=== PATIENT | female | born 1980 | race Caucasian/White ===

== ENCOUNTER 2018-04-29 18:14 | Emergency (ER) | payer SELFPAY ==
[~2018-04-29] VITALS: Ht 170.2 cm; Wt 59.0 kg
[~2018-04-29 18:14] MED LIST: ACHD5005 PO; CALC-140 PO; CYCL10TA9 PO; DICY20TA10 PO; FERR-65 PO; FRS325T PO; GBPN100C PO; HYDR-2890 PO; IBP800T PO; LAMO25TA PO; METO10TA3 PO; METR500T PO; NF-ESOM40C PO; PANT20TA PO; PREN1TAB14 PO; ZLP10T PO
--- OUTSIDE RECORDS SUMMARY | 2018-04-29 18:19 | XMS REPORT ---
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 879315833 Problem Other and unspecified bipolar disorders 296.89 Active 01430726 Problem Encounter for insertion of intrauterine contraceptive device V25.11 Active 92169568 Problem Posttraumatic stress disorder 309.81 Active 26500587 Problem Unspecified antepartum hemorrhage, unspecified as to episode of care 641.90 Active 57390021 Problem Other symptoms referable to back 724.8 Active 591176886 Problem Acute upper respiratory infections of unspecified site 465.9 Active 47133600 Problem Unspecified vaginitis and vulvovaginitis 616.10 Active 982309200 Problem Routine follow-up V24.2 Active 467876452 Problem Unspecified high-risk V23.9 Active 60569943 Problem Encounter for long-term (current) use of other medications V58.69 Active 984486221 Problem Other general counseling and advice for contraceptive management V25.09 Active 163967443 Problem Dysuria 788.1 Active 77119606 Problem Diarrhea 787.91 Active 44497633 Problem DTAP TEST V06.1 Active Problem Heartburn 787.1 Active 98297383 Problem Need for prophylactic vaccination and inoculation against rubella alone V04.3 Active 873279302 Problem Nausea alone 787.02 Active 895373745 ALLERGIES Substance Reaction Event Type Date Status Percocet lethargy Drug Allergy Oct, Active ENCOUNTERS Encounter Location Date Diagnosis [facility] [address] [facility] [id number] [address] Oct, Laceration of floor of mouth, initial encounter S01.512A [facility] [address] [id number] Oct, Laceration of floor of mouth, initial encounter S01.512A [facility] [address] [id number] [place] [address] 14 Dec, 2014 [facility] [address] [id number] [place] [address] Dec, [facility] [address] [id number] [place] [address] May, [facility] [address] [facility] [id number] [place] [address] May, [facility] [address] [facility] [id number] [place] [address] Mar, [facility] [address] [facility] [id number] [place] [address] January, [facility] [address] [facility] [id number] [place] [address] January, [facility] [address] [facility] [id number] [place] [address] January, [facility] [address] [facility] [id number] [place] [address] January, [facility] [address] [facility] [id number] [place] [address] Dec, [facility] [address] [facility] [id number] [place] [address] Nov, [facility] [address] [facility] [id number] [place] [address] Nov, [facility] [address] [facility] [id number] [place] [address] Nov, [facility] [address] [facility] [id number] [place] [address] Nov, [facility] [address] [id number] [place] [address] Oct, [facility] [place] [facility] [address] [id number] [place] [address] Oct, [facility] [address] [facility] [id number] [place] [address] Oct, [facility] [place] [facility] [address] [id number] [place] [address] 16 Oct, 2012 [facility] [address] [id number] [place] [address] 15 Oct, 2012 [facility] [address] [id number] [place] [address] 14 Oct, 2012 [facility] [address] [id number] [place] [address] Oct, [facility] [place] [facility] [address] [id number] [place] [address] 19 Sep, 2012 [facility] [address] [id number] [place] [address] 18 Sep, 2012 [facility] [place] [facility] [address] [id number] [place] [address] 17 Sep, 2012 [facility] [place] [facility] [address] [id number] [place] [address] 17 Sep, 2012 [facility] [place] [facility] [address] [id number] [place] [address] 16 Sep, 2012 [facility] [place] [facility] [address] [id number] [place] [address] 15 Sep, 2012 [facility] [place] [facility] [address] [id number] [place] [address] 14 Sep, 2012 [facility] [place] [facility] [address] [id number] [place] [address] 14 Sep, 2012 [facility] [place] [facility] [address] [id number] [place] [address] 13 Sep, 2012 [facility] [address] [id number] [place] [address] 13 Sep, 2012 [facility] [address] [id number] [place] [address] Aug, [facility] [address] [id number] [place] [address] Aug, [facility] [address] [id number] [place] [address] Aug, [facility] [address] [id number] [place] [address] Aug, [facility] [address] [id number] [place] [address] Aug, [facility] [address] [id number] [place] [address] Aug, [facility] [address] [id number] [place] [address] 15 Aug, 2012 [facility] [address] [id number] [place] [address] Nov, [facility] [address] [id number] [place] [address] Oct, [facility] [address] [id number] [place] [address] Oct, [facility] [address] [id number] [place] [address] Sep, [facility] [place] [facility] [address] [id number] [place] [address] Sep, [facility] [place] [facility] [address] [id number] [place] [address] Sep, [facility] [address] [id number] [place] [address] Sep, [facility] [address] [facility] [id number] [place] [address] Sep, [facility] [address] [facility] [id number] [place] [address] Sep, [facility] [address] [facility] [id number] [place] [address] Sep, IMMUNIZATIONS No Known Immunizations SOCIAL HISTORY Never Assessed REASON FOR VISIT USP PLAN OF CARE VITAL SIGNS Height 67 in 2017-10-10 Weight 132 lbs 2017-10-10 Heart Rate 76 bpm 2017-10-10 Respiratory Rate 16 2017-10-10 BMI 20.67 kg/m2 2017-10-10 Blood pressure systolic 108 mmHg 2017-10-10 Blood pressure diastolic 78 mmHg 2017-10-10 MEDICATIONS Medication Instructions Dosage Frequency Start Date End Date Duration Status Depakote 500 mg Orally 2 times a day 1 tablet 12h Oct, Active Bactrim DS 800-160 MG Orally Twice a day 1 tablet 12h Oct,Oct 10 day(s) Active RESULTS No Results PROCEDURES No Known procedures INSTRUCTIONS MEDICATIONS ADMINISTERED No Known Medications
--- OUTSIDE RECORDS SUMMARY | 2018-04-29 18:19 | XMS REPORT ---
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 895130571 Problem Other and unspecified bipolar disorders 296.89 Active 65285059 Problem Encounter for insertion of intrauterine contraceptive device V25.11 Active 05865490 Problem Posttraumatic stress disorder 309.81 Active 18148458 Problem Unspecified antepartum hemorrhage, unspecified as to episode of care 641.90 Active 38644042 Problem Other symptoms referable to back 724.8 Active 852930863 Problem Acute upper respiratory infections of unspecified site 465.9 Active 86969486 Problem Unspecified vaginitis and vulvovaginitis 616.10 Active 250100214 Problem Routine follow-up V24.2 Active 096944817 Problem Unspecified high-risk V23.9 Active 67894981 Problem Encounter for long-term (current) use of other medications V58.69 Active 760979392 Problem Other general counseling and advice for contraceptive management V25.09 Active 752524701 Problem Dysuria 788.1 Active 05643464 Problem Diarrhea 787.91 Active 98342633 Problem DTAP TEST V06.1 Active Problem Heartburn 787.1 Active 25258889 Problem Need for prophylactic vaccination and inoculation against rubella alone V04.3 Active 468722165 Problem Nausea alone 787.02 Active 340643692 ALLERGIES No Information ENCOUNTERS Encounter Location Date Diagnosis [facility] [address] [facility] [id number] [address] Oct, Laceration of floor of mouth, initial encounter S01.512A [facility] [address] [place] [id number] Oct, Laceration of floor of mouth, initial encounter S01.512A [facility] [address] [id number] [place] [address] 14 Dec, 2014 [facility] [address] [id number] [place] [address] Dec, [facility] [address] [id number] [place] [address] May, [facility] [address] [id number] [place] [address] May, [facility] [address] [facility] [id number] [place] [address] Mar, [facility] [address] [id number] [place] [address] January, [facility] [address] [id number] [place] [address]- 1408 January, [facility] [address] [id number] [place] [address]- 95[address] January, [facility] [address] [place] [id number] [place] [address] January, [facility] [address] [id number] [place] [address]- 12[address] Dec, [facility] [address] [id number] [place] [address]- 83[address] Nov, [facility] [address] [id number] [place] [address]- [address] Nov, [facility] [address] [facility] [id number] [place] [address] Nov, [facility] [address] [facility] [id number] [place] [address]- [address]676 Nov, [facility] [address] [id number] [place] [address]- 69[address] 23 Oct, 2012 [facility] [address] [id number] [place] [address]- [address] Oct, [facility] [address] [id number] [place] [address]- [address] 21 Oct, 2012 [facility] [address] [id number] [place] [address]- 3983 16 Oct, 2012 [facility] [address] [id number] [place] [address]- 77[address] 15 Oct, 2012 [facility] [address] [id number] [place] [address]- 3360 14 Oct, 2012 [facility] [address] [id number] [place] [address]- [address] 08 Oct, 2012 [facility] [address] [id number] [place] [address]- 7469 19 Sep, 2012 [facility] [address] [id number] [place] [address]- 59[address] 18 Sep, 2012 [facility] [address] [id number] [place] [address]- 8598 17 Sep, 2012 [facility] [address] [id number] [place] [address]- 8761 17 Sep, 2012 [facility] [address] [id number] [place] [address]- [address]388 16 Sep, 2012 [facility] [address] [id number] [place] [address]- 6[address] 15 Sep, 2012 [facility] [address] [id number] [place] [address]- 9659 14 Sep, 2012 [facility] [address] [id number] [place] [address]- [address] 14 Sep, 2012 [facility] [address] [id number] [place] [address]- 54[address] 13 Sep, 2012 [facility] [place] [facility] [address] [id number] [place] [address]- 23[address] 13 Sep, 2012 [facility] [place] [facility] [address] [id number] [place] [address]- 3665 Aug, [facility] [place] [facility] [address] [id number] [place] [address]- 3287 Aug, [facility] [place] [facility] [address] [id number] [place] [address]- 0957 Aug, [facility] [place] [facility] [address] [id number] [place] [address]- 2583 Aug, [facility] [place] [facility] [address] [id number] [place] [address]- 5198 Aug, [facility] [place] [facility] [address] [id number] [place] [address]- [address] 15 Aug, 2012 [facility] [place] [facility] [address] [id number] [place] [address]- 68[address] 15 Aug, 2012 [facility] [place] [facility] [address] [id number] [place] [address]- 6[address] Nov, [facility] [place] [facility] [address] [id number] [place] [address]- 5[address] Oct, [facility] [place] [facility] [address] [id number] [place] [address]- 1197 Oct, [facility] [place] [facility] [address] [id number] [place] [address]- 6357 Sep, [facility] [place] [facility] [address] [id number] [place] [address]- 3507 Sep, [facility] [place] [facility] [address] [id number] [place] [address]- 8904 Sep, [facility] [place] [facility] [address] [id number] [place] [address]- 5693 Sep, [facility] [place] [facility] [address] [facility] [id number] [place] [address]- [address] Sep, [facility] [address] [facility] [id number] [place] [address]- [address] Sep, [facility] [address] [facility] [id number], [place] [address] Sep, IMMUNIZATIONS No Known Immunizations SOCIAL HISTORY Never Assessed REASON FOR VISIT Refill PLAN OF CARE VITAL SIGNS MEDICATIONS Medication Instructions Dosage Frequency Start Date End Date Duration Status Bactrim DS 800-160 MG Orally Twice a day 1 tablet 12h Oct,Oct 10 day(s) Active Depakote 500 MG Orally 2 times a day 1 tablet 12h Oct, 30 days Active RESULTS No Results PROCEDURES No Known procedures INSTRUCTIONS MEDICATIONS ADMINISTERED No Known Medications
--- OUTSIDE RECORDS SUMMARY | 2018-04-29 18:20 | XMS REPORT | Continuity of Care Document ---
Author Author [facility] Organization [facility] Address Unknown Phone Unavailable Support Name Relationship Address Phone HOWIE QUESADA Next Of Kin [address] [place] [address] Insurance Providers Payer Name Policy Number Subscriber Name Relationship [facility] [id number] Lucy Resendez 01 Self / Same As Patient Advance Directives Directive Response Recorded Date Advance Directives N 03/05/13 5:51pm Health Care Power of Dial Marker N 02/22/13 1:40pm Organ Donor Y 03/05/13 5:51pm Problems No Known Problems or Medical conditions. Allergies, Adverse Reactions, Alerts Allergen Type Severity Reaction Last Updated Oxycodone Allergy Unknown 07/06/07 Acetaminophen Allergy Unknown 07/06/07 Ciprofloxacin Allergy Unknown 12/15/06 Medications Medication Dose Units Route Sig Qty Days Cyclobenzaprine HCl (Cyclobenzaprine Hcl) 1 Each PO Q8HR PRN Vits W-Ca,Fe,Fa(<1MG) ( Vitamins) 1 Each PO DAILY Esomeprazole Magnesium (Nexium) 1 Cap PO DAILY PRN 30 Zolpidem Tartrate (Ambien 10 Mg) 10 Mg PO HS Dicyclomine Hcl 20 Mg PO PRN Lamotrigine 50 Mg PO DAILY Gabapentin (Neurontin) 100 Mg PO TID Immunizations Name Given Type Date of Influenza Vaccine 08/02/12 H Response Recorded Date/Time Status not known Unknown Results No Known Relevant Diagnostic Tests, Laboratory Data and/or Discharge Summary. Procedures Procedure Code Date LAPAROSCOPY SALPINGOSTOMY 47912 05/18/06 TREAT ECTOPIC 89121 05/18/06 DILATION AND CURETTAGE 46290 05/18/06 TREAT ECTOPIC 32168 06/16/06 RPR VENTRAL MARIVEL INIT BLOCK 41865 LOW CERVICAL 74.1 09/20/07 INSTRUMENT DELIVERY NOS 72.9 09/20/07 LAP INC HERNIA REPAIR RECUR 09194 Encounters Encounter Location Date/Time Pre-admitted Inpatient [facility] 2:30pm Departed Emergency Room [facility] 29/09 3:19pm Discharged Inpatient [facility] 6:07am
--- OUTSIDE RECORDS SUMMARY | 2018-04-29 18:20 | XMS REPORT | Continuity of Care Document ---
Author Author [facility] Organization [facility] Address Unknown Phone Unavailable Support Name Relationship Address Phone HOWIE QUESADA Next Of Kin [address] [place] [address] Insurance Providers Payer Name Policy Number Subscriber Name Relationship [facility] [id number] Angelica Resendez 01 Self / Same As Patient Advance Directives Directive Response Recorded Date Advance Directives N 03/05/13 5:51pm Health Care Power of Coil Tier N 02/22/13 1:40pm Organ Donor Y 03/05/13 [...] Recorded Date/Time Status not known Unknown Results Test Date Result Interp. Ref. Range Alanine Aminotransferase (ALT/SGPT) December 23, 2008 5:35am 24 U/L L 30-65 Albumin December 23, 2008 5:35am 3.6 G/DL N 3.4-5.0 Alkaline Phosphatase December 23, 2008 5:35am 94 U/L N 50-136 Amphetamines Screen May 18, 2006 7:50pm Negative - Amylase Level April 06, 2008 7:45pm 28 U/ L N 25-115 Anisocytosis May 19, 2006 6:13am Slight - Aspartate Amino Transf (AST/SGOT) December 23, 2008 5:35am 12 U/L L 15-37 BUN/Creatinine Ratio October 30, 2011 3:53pm 14 - Band Neutrophils May 19, 2006 6:13am 2 - Basophils # (Auto) October 30, 2011 3:53pm 0.0 10^3/uL N 0.0-0.1 Basophils (%) (Auto) October 30, 2011 3:53pm 1 % N 0-10 Blood Urea Nitrogen October 30, 2011 3:53pm 11 MG/DL N 7-18 Calcium Level October 30, 2011 3:53pm 8.6 MG/DL N 8.5-10.1 Carbon Dioxide Level October 30, 2011 3:53pm 28 MMOL/L N 21-32 Chlamydia DNA Probe June 16, 2006 4:15am Neg - Chlamydia/GC DNA Probe Source June 16, 2006 4:15am Cervix - Chloride Level October 30, 2011 3:53pm 98 MMOL/L L 101-110 Cocaine Screen May 18, 2006 7:50pm Negative - Creatinine October 30, 2011 3:53pm 0.8 MG/DL N 0.6-1.3 Eosinophils # (Auto) October 30, 2011 3:53pm 0.1 10^3/uL N 0.0-0.3 Eosinophils % (Manual) May 19, 2006 6:13am 6 - Eosinophils (%) (Auto) October 30, 2011 3:53pm 2 % N 0-10 Glucose Level October 30, 2011 3:53pm 89 MG/DL N 74-106 Group A Streptococcus Screen December 23, 2008 5:56am NEGATIVE - HIV (1&2) Antibody May 18, 2006 7:00pm See report - HIV (1&2) Antibody Interpretation May 18, 2006 7:00pm See report - Hematocrit October 30, 2011 3:53pm 39 % N 35-52 Hemoglobin February 22, 2013 3:20pm 9.9 G/DL L 11.5-16.0 Hepatitis B Surface Antigen May 18, 2006 7:00pm See report - Human Chorionic Gonadotropin, Quant June 16, 2006 4: 00am 283 MIU/ML H 0-6 Lipase April 06, 2008 7:45pm 165 U/L N 114-286 Lymphocytes # (Auto) October 30, 2011 3:53pm 1.5 X 10^3 N 1.0-4.0 Lymphocytes % (Manual) May 19, 2006 6:13am 53 - Lymphocytes (%) (Auto) October 30, 2011 3:53pm 17 % N 12-44 Marijuana (THC) Screen May 18, 2006 7:50pm Positive - Mean Corpuscular Hemoglobin October 30, 2011 3:53pm 33 PG N 25-34 Mean Corpuscular Hemoglobin Concent October 30, 2011 3:53pm 34 G/DL N 32-36 Mean Corpuscular Volume October 30, 2011 3:53pm 95 FL N 80-99 Mean Platelet Volume October 30, 2011 3:53pm 10.1 FL N 7.4-10.4 Microcytosis May 19, 2006 6:13am Slight - Monocytes # (Auto) October 30, 2011 3:53pm 0.6 X 10^3 N 0.0-1.0 Monocytes % (Manual) May 19, 2006 6:13am 4 - Monocytes (%) (Auto) October 30, 2011 3:53pm 7 % N 0-12 Neisseria gonorrhoeae DNA Probe June 16, 2006 4:15am Neg - Neutrophils # (Auto) October 30, 2011 3:53pm 6.4 X 10^3 N 1.8-7.8 Neutrophils % (Manual) May 19, 2006 6:13am 35 - Neutrophils (%) (Auto) October 30, 2011 3:53pm 73 % N 42-75 Opiates Screen May 18, 2006 7:50pm Positive - Platelet Count October 30, 2011 3:53pm 264 10^3/uL N 130-400 Potassium Level October 30, 2011 3:53pm 3.8 MMOL/L N 3.6-5.0 Rapid Plasma Reagin May 18, 2006 7:00pm Non-reactive - Red Blood Count October 30, 2011 3:53pm 4.12 10^6/uL L 4.35-5.85 Red Cell Distribution Width October 30, 2011 3:53pm 12.3 % N 10.0-14.5 Serum Test, Qualitative October 30, 2011 3:53pm NEGATIVE - Sodium Level October 30, 2011 3:53pm 136 MMOL/L N 135-145 Thyroid Stimulating Hormone (TSH) December 13, 2006 12:55pm 1.23 UIU/ML N 0.34-5.60 Total Bilirubin December 23, 2008 5:35am 0.3 MG/DL N 0.0-1.0 Total Protein December 23, 2008 5:35am 7.7 G/DL N 6.4-8.2 Tricyclic Antidepressants Screen May 18, 2006 7:50pm Negative - Ur Tricyclic Antidepressants Screen December 15, 2006 12:00pm Positive - Urine Amorphous Sediment October 30, 2011 4:30pm RARE ECTOR URATES H - Urine Amphetamines Screen December 15, 2006 12:00pm Negative - Urine Bacteria October 30, 2011 4:30pm TRACE - Urine Barbiturates Screen December 15, 2006 12:00pm Negative - Urine Benzodiazepines Screen December 15, 2006 12:00pm Negative - Urine Bilirubin October 30, 2011 4:30pm NEGATIVE - Urine Casts October 30, 2011 4:30pm NONE - Urine Clarity October 30, 2011 4:30pm CLEAR - Urine Cocaine Screen December 15, 2006 12:00pm Negative - Urine Color October 30, 2011 4:30pm YELLOW - Urine Crystals October 30, 2011 4:30pm PRESENT H - Urine Culture Indicated October 30, 2011 4:30pm NO - Urine Glucose (UA) October 30, 2011 4:30pm NEGATIVE - Urine Ketones October 30, 2011 4:30pm NEGATIVE - Urine Leukocyte Esterase October 30, 2011 4:30pm 1+ H - Urine Methamphetamines Screen December 15, 2006 12:00pm Negative - Urine Mucus October 30, 2011 4:30pm TRACE - Urine Nitrate September 20, 2007 6:10am Negative - Urine Nitrite October 30, 2011 4:30pm NEGATIVE - Urine Opiates Screen December 15, 2006 12:00pm Negative - Urine Phencyclidine Screen December 15, 2006 12:00pm Negative - Urine Test September 12, 2011 2:01pm NEGATIVE - Urine Propoxyphene Screen December 15, 2006 12:00pm Negative - Urine Protein October 30, 2011 4:30pm NEGATIVE - Urine RBC October 30, 2011 4:30pm 0-2 / HPF - Urine Specific [place] October 30, 2011 4:30pm 1.015 L - Urine Squamous Epithelial Cells October 30, 2011 4:30pm 5-10 - Urine Urobilinogen October 30, 2011 4:30pm NORMAL MG/DL - Urine WBC October 30, 2011 4:30pm NONE / HPF - Urine pH October 30, 2011 4:30pm 6.0 - White Blood Count October 30, 2011 3:53pm 8.8 10^3/uL N 4.3-11.0 Barbiturate Screen May 18, 2006 7:50pm Negative - Serum Alcohol May 19, 2006 6:13am < 5 MG/DL L 5-300 Lab Scanned Report July 04, 2011 12:50pm LAB Reports [id number] - Estimat Glomerular Filtration Rate October 30, 2011 3:53pm > 60 - Urine Oxycodone Screen December 15, 2006 12:00pm Negative - Urine Methadone Screen December 15, 2006 12:00pm Negative - Urine Cannabinoids Screen December 15, 2006 12:00pm Positive - Urine RBC (Auto) October 30, 2011 4:30pm 1+ H - Procedures Procedure Code Date LAPAROSCOPY SALPINGOSTOMY 24760 05/18/06 TREAT ECTOPIC 75967 05/18/06 DILATION AND CURETTAGE 95548 05/18/06 TREAT ECTOPIC 78900 06/16/06 RPR VENTRAL MARIVEL INIT BLOCK 09454 LOW CERVICAL 74.1 09/20/07 INSTRUMENT DELIVERY NOS 72.9 09/20/07 LAP INC HERNIA REPAIR RECUR 06202 Wet Prep 06/16/06 MRSA Screen 04/30/09 Urine Culture 04/06/08 Gram Stain 12/01/07 Encounters Encounter Location Date/Time Discharged Inpatient [facility] 5:45pm Pre-admitted Inpatient [facility] 2:30pm Departed Emergency Room [facility] 29/09 3:19pm
--- OUTSIDE RECORDS SUMMARY | 2018-04-29 18:20 | XMS REPORT | Continuity of Care Document ---
Author Author [facility] Organization [facility] Address Unknown Phone Unavailable Support Name Relationship Address Phone HOWIE QUESADA Next Of Kin [address] [place] [address] Insurance Providers Payer Name Policy Number Subscriber Name Relationship [facility] [id number] Angelica Resendez 01 Self / Same As Patient Advance Directives Directive Response Recorded Date Advance Directives N 02/22/13 1:40pm Health Care Power of Editor City N 02/22/13 1:40pm Organ Donor Y 02/22/13 1:40pm Problems No Known Problems or Medical conditions. Allergies, Adverse Reactions, Alerts Allergen Type Severity Reaction Last Updated Oxycodone Allergy Unknown 07/06/07 Acetaminophen Allergy Unknown 07/06/07 Ciprofloxacin Allergy Unknown 12/15/06 Medications Medication Dose Units Route Sig Qty Days Vits W-Ca,Fe,Fa(<1MG) ( Vitamins) 1 Each PO DAILY Zolpidem Tartrate (Ambien 10 Mg) 10 Mg PO HS Esomeprazole Magnesium (Nexium) 1 Cap PO DAILY 30 Dicyclomine Hcl 20 Mg PO PRN Lamotrigine [...] 2011 3:53pm 39 % N 35-52 Hemoglobin October 30, 2011 3:53pm 13.4 G/DL N 11.5-16.0 Hepatitis B Surface Antigen May 18, [...] 4:30pm 0-2 / HPF - Urine Specific [place] October 30, 2011 4:30pm 1.015 L - [...] Report July 04, 2011 12:50pm LAB Reports [id number] - Estimat Glomerular Filtration Rate October 30, 2011 3:53pm > 60 - Urine Oxycodone Screen December 15, 2006 12:00pm Negative - Urine Methadone Screen December 15, 2006 12:00pm Negative - Urine Cannabinoids Screen December 15, 2006 12:00pm Positive - Urine RBC (Auto) October 30, 2011 4:30pm 1+ H - Procedures Procedure Code Date LAPAROSCOPY SALPINGOSTOMY 34117 05/18/06 TREAT ECTOPIC 77583 05/18/06 DILATION AND CURETTAGE 55838 05/18/06 TREAT ECTOPIC 40874 06/16/06 RPR VENTRAL AMRIVEL INIT BLOCK 72093 LOW CERVICAL 74.1 09/20/07 INSTRUMENT DELIVERY NOS 72.9 09/20/07 LAP INC HERNIA REPAIR RECUR 46318 Wet Prep 06/16/06 MRSA Screen 04/30/09 Urine Culture 04/06/08 Gram Stain 12/01/07 Encounters Encounter Location Date/Time Departed Emergency Room [facility] 29/09 3:19pm Discharged Inpatient [facility] 6:07am
--- OUTSIDE RECORDS SUMMARY | 2018-04-29 18:20 | XMS REPORT | Continuity of Care Document ---
Author Author [facility] Organization [facility] Address Unknown Phone Unavailable Support Name Relationship Address Phone HOWIE QUESADA Next Of Kin [address] [place] [address] Insurance Providers Payer Name Policy Number Subscriber Name Relationship [facility] [id number] Angelica Resendez 01 Self / Same As Patient Advance Directives Directive Response Recorded Date Advance Directives N 03/09/13 11:25pm Health Care Power of Linen Manager N 02/22/13 1:40pm Organ Donor Y 03/09/13 11:25pm Problems No Known Problems or Medical conditions. Allergies, Adverse Reactions, Alerts Allergen Type Severity Reaction Last Updated Oxycodone Allergy Unknown 07/06/07 acetaminophen Allergy Unknown 07/06/07 ciprofloxacin Allergy Unknown 12/15/06 Medications Medication Dose Units Route Sig Qty Days Hydrocodone Bit/Acetaminophen (Hydrocodon-Acetaminophn 10-325) 1 Each PO PRN Cyclobenzaprine HCl (Cyclobenzaprine Hcl) 1 Each PO [...] 4:30pm 0-2 / HPF - Urine Specific [place] October 30, 2011 4:30pm 1.015 L - [...] Report July 04, 2011 12:50pm LAB Reports [id number] - Estimat Glomerular Filtration Rate October 30, 2011 3:53pm > 60 - Urine Oxycodone Screen December 15, 2006 12:00pm Negative - Urine Methadone Screen December 15, 2006 12:00pm Negative - Urine Cannabinoids Screen December 15, 2006 12:00pm Positive - Urine RBC (Auto) October 30, 2011 4:30pm 1+ H - Procedures Procedure Code Date LAPAROSCOPY SALPINGOSTOMY 05711 05/18/06 TREAT ECTOPIC 37564 05/18/06 DILATION AND CURETTAGE 93991 05/18/06 TREAT ECTOPIC 07213 06/16/06 RPR VENTRAL MARIVEL INIT BLOCK 79080 LOW CERVICAL 74.1 09/20/07 INSTRUMENT DELIVERY NOS 72.9 09/20/07 LAP INC HERNIA REPAIR RECUR 30978 Wet Prep 06/16/06 MRSA Screen 04/30/09 Urine Culture 04/06/08 Gram Stain 12/01/07 Encounters Encounter Location Date/Time Pre-admitted Inpatient [facility] 2:30pm Departed Emergency Room [facility] 29/09 3:19pm Discharged Inpatient [facility] 6:07am
--- OUTSIDE RECORDS SUMMARY | 2018-04-29 18:21 | XMS REPORT | Continuity of Care Document ---
Author Author [facility] Organization [facility] Address Unknown Phone Unavailable Support Name Relationship Address Phone HOWIE QUESADA Next Of Kin [address] [place] [address] Insurance Providers Payer Name Policy Number Subscriber Name Relationship [facility] [id number] Angelica Resendez 01 Self / Same As Patient Advance Directives Directive Response Recorded Date Advance Directives N 03/19/13 9:22am Health Care Power of Archery Equipment Hay Sorter N 03/19/13 9:22am Organ Donor Y 03/19/13 9:22am Problems No Known Problems or Medical conditions. Family History History Response Recorded Date/Time Hx Family Cancer Y GRANDPARENTS 03/19/13 9:30am Hx Family Lung Cancer Y 03/19/13 9:30am Hx Family Cardiac Disorders Y 03/19/13 9: 30am Hx Family Hypertension N 03/19/13 9:30am Social History History Response Recorded Date/Time Alcohol Use Denies Use 03/19/13 9:23am Recreational Drug Use N ALCOHOL, 9:23am Recent Foreign Travel N 03/19/13 9:23am Recent Infectious Disease Exposure N 9:23am Hospitalization with Isolation Denies 1:48pm Sexually Transmitted Disease N 03/19/13 9 :23am HIV/AIDS N 03/19/13 9:23am Allergies, Adverse Reactions, Alerts Allergen Type Severity Reaction Last Updated Oxycodone Allergy Unknown 07/06/07 acetaminophen Allergy Unknown 07/06/07 Medications Medication Dose Units Route Sig Qty Days Ferrous Sulfate (Iron) 1 Tab PO DAILY 90 Ibuprofen (Motrin) 600 Mg PO Q6HR 40 Acetaminophen/Hydrocodone Bitart (Lorcet 5/325 Mg) 1 - 2 Tab PO q 4-6 hrs prn PRN 45 Metoclopramide HCl (Metoclopramide Hcl) 10 Mg PO QID Pantoprazole Sodium 20 Mg PO DAILY Hydrocodone Bit/Acetaminophen (Hydrocodon-Acetaminophn 10-325) 10 - 325 Mg PO EVERY 4-6 HOURS PRN Vits W-Ca,Fe,Fa(<1MG) ( Vitamins) 1 Tab PO DAILY Metronidazole 500 Mg PO BID FOR 7 DAYS Cyclobenzaprine HCl (Cyclobenzaprine Hcl) 1 Each PO Q8HR PRN Esomeprazole Magnesium (Nexium) 1 Cap PO DAILY PRN 30 Zolpidem Tartrate (Ambien 10 Mg) 10 Mg PO HS Dicyclomine Hcl 20 Mg PO PRN Lamotrigine 50 Mg PO DAILY Gabapentin (Neurontin) 100 Mg PO TID Immunizations Name Given Type Date of Influenza Vaccine 08/02/12 H MMR 03/21/13 A DTaP 03/19/13 A Response Recorded Date/Time Status not known Unknown [...] 2006 6:13am 2 - Basophils # (Auto) March 13, 2013 3:00pm 0.0 10^3/uL N 0.0-0.1 Basophils (%) (Auto) March 13, 2013 3:00pm 0 % N 0-10 Blood Urea Nitrogen October 30, 2011 3:53pm 11 MG/DL N 7-18 Calcium Level October 30, 2011 3:53pm 8.6 MG/DL N 8.5-10.1 Carbon Dioxide Level October 30, 2011 3:53pm 28 MMOL/L N 21-32 Chlamydia DNA Probe March 10, 2013 10:35am NEG - Chlamydia/GC DNA Probe Source March 10, 2013 10:35am UNKNOWN - Chloride Level October 30, 2011 3:53pm 98 MMOL/L L 101-110 Cocaine Screen May 18, 2006 7:50pm Negative - Creatinine October 30, 2011 3:53pm 0.8 MG/DL N 0.6-1.3 Eosinophils # (Auto) March 13, 2013 3:00pm 0.1 10^3/uL N 0.0-0.3 Eosinophils % (Manual) May 19, 2006 6:13am 6 - Eosinophils (%) (Auto) March 13, 2013 3:00pm 1 % N 0-10 Glucose Level October 30, 2011 3:53pm 89 MG/DL N 74-106 Group A Streptococcus Screen December 23, 2008 5:56am NEGATIVE - HIV (1&2) Antibody May 18, 2006 7:00pm See report - HIV (1&2) Antibody Interpretation May 18, 2006 7:00pm See report - Hematocrit March 13, 2013 3:00pm 31 % L 35-52 Hemoglobin March 13, 2013 3:00pm 10.4 G/ DL L 11.5-16.0 Hepatitis B Surface Antigen May 18, 2006 7:00pm See report - Human Chorionic Gonadotropin, Quant June 16, 2006 4: 00am 283 MIU/ML H 0-6 Lipase April 06, 2008 7:45pm 165 U/L N 114-286 Lymphocytes # (Auto) March 13, 2013 3:00pm 1.8 X 10^3 N 1.0-4.0 Lymphocytes % (Manual) May 19, 2006 6:13am 53 - Lymphocytes (%) (Auto) March 13, 2013 3:00pm 14 % N 12-44 Marijuana (THC) Screen May 18, 2006 7:50pm Positive - Mean Corpuscular Hemoglobin March 13, 2013 3:00pm 33 PG N 25-34 Mean Corpuscular Hemoglobin Concent March 13, 2013 3:00pm 34 G/DL N 32-36 Mean Corpuscular Volume March 13, 2013 3:00pm 96 FL N 80-99 Mean Platelet Volume March 13, 2013 3:00pm 12.0 FL H 7.4-10.4 Microcytosis May 19, 2006 6:13am Slight - Monocytes # (Auto) March 13, 2013 3:00pm 1.0 X 10^3 N 0.0-1.0 Monocytes % (Manual) May 19, 2006 6:13am 4 - Monocytes (%) (Auto) March 13, 2013 3:00pm 7 % N 0-12 Neisseria gonorrhoeae DNA Probe March 10, 2013 10:35am NEG - Neutrophils # (Auto) March 13, 2013 3:00pm 10.5 X 10^3 H 1.8-7.8 Neutrophils % (Manual) May 19, 2006 6:13am 35 - Neutrophils (%) (Auto) March 13, 2013 3:00pm 78 % H 42-75 Opiates Screen May 18, 2006 7:50pm Positive - Platelet Count March 13, 2013 3:00pm 146 10^3/uL N 130-400 Potassium Level October 30, 2011 3:53pm 3.8 MMOL/L N 3.6-5.0 Rapid Plasma Reagin May 18, 2006 7:00pm Non-reactive - Red Blood Count March 13, 2013 3:00pm 3.18 10^6/uL L 4.35-5.85 Red Cell Distribution Width March 13, 2013 3:00pm 12.3 % N 10.0-14.5 Serum Test, Qualitative [...] 4:30pm 0-2 / HPF - Urine Specific [place] October 30, 2011 4:30pm 1.015 L - Urine Squamous Epithelial Cells October 30, 2011 4:30pm 5-10 - Urine Urobilinogen October 30, 2011 4:30pm NORMAL MG/DL - Urine WBC October 30, 2011 4:30pm NONE / HPF - Urine pH October 30, 2011 4:30pm 6.0 - White Blood Count March 13, 2013 3:00pm 13.4 10^3/uL H 4.3-11.0 Barbiturate Screen May 18, 2006 7:50pm Negative - Serum Alcohol May 19, 2006 6:13am < 5 MG/DL L 5-300 Lab Scanned Report July 04, 2011 12:50pm LAB Reports [id number] - Estimat Glomerular Filtration Rate October 30, 2011 3:53pm > 60 - Urine Oxycodone Screen December 15, 2006 12:00pm Negative - Urine Methadone Screen December 15, 2006 12:00pm Negative - Urine Cannabinoids Screen December 15, 2006 12:00pm Positive - Urine RBC (Auto) October 30, 2011 4:30pm 1+ H - Procedures Procedure Code Date LAPAROSCOPY SALPINGOSTOMY 19024 05/18/06 TREAT ECTOPIC 86987 05/18/06 DILATION AND CURETTAGE 31298 05/18/06 TREAT ECTOPIC 34797 06/16/06 RPR VENTRAL MARIVEL INIT BLOCK 00620 LOW CERVICAL 74.1 09/20/07 INSTRUMENT DELIVERY NOS 72.9 12/20/07 LAP INC HERNIA REPAIR RECUR 84562 Genital Culture 03/10/13 MRSA Screen 04/30/09 Urine Culture 04/06/08 Gram Stain 12/01/07 Encounters Encounter Location Date/Time Discharged Inpatient [facility] 8:13am Departed Emergency Room [facility] 29/09 3:19pm
--- NOTE | 2018-04-29 18:38 | ED General ---
General Stated Complaint: FATIGUE,WEAK,PASSED OUT YESTERDAY Source of Information: Patient, Spouse Exam Limitations: No Limitations History of Present Illness Date Seen by Provider: Apr 29, 2018 Time Seen by Provider: 18:21 Initial Comments Patient presents to the ER by private conveyance with her spouse and a chief complaint the past for 5 days she's been having some fatigue and myalgias weakness and yesterday at [employer] she was going to get something to eat she passed out and then pulled herself up into a chair while ordering. Vega marchst and she ate those because she felt like her blood sugar was low. She does not have a history of diabetes but she does have a history of gestational diabetes 2 years ago. She has her tubes tied now. She did not check her blood sugar. She has a history of bipolar disorder but does not take any medicines for it. She does take iron for chronic anemia and follows at [facility]. She smokes pack and half per day and drinks about once every 3 months and denies any recent history of drug use but back in her college days she says she used marijuana. No sick contacts around her and there's been no travel outside the [facility] drinking or eating from unsafe food or water sources, camping or austere living. The patient states many years ago she had problems with urinary tract infections but she's no longer experiencing those and she says she knows it does feel like an she's not having any symptoms of frequency, burning, discharge, dysuria. She's also noticed about a month or 2 ago she had a pea sized area of thinning hair on the left top of her head that has slowly gained in size but she's not had it checked out. Allergies and Home Medications Allergies Coded Allergies: acetaminophen (Verified Allergy, Unknown, 07/06/07) oxycodone (Verified Allergy, Unknown, 07/06/07) Home Medications Calcium Carbonate/Vitamin D3 1 Each Tablet, 1 EACH PO DAILY, (Reported) Ferrous Sulfate 325 Mg Tablet, 65 MG PO BID, (Reported) Vits W-Ca,Fe,Fa(<1MG) 1 Each Tablet, 1 TAB PO DAILY, (Reported) Patient Home Medication List Home Medication List Reviewed: Yes Review of Systems Constitutional: No chills, No diaphoresis, No fever; malaise, weakness EENTM: other (sore throat); No ear discharge, No hearing loss, No ear pain Respiratory: No cough, No short of breath, No stridor, No wheezing Cardiovascular: No chest pain, No edema Gastrointestinal: No abdominal pain, No constipation Genitourinary: No discharge, No dysuria Musculoskeletal: back pain; No joint pain; muscle pain Past Dxiotnh-Ieuxuv-Dqyogg Hx Patient Social History Alcohol Use: Rarely Uses Alcohol Beverage of Choice: Beer Recreational Drug Use: Yes Drug of Choice: HX: MJ Smoking Status: Current Everyday Smoker Type Used: Cigarettes (1.5 ppd) Recent Foreign Travel: No Contact w/Someone Who Travel: No Immunizations Up To Date Tetanus Booster (TDap): Less than 5yrs Date of Influenza Vaccine: Aug 02, 2012 Past Medical History Abdominal, Section, Ear Surgery, Oophorectomy Reproductive Disorders: Yes (ECTOPIC X2) Female Reproductive Disorders: Denies Sexually Transmitted Disease: No HIV/AIDS: No Gastroesophageal Reflux Bipolar Psoriasis Physical Exam Vital Signs Vital Signs - First Documented 04/29/18 18:19 Temp 97.9 Pulse 92 Resp 20 B/P (MAP) 124/76 (92) Pulse Ox 99 O2 Delivery Room Air Capillary Refill : Height, Weight, BMI Height: 5'7.00" Weight: 153lbs. 0.0oz. 69.096240az; 24.0 BMI Method:Stated General Appearance: No Apparent Distress, WD/WN Eyes: Bilateral Eye Normal Inspection, Bilateral Eye PERRL, Bilateral Eye EOMI HEENT: PERRL/EOMI, TMs Normal, Moist Mucous Membranes, Pharyngeal Erythema, Tonsillar Enlargement Neck: Full Range of Motion, Normal Inspection, Non Tender, Supple Respiratory: Chest Non Tender, Lungs Clear, Normal Breath Sounds, No Accessory Muscle Use, No Respiratory Distress Cardiovascular: Regular Rate, Rhythm, No Edema, Normal Peripheral Pulses Gastrointestinal: Normal Bowel Sounds, Non Tender, Soft Extremity: Normal Capillary Refill, Normal Inspection Neurologic/Psychiatric: Alert, Oriented x3, No Motor/Sensory Deficits, Normal Mood/Affect, note teller II-XII Norm as Tested Skin: Normal Color, Warm/Dry, Other (recent metered diameter area of alopecia with some fine scaling on the left parietal scalp) Progress/Results/Core Measures Suspected Sepsis SIRS Temperature: Pulse: Respiratory Rate: Laboratory Tests 04/29/18 18:31: White Blood Count 5.6 Blood Pressure / Mean: Laboratory Tests 04/29/18 18:31: Platelet Count 209 04/29/18 18:54: Creatinine 0.77, Total Bilirubin 0.3 Results/Orders Lab Results Laboratory Tests Test 04/29/18 18:31 04/29/18 18:33 04/29/18 18:41 04/29/18 18:53 Range/Units White Blood Count 5.6 4.3-11.0 10^3/uL Red Blood Count 3.60 L 4.35-5.85 10^6/uL Hemoglobin 11.8 11.5-16.0 G/DL Hematocrit 34 L 35-52 % Mean Corpuscular Volume 94 80-99 FL Mean Corpuscular Hemoglobin 33 25-34 PG Mean Corpuscular Hemoglobin Concent 35 32-36 G/DL Red Cell Distribution Width 12.8 10.0-14.5 % Platelet Count 209 130-400 10^3/uL Mean Platelet Volume 10.3 7.4-10.4 FL Neutrophils (%) (Auto) 77 H 42-75 % Lymphocytes (%) (Auto) 15 12-44 % Monocytes (%) (Auto) 7 0-12 % Eosinophils (%) (Auto) 1 0-10 % Basophils (%) (Auto) 0 0-10 % Neutrophils # (Auto) 4.3 1.8-7.8 X 10^3 Lymphocytes # (Auto) 0.9 L 1.0-4.0 X 10^3 Monocytes # (Auto) 0.4 0.0-1.0 X 10^3 Eosinophils # (Auto) 0.0 0.0-0.3 10^3/uL Basophils # (Auto) 0.0 0.0-0.1 10^3/uL Group A Streptococcus Screen NEGATIVE NEGATIVE Monoscreen NEGATIVE NEGATIVE Glucometer 86 70-110 MG/DL Test 04/29/18 18:54 Range/Units Sodium Level 139 135-145 MMOL/L Potassium Level 4.1 3.6-5.0 MMOL/L Chloride Level 105 98-107 MMOL/L Carbon Dioxide Level 27 21-32 MMOL/L Anion Gap 7 5-14 MMOL/L Blood Urea Nitrogen 8 7-18 MG/DL Creatinine 0.77 0.60-1.30 MG/DL Estimat Glomerular Filtration Rate > 60 BUN/Creatinine Ratio 10 Glucose Level 91 70-105 MG/DL Calcium Level 8.9 8.5-10.1 MG/DL Magnesium Level 1.9 1.8-2.4 MG/DL Total Bilirubin 0.3 0.1-1.0 MG/DL Aspartate Amino Transf (AST/SGOT) 19 5-34 U/L Alanine Aminotransferase (ALT/SGPT) 13 0-55 U/L Alkaline Phosphatase 78 40-136 U/L Total Creatine Kinase 57 29-168 U/L C-Reactive Protein High Sensitivity 0.12 0.00-0.50 MG/DL Total Protein 6.9 6.4-8.2 GM/DL Albumin 4.2 3.2-4.5 GM/DL Thyroid Stimulating Hormone (TSH) 0.32 L 0.35-4.94 UIU/ML My Orders Orders - SHERLEY PATRICK Cbc With Automated Diff (04/29/18 18:29) Comprehensive Metabolic Panel (04/29/18 18:29) Creatine Kinase (04/29/18 18:29) Hs C Reactive Protein (04/29/18 18:29) Magnesium (04/29/18 18:29) Monotest (04/29/18 18:29) Rapid Strep A Screen (04/29/18 18:29) Thyroid Stimulating Hormone (04/29/18 18:29) Accucheck Stat ONCE (04/29/18 18:29) Dora Prep (04/29/18 18:29) Ondansetron Oral Dissolve Tab (Zofran (04/29/18 19:00) Anti Nuclear Antibody Screen (04/29/18 20:15) Erythrocyte Sedimentation Rate (04/29/18 20:15) Medications Given in ED Current Medications Medications Dose Ordered Sig/Marlen Route Start Time Stop Time Status Last Admin Dose Admin Ondansetron HCl 4 mg ONCE ONCE PO 04/29/18 19:00 04/29/18 19:02 DC 04/29/18 19:00 4 MG Vital Signs/I&O 04/29/18 18:19 Temp 97.9 Pulse 92 Resp 20 B/P (MAP) 124/76 (92) Pulse Ox 99 O2 Delivery Room Air Capillary Refill : Progress Note #1: Time: 18:39 Progress Note Vague nonspecific, nonfocal signs that may be consistent with a viral illness or streptococcal pharyngitis. We'll check CBC she has a history of anemia as well as TSH, CPK, CRP. She is declining urinalysis at this time. We'll also do a DORA prep of the alopecia patch looking for fungal elements on her scalp. Accu check x1 Progress Note #2: Time: 19:19 Progress Note Skin scraping DORA prep does not show any fungal elements periods possible she could have discoid lupus with alopecia as well as this could explain some of her symptoms of malaise and fatigue. She does not have a history of SLE and row and SSA antibodies are all send out tests. We'll discuss whether she wants us to order these and have her follow-up with her primary care doctor outpatient. Currently she does not seem to be having any acute source for her myalgias, fatigue or alopecia. Progress Note #3: Time: : Progress Note We discussed with the patient the possibility of hyperthyroidism or subclinical hyperthyroidism and that more blood testing would be needed to differentiate. He also discussed the possibility of lupus. She has family history of lupus and the discoid alopecia could be a presentation. We discussed further lab testing and she agrees to do this but she will follow-up with the results at her clinic appointment on the with her primary care provider. We will also give her some ondansetron for outpatient. We have encouraged her to use anti- inflammatory medicine such as NSAIDs. We will check a anti-neutrophil antibody, ESR in addition to the CRP and a free T4, T3 total and allow the patient to discharge home. Departure Impression Primary Impression: Alopecia Additional Impression: Hyperthyroidism Disposition: 01 HOME, SELF-CARE Condition: Stable Departure-Patient Inst. Decision time for Depature: 20:22 Referrals: [facility] (PCP) Primary Care Physician TOAM HARLEY (Family) Primary Care Physician Patient Instructions: Hyperthyroidism (Overactive Thyroid) (DC) Add. Discharge Instructions: Some other laboratory tests have been sent out and will be available by the time he follow up with your primary care doctor on May. If you have nausea you can take one tablet of the Zofran by mouth every 6 hours as needed. If you're having body aches, headache etc. he should start with an NSAID such as Naprosyn, naproxen, ibuprofen, Motrin, or Aleve followed by 1000 mg Tylenol every 8 hours if this is not working for your body aches. Scripts Ondansetron (Ondansetron Odt) 4 Mg Tab.rapdis 4 MG PO Q6H PRN for NAUSEA/VOMITING, #8 TAB 0 Refills Prov: SHERLEY PATRICK 04/29/18 Work/School Note: Work Release Form Date Seen in the Emergency Department: Apr 29, 2018 Return to Work: May 01, 2018 Restrictions: No Restrictions Copy Copies To 1: ALEXIS MILNER TITUS J Apr 29, 2018 18:38
[2018-04-29 18:49] LABS: BASOPHILS % (AUTO) 0 % (0-10); EOSINOPHILS % (AUTO) 1 % (0-10); HEMATOCRIT 34 % (35-52); HEMOGLOBIN 11.8 G/DL (11.5-16.0); LYMPHOCYTES # (AUTO) 0.9 X 10^3 (1.0-4.0); LYMPHOCYTES % (AUTO) 15 % (12-44); MEAN CORPUSCULAR HEMOGLOBIN 33 PG (25-34); MEAN CORPUSCULAR HGB CONC 35 G/DL (32-36); MEAN CORPUSCULAR VOLUME 94 FL (80-99); MEAN PLATELET VOLUME 10.3 FL (7.4-10.4); MONOCYTES # (AUTO) 0.4 X 10^3 (0.0-1.0); MONOCYTES % (AUTO) 7 % (0-12); NEUTROPHILS # (AUTO) 4.3 X 10^3 (1.8-7.8); NEUTROPHILS % (AUTO) 77 % (42-75); PLATELET COUNT 209 10^3/uL (130-400); RED CELL DISTRIBUTION WIDTH 12.8 % (10.0-14.5); WHITE BLOOD COUNT 5.6 10^3/uL (4.3-11.0)
[2018-04-29] MEDS ORDERED: ONDANSETRON 4 MG (ZOFRAN) ORAL DISSOLVE TAB PO ONE (19:00)
[2018-04-29 19:23] LABS: ALANINE AMINOTRANSFERASE 13 U/L (0-55); ALBUMIN 4.2 GM/DL (3.2-4.5); ALKALINE PHOSPHATASE 78 U/L (40-136); BILIRUBIN,TOTAL 0.3 MG/DL (0.1-1.0); BUN/CREATININE RATIO 10; CALCIUM 8.9 MG/DL (8.5-10.1); CARBON DIOXIDE 27 MMOL/L (21-32); CHLORIDE 105 MMOL/L (98-107); CREATINE KINASE 57 U/L (29-168); CREATININE SERUM 0.77 MG/DL (0.60-1.30); GFR ESTIMATED > 60; GLUCOSE 91 MG/DL (70-105); MAGNESIUM 1.9 MG/DL (1.8-2.4); POTASSIUM 4.1 MMOL/L (3.6-5.0); SODIUM 139 MMOL/L (135-145); TOTAL PROTEIN 6.9 GM/DL (6.4-8.2)
[2018-04-29] MEDS ORDERED: ONDA4TAB11 PO (20:24)
[2018-04-29] MEDS ORDERED: RX-ONDANSETRON 4 MG ODT (ZOFRAN) PPK #4 PO STA (20:25)
[2018-04-29 20:37] VITALS: BP 124/76
== END 2018-04-29 20:37 | disposition home or self-care (01) ==
LOC: EDUNIT# 18:14 → ER 18:16
DX: L65.9 Nonscarring hair loss, unspecified (principal); E05.90 Thyrotoxicosis, unspecified without thyrotoxic crisis or storm; K21.9 Gastro-esophageal reflux disease without esophagitis; F31.9 Bipolar disorder, unspecified; F17.210 Nicotine dependence, cigarettes, uncomplicated; Z87.59 Personal history of other complications of pregnancy, childbirth and the puerperium; Z88.8 Allergy status to other drugs, medicaments and biological substances; Z88.5 Allergy status to narcotic agent; Z79.02 Long term (current) use of antithrombotics/antiplatelets
CPT/HCPCS: 36415; 80053; 82550; 82962; 83735; 84439; 84443; 84480; 85025; 85652; 86038; 86141; 86308; 87220; 87430; 99283

== ENCOUNTER 2018-05-01 15:00 | Emergency (ER) | payer SELFPAY ==
[~2018-05-01] VITALS: Ht 170.2 cm; Wt 59.0 kg
[~2018-05-01 15:00] MED LIST changes: +ONDA4TAB11 PO
[2018-05-01] MEDS ORDERED: zofran (15:17)
[2018-05-01] MEDS ORDERED: ACETAMINOPHEN 500 MG TAB (TYLENOL) PO ONE (15:45)
[2018-05-01] MEDS ORDERED: NS IV 1000 ML 1,000 ML IV SCH (15:45)
[2018-05-01] MEDS ORDERED: ONDANSETRON 4 MG/2 ML (SDV) Z0FRAN IVP ONE (15:45)
[2018-05-01 16:05] LABS: BASOPHILS % (AUTO) 0 % (0-10); EOSINOPHILS % (AUTO) 0 % (0-10); HEMATOCRIT 36 % (35-52); HEMOGLOBIN 12.1 G/DL (11.5-16.0); LYMPHOCYTES % (AUTO) 20 % (12-44); MEAN CORPUSCULAR HEMOGLOBIN 31 PG (25-34); MEAN CORPUSCULAR HGB CONC 34 G/DL (32-36); MEAN CORPUSCULAR VOLUME 91 FL (80-99); MEAN PLATELET VOLUME 10.4 FL (7.4-10.4); MONOCYTES # (AUTO) 0.3 X 10^3 (0.0-1.0); MONOCYTES % (AUTO) 6 % (0-12); NEUTROPHILS # (AUTO) 3.9 X 10^3 (1.8-7.8); NEUTROPHILS % (AUTO) 74 % (42-75); PLATELET COUNT 192 10^3/uL (130-400); RED BLOOD COUNT 3.93 10^6/uL (4.35-5.85); RED CELL DISTRIBUTION WIDTH 12.8 % (10.0-14.5); WHITE BLOOD COUNT 5.2 10^3/uL (4.3-11.0)
[2018-05-01 16:24] LABS: ALANINE AMINOTRANSFERASE 17 U/L (0-55); ALBUMIN 3.9 GM/DL (3.2-4.5); ALKALINE PHOSPHATASE 76 U/L (40-136); AMYLASE 21 U/L (25-125); BILIRUBIN,TOTAL 0.2 MG/DL (0.1-1.0); BUN/CREATININE RATIO 10; CALCIUM 8.9 MG/DL (8.5-10.1); CARBON DIOXIDE 24 MMOL/L (21-32); CHLORIDE 102 MMOL/L (98-107); CREATININE SERUM 0.67 MG/DL (0.60-1.30); GFR ESTIMATED > 60; GLUCOSE 99 MG/DL (70-105); LIPASE 6 U/L (8-78); POTASSIUM 3.2 MMOL/L (3.6-5.0); SODIUM 135 MMOL/L (135-145); TOTAL PROTEIN 6.5 GM/DL (6.4-8.2)
[2018-05-01 17:11] LABS: BILIRUBIN,URINE NEGATIVE (NEGATIVE); CLARITY,URINE CLEAR; COLOR,URINE YELLOW; GLUCOSE, URINE (UA) NEGATIVE (NEGATIVE); KETONES,URINE NEGATIVE (NEGATIVE); LEUKOCYTE ESTERASE ,URINE NEGATIVE (NEGATIVE); NITRITE,URINE NEGATIVE (NEGATIVE); PH,URINE 6.5 (5-9); PROTEIN,URINE NEGATIVE (NEGATIVE); UROBILINOGEN,URINE NORMAL (NORMAL)
[2018-05-01 17:29] LABS: BACTERIA,URINE NEGATIVE /HPF; SQUAMOUS EPITHELIAL CELL,UR 0-2 /HPF; WBC,URINE RARE /HPF
[2018-05-01] MEDS ORDERED: KCL 20 MEQ TAB (K-DUR) PO ONE (17:30)
--- NOTE | 2018-05-01 17:48 | ED General ---
General Chief Complaint: General Problems/Pain Stated Complaint: HAIR LOSS;VOMITING;CHILLS Nursing Triage Note: TO ROOM REPORTS WAS SEEN IN ED ON MONDAY FOR BALD SPOT ON HEAD WITH BUMP. AND GENERAL PAIN. UNABLE TO TAKE ZOFRAN GIVEN FOR N/V. C/O TODAY VOMITING WITH GENERAL BODY ACHES. Nursing Sepsis Screen: Possible Sepsis Risk Source of Information: Patient, Family Exam Limitations: No Limitations History of Present Illness Date Seen by Provider: May 01, 2018 Time Seen by Provider: 15:28 Initial Comments Patient is a 37-year-old female who presents to the emergency room with generalized body aches, fever, nausea and vomiting. She reports that she was seen for similar complaints in the emergency room on 80 and given Zofran ODT for nausea and vomiting that has been unable to take those. She reports that she is also not taking anything for her fever. Timing/Duration: 2-3 Days Associated Systoms: Fever/Chills, Malaise, Nausea/Vomiting, Weakness Allergies and Home Medications Allergies Coded Allergies: acetaminophen (Verified Allergy, Unknown, 07/06/07) oxycodone (Verified Allergy, Unknown, 07/06/07) Home Medications Calcium Carbonate/Vitamin D3 1 Each Tablet, 1 EACH PO DAILY, (Reported) Ferrous Sulfate 325 Mg Tablet, 65 MG PO BID, (Reported) Ondansetron 4 Mg Tab.rapdis, 4 MG PO Q6H PRN for NAUSEA/VOMITING Prescribed by: SHERLEY PATRICK on 04/29/182023 Ondansetron 4 Mg Tab.rapdis, 4 MG SL Q4H PRN for NAUSEA/VOMITING-1ST LINE Prescribed by: KATERINA RAMON on 05/01/181813 Vits W-Ca,Fe,Fa(<1MG) 1 Each Tablet, 1 TAB PO DAILY, (Reported) Patient Home Medication List Home Medication List Reviewed: Yes Review of Systems Constitutional: see HPI, chills, fever, weakness Gastrointestinal: nausea, vomiting All Other Systems Reviewed Negative Unless Noted: Yes Past Vmwqjet-Yyqued-Yyoibw Hx Patient Social History Alcohol Use: Past History Number of Drinks Today: AA Alcohol Beverage of Choice: Beer Recreational Drug Use: No (CLEAN FOR 7 MOS) Drug of Choice: HX: MJ Smoking Status: Current Everyday Smoker Type Used: Cigarettes Recent Foreign Travel: No Contact w/Someone Who Travel: No Recent Infectious Disease Expo: No Immunizations Up To Date Tetanus Booster (TDap): Less than 5yrs Date of Influenza Vaccine: Aug 02, 2012 Past Medical History Surgeries: Yes (C/S X3, INCISIONAL HERNIA REPAIR X4, DXLS, TUBES IN EARS, RSO) Abdominal, Section, Ear Surgery, Oophorectomy, Tubal Ligation Respiratory: No Cardiac: No Neurological: No Reproductive Disorders: Yes (ECTOPIC X2) Female Reproductive Disorders: Denies 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 0.0oz. 58.865617cn; 24.0 BMI Method:Stated General Appearance: No Apparent Distress, WD/WN, Other (she reports generalized body aches.) Respiratory: Chest Non Tender, Lungs Clear, Normal Breath Sounds, No Accessory Muscle Use, No Respiratory Distress Cardiovascular: Regular Rate, Rhythm, No Edema, No Gallop, No JVD, No Murmur, Normal Peripheral Pulses Neurologic/Psychiatric: Alert, Oriented x3, Normal Mood/Affect Skin: Normal Color, Warm/Dry Lymphatic: No Adenopathy Progress/Results/Core Measures Suspected Sepsis Recent Fever Within 48 Hours: No Infection Criteria Present: Documented Infection New/Unexplained Altered Menta: No Sepsis Screen: Possible Sepsis Risk SIRS Temperature:101.0 Pulse: 97 Respiratory Rate: 18 Blood Pressure 113 /81 Mean: 92 Results/Orders Lab Results My Orders Medications Given in ED Vital Signs/I&O Capillary Refill : Less Than 3 Seconds Blood Pressure Mean: 92 Progress Note : Time: 17:31 Progress Note Patient's temperature is 98.8 at this time. She reports that her aches and pains are gone. She was able to keep down the medication. The patient potassium was low, she will be given 40 mg by mouth prior to discharge. She agrees with plan for discharge and close follow-up to her primary care physician return precautions were given. Departure Impression Primary Impression: Nausea & vomiting Additional Impressions: Fever Viral illness Disposition: 01 HOME, SELF-CARE Condition: Stable/Unchanged Departure-Patient Inst. Decision time for Depature: 18:11 Referrals: [facility] (PCP) Primary Care Physician TOMA HARLEY (Family) Primary Care Physician Patient Instructions: Fever, Adult (DC), Nausea and Vomiting, Adult (DC), VIRAL SYNDROME Add. Discharge Instructions: Take medications as previously prescribed. Be sure you fill your prescription for the Zofran. Drink plenty of fluids like water. You may use ibuprofen and Tylenol as directed by the bottle for pain and fever. Follow up with your doctor within 1 week for recheck, call tomorrow morning for an appointment time. Return back to the emergency room for any worsening symptoms or any other concerns as needed. All discharge instructions reviewed with patient and/or family. Voiced understanding. Scripts Ondansetron (Zofran Odt) 4 Mg Tab.rapdis 4 MG SL Q4H PRN for NAUSEA/VOMITING-1ST LINE, #14 TAB Prov: KATERINA RAMON 05/01/18 KATERINA RAMON May 01, 2018 17:48
[2018-05-01] MEDS ORDERED: ONDA4TAB8 SL (18:14)
[2018-05-01 18:31] VITALS: BP 114/73
== END 2018-05-01 18:31 | disposition home or self-care (01) ==
LOC: EDUNIT# 15:00 → ER 15:02
DX: B34.9 Viral infection, unspecified (principal); R11.2 Nausea with vomiting, unspecified; K21.9 Gastro-esophageal reflux disease without esophagitis; F31.9 Bipolar disorder, unspecified; F17.210 Nicotine dependence, cigarettes, uncomplicated; Z88.6 Allergy status to analgesic agent; Z98.51 Tubal ligation status; Z87.59 Personal history of other complications of pregnancy, childbirth and the puerperium
CPT/HCPCS: 36415; 80053; 81000; 82150; 83690; 84443; 85025; 96361; 96374

== ENCOUNTER 2020-03-06 04:04 | Emergency (ER) | payer SELFPAY ==
[~2020-03-06] VITALS: Ht 170 cm; Wt 67.0 kg
[~2020-03-06 04:04] MED LIST changes: +ONDA4TAB8 SL; +zofran
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
--- OUTSIDE RECORDS SUMMARY | 2020-03-06 04:15 | XMS REPORT ---
Author Author Angelica Medina Doctor Organization [facility] Address Unknown Phone Unavailable Care Team Providers Care Retail Buyer Name Role Phone Migration, Doctor Unavailable Unavailable PROBLEMS Type Condition ICD9-CM Code DAS49-CS Code Onset Dates Condition S tatus SNOMED Code Problem Other chronic pain G89.29 Active 8 7775648 Problem Bipolar disorder, curr episode mixed, severe, w/ o psychotic features F31.63 Active 37373409 Problem Posttraumatic stress disorder 309.81 Active 01300808 Problem Urge incontinence N39.41 Active 87 773652 ALLERGIES No Information ENCOUNTERS Encounter Location Date Diagnosis [place] [address] [address] Nov, High risk medications (not a nticoagulants) long-term use Z79.899 and Bipolar disorder, curr episode mixed, severe, w/o psychotic features F31.63 [place] [address] [address] [place] [id number] [place] [address] Nov, Bipolar disorder, curr episo de mixed, severe, w/o psychotic features F31.63 ; High risk medications (not anticoagulants) long-term use Z79.899 and Screening for diabetes mellitus Z13.1 [place] [address] [place] [id number] [address] [place] [address] Nov, Low back pain M54.5 [place] [address] [address] [place] [id number] [address] [place] [address] Nov, Screening for diabetes melli tus Z13.1 ; Low back pain M54.5 ; Other chronic pain G89.29 ; Screening for lipid disorders Z13.220 ; Thinning hair L65.9 ; Urge incontinence N39.41 ; Fatigue, unspecified type R53.83 ; High risk medications (not anticoagulants) long-term use Z79.899 and Bipolar disorder, curr episode mixed, severe, w/o psychotic features F31.63 [facility] [address] [facility] [id number] [address] [place] [address] Oct, Screening for diabetes melli tus Z13.1 ; Low back pain M54.5 ; Other chronic pain G89.29 ; Screening for lipid disorders Z13.220 ; Thinning hair L65.9 ; Urge incontinence N39.41 ; Fatigue, unspecified type R53.83 ; Bipolar disorder, curr episode mixed, severe, w/o psychotic features F31.63 and High risk medications (not anticoagulants) long-term use Z79.899 [facility] [address] [facility] [id number] [address] [place] [address] Oct, [place] [address] [address] [place] [id number] [address] [place] [address] Oct, Bipolar disorder, curr episo de mixed, severe, w/o psychotic features F31.63 and High risk medications (not anticoagulants) long-term use Z79.899 [facility] [address] [place] [id number] [address] [place] [address] Oct, Laceration of floor of mouth , initial encounter S01.512A [facility] [address], [place] [id number] 57 Oct, Laceration of floor of mouth, initial encounter S01.512A [facility] [address] [place] [id number] [address] [place] [address] Dec, [facility] [address] [facility] [id number] [address] [place] [address] Dec, [place] [address] [address] [place] [id number] [address] [place] [address] May, [facility] [address] [place] [id number] [address] [place] [address] May, [facility] [address] [place] [id number] [address] [place] [address] Mar, [facility] [address] [place] [id number] [address] [place] [address] January, [facility] [address] [id number] [address] [place] [address], [place] [address] January, [facility] [address] [id number] [address] [place] [address], [place] [address] January, [facility] [address] [id number] [address] [place] [address], [place] [address] January, [facility] [address] [id number] [address] [place] [address], [place] [address] Dec, [facility] [address] [id number] [address] [place] [address], [place] [address] Nov, [facility] [address] [id number] [address] [place] [address], [place] [address] Nov, [facility] [address] [id number] [address] [place] [address], [place] [address] Nov, [facility] [address] [id number] [address] [place] [address], [place] [address] Nov, [facility] [address] [id number] [address] [place] [address], [place] [address] Oct, [facility] [address] [id number] [address] [place] [address], [place] [address] Oct, [facility] [address] [id number] [address] [place] [address], [place] [address] Oct, [facility] [address] [id number] [address] [place] [address], [place] [address] Oct, [facility] [address] [id number] [address] [place] [address], [place] [address] 15 Oct, 2012 [facility] [address] [id number] [address] [place] [address], [place] [address] 14 Oct, 2012 [facility] [address] [id number] [address] [place] [address], [place] [address] Oct, [facility] [address] [id number] [address] [place] [address], [place] [address] 19 Sep, 2012 [facility] [address] [id number] [address] [place] [address], [place] [address] 18 Sep, 2012 [facility] [address] [id number] [address] [place] [address], [place] [address] 17 Sep, 2012 [facility] [address] [id number] [address] [place] [address], [place] [address] 17 Sep, 2012 [facility] [address] [id number] [address] [place] [address], [place] [address] 16 Sep, 2012 [facility] [address] [id number] [address] [place] [address], [place] [address] 15 Sep, 2012 [facility] [address] [id number] [address] [place] [address], [place] [address] 14 Sep, 2012 [facility] [address] [id number] [address] [place] [address], [place] [address] 14 Sep, 2012 [facility] [address] [id number] [address] [place] [address], [place] [address] 13 Sep, 2012 [facility] [address] [id number] [address] [place] [address], [place] [address] 13 Sep, 2012 [facility] [address] [id number] [address] [place] [address], [place] [address] 28 Aug, 2012 [facility] [address] [id number] [address] [place] [address], [place] [address] 28 Aug, 2012 [facility] [address] [id number] [address] [place] [address], [place] [address] 20 Aug, 2012 [facility] [address] [id number] [address] [place] [address], [place] [address] 20 Aug, 2012 [facility] [address] [id number] [address] [place] [address], [place] [address] 19 Aug, 2012 [facility] [address] [id number] [address] [place] [address], [place] [address] Aug, [facility] [address] [id number] [address] [place] [address] Aug, [facility] [address] [id number] [address] [place] [address] Nov, [facility] [address] [id number] [address] [place] [address] Oct, [facility] [address] [id number] [address] [place] [address] Oct, [facility] [address] [id number] [address] [place] [address] Sep, [facility] [address] [id number] [address] [place] [address] Sep, [facility] [address] [id number] [address] [place] [address] Sep, [facility] [address] [id number] [address] [place] [address] Sep, [facility] [address] [id number] [address] [place] [address] Sep, [facility] [address] [id number] [address] [place] [address] Sep, [facility] [address] [id number] [address] [place] [address] Sep, IMMUNIZATIONS No Known Immunizations SOCIAL HISTORY Never Assessed REASON FOR VISIT [facility] [place]AN OF CARE VITAL SIGNS MEDICATIONS Unknown Medications RESULTS No Results PROCEDURES No Known procedures INSTRUCTIONS MEDICATIONS ADMINISTERED No Known Medications MEDICAL (GENERAL) HISTORY Type Description Date Medical History bipolar Medical History no hx of seizures Surgical History c-sections Hospitalization History x 6 Hospitalization History inpatient psychiatric age 19 dx bipo lar
--- OUTSIDE RECORDS SUMMARY | 2020-03-06 04:15 | XMS REPORT | Continuity of Care Document ---
Author Author Angelica CANO Organization [facility] Address Unknown Phone Unavailable Care Team Providers Care Manager Commercial Real Estate Name Role Phone [facility] Unavailable Unavailable Problems No Data Provided for This Section Medications No Data Provided for This Section Allergies, Adverse Reactions, Alerts No Known Medication Allergies Immunizations No Data Provided for This Section Results No Data Provided for This Section Vital Signs No Data Provided for This Section Encounters No Data Provided for This Section Procedures No Data Provided for This Section Social History Combined list of available smoking, tobacco, and other social history on record at Department of Defense and/or Veterans Affairs facilities. The included entrie s comply with the patient's data sharing authorizations. Social History Type Response Date Comment Source This section is an empty social history section. DoD Assessment and Plan No Data Provided for This Section Plan of Care No Data Provided for This Section Family History No Data Provided for This Section Advance Directives No Data Provided for This Section Functional Status No Data Provided for This Section
--- OUTSIDE RECORDS SUMMARY | 2020-03-06 04:15 | XMS REPORT ---
Author Author Angelica Medina Doctor Organization [facility] Address Unknown Phone Unavailable Care Team Providers Care Veneer Glue Jointer Feedback Name Role Phone Migration, Doctor Unavailable Unavailable PROBLEMS Type Condition ICD9-CM Code EBN01-KA Code Onset Dates Condition S tatus SNOMED Code Problem Other chronic pain G89.29 Active 8 0995168 Problem Bipolar disorder, curr episode mixed, severe, w/ o psychotic features F31.63 Active 42906804 Problem Posttraumatic stress disorder 309.81 Active 69195493 Problem Urge incontinence N39.41 Active 87 595109 ALLERGIES No Information ENCOUNTERS Encounter Location Date Diagnosis [place] [address] [address] [place] [id number] [place] [address] Nov, High risk medications (not a nticoagulants) long-term use Z79.899 and Bipolar disorder, curr episode mixed, severe, w/o psychotic features F31.63 [place] [address] [address] [place] [id number] [place] [address] Nov, Bipolar disorder, curr episo de mixed, severe, w/o psychotic features F31.63 ; High risk medications (not anticoagulants) long-term use Z79.899 and Screening for diabetes mellitus Z13.1 [place] [address] [address] [place] [id number] [place] [address] Nov, Low back pain M54.5 [place] [address] [address] [place] [id number] [place] [address] Nov, Screening for diabetes melli tus Z13.1 ; Low back pain M54.5 ; Other chronic pain G89.29 ; Screening for lipid disorders Z13.220 ; Thinning hair L65.9 ; Urge incontinence N39.41 ; Fatigue, unspecified type R53.83 ; High risk medications (not anticoagulants) long-term use Z79.899 and Bipolar disorder, curr episode mixed, severe, w/o psychotic features F31.63 [facility] [address] [facility] [id number] [address] [place] [address] Oct, Screening for diabetes melli tus Z13.1 ; Low back pain M54.5 ; Other chronic pain G89.29 ; Screening for lipid disorders Z13.220 ; Thinning hair L65.9 ; Urge incontinence N39.41 ; Fatigue, unspecified type R53.83 ; Bipolar disorder, curr episode mixed, severe, w/o psychotic features F31.63 and High risk medications (not anticoagulants) long-term use Z79.899 [facility] [address] [facility] [id number] [address] [place] [address] Oct, [place] [id number] [place] [id number] [address] [place] [address] Oct, Bipolar disorder, curr episo de mixed, severe, w/o psychotic features F31.63 and High risk medications (not anticoagulants) long-term use Z79.899 [facility] [address] [facility] [id number] [address] [place] [address] Oct, Laceration of floor of mouth , initial encounter S01.512A [facility] [address] [place], [place] [id number] 57 Oct, Laceration of floor of mouth, initial encounter S01.512A [facility] [address] [facility] [id number] [address] [place] [address] Dec, [facility] [address] [facility] [id number] [address] [place] [address] Dec, [facility] [address] [facility] [id number] [address] [place] [address] May, [facility] [address] [facility] [id number] [address] [place] [address] May, [facility] [address] [facility] [id number] [address] [place] [address] Mar, [facility] [address] [facility] [id number] [address] [place] [address] January, [facility] [address] [id number] [address] [place] [address], [place] [address] January, [facility] [address] [id number] [address] [place] [address], [place] [address] January, [facility] [address] [id number] [address] [place] [address], [place] [address] January, [facility] [address] [id number] [address] [place] [address], [place] [address] Dec, [facility] [address] [id number] [address] [place] [address], [place] [address] Nov, [facility] [address] [id number] [address] [place] [address], [place] [address] Nov, [facility] [address] [id number] [address] [place] [address], [place] [address] Nov, [facility] [address] [id number] [address] [place] [address], [place] [address] Nov, [facility] [address] [id number] [address] [place] [address], [place] [address] Oct, [facility] [address] [id number] [address] [place] [address], [place] [address] Oct, [facility] [address] [id number] [address] [place] [address], [place] [address] Oct, [facility] [address] [id number] [address] [place] [address], [place] [address] Oct, [facility] [address] [id number] [address] [place] [address], [place] [address] Oct, [facility] [address] [id number] [address] [place] [address], [place] [address] 14 Oct, 2012 [facility] [address] [id number] [address] [place] [address], [place] [address] Oct, [facility] [address] [id number] [address] [place] [address], [place] [address] 19 Sep, 2012 [facility] [address] [id number] [address] [place] [address], [place] [address] 18 Sep, 2012 [facility] [address] [id number] [address] [place] [address], [place] [address] 17 Sep, 2012 [facility] [address] [id number] [address] [place] [address], [place] [address] 17 Sep, 2012 [facility] [address] [id number] [address] [place] [address], [place] [address] 16 Sep, 2012 [facility] [address] [id number] [address] [place] [address], [place] [address] 15 Sep, 2012 [facility] [address] [id number] [address] [place] [address], [place] [address] 14 Sep, 2012 [facility] [address] [id number] [address] [place] [address], [place] [address] 14 Sep, 2012 [facility] [address] [id number] [address] [place] [address], [place] [address] 13 Sep, 2012 [facility] [address] [id number] [address] [place] [address], [place] [address] 13 Sep, 2012 [facility] [address] [id number] [address] [place] [address], [place] [address] 28 Aug, 2012 [facility] [address] [id number] [address] [place] [address], [place] [address] 28 Aug, 2012 [facility] [address] [id number] [address] [place] [address], [place] [address] 20 Aug, 2012 [facility] [address] [id number] [address] [place] [address], [place] [address] 20 Aug, 2012 [facility] [address] [id number] [address] [place] [address], [place] [address] 19 Aug, 2012 [facility] [address] [id number] [address] [place] [address], [place] [address] Aug, [facility] [address] [id number] [address] [place] [address] Aug, [facility] [address] [id number] [address] [place] [address] Nov, [facility] [address] [id number] [address] [place] [address] Oct, [facility] [address] [id number] [address] [place] [address] Oct, [facility] [address] [id number] [address] [place] [address] Sep, [facility] [address] [id number] [address] [place] [address] Sep, [facility] [address] [id number] [address] [place] [address] Sep, [facility] [address] [id number] [address] [place] [address] Sep, [facility] [address] [id number] [address] [place] [address] Sep, [facility] [address] [id number] [address] [place] [address] Sep, [facility] [address] [id number] [address] [place] [address] Sep, IMMUNIZATIONS No Known Immunizations SOCIAL HISTORY Never Assessed REASON FOR VISIT [facility] [place] PLAN OF CARE VITAL SIGNS MEDICATIONS Unknown Medications RESULTS No Results PROCEDURES No Known procedures INSTRUCTIONS MEDICATIONS ADMINISTERED No Known Medications MEDICAL (GENERAL) HISTORY Type Description Date Medical History bipolar Medical History no hx of seizures Surgical History c-sections Hospitalization History x 6 Hospitalization History inpatient psychiatric age 19 dx bipo lar
--- OUTSIDE RECORDS SUMMARY | 2020-03-06 04:15 | XMS REPORT ---
Author Author Angelica Medina Doctor Organization [facility] Address Unknown Phone Unavailable Care Team Providers Care Netsuite Developer Name Role Phone Migration, Doctor Unavailable Unavailable PROBLEMS Type Condition ICD9-CM Code [id number] Code Onset Dates Condition S tatus SNOMED Code Problem Other chronic pain G89.29 Active 8 2912662 Problem Bipolar disorder, curr episode mixed, severe, w/ o psychotic features F31.63 Active 93164529 Problem Posttraumatic stress disorder 309.81 Active 84396009 Problem Urge incontinence N39.41 Active 87 043494 ALLERGIES No Information ENCOUNTERS Encounter Location Date Diagnosis [place] [address] [place] [id number] [place] [phone] Mar, [place] [address] [place] [id number] [place] [phone] January, [place] [address] [place] [id number] [place] [address] January, [place] [address] [place] [id number] [place] [address] January, Bipolar disorder, curr episo de mixed, severe, w/o psychotic features F31.63 [place] [address] [place] [id number] [address] [place] [phone] Nov, Bipolar disorder, curr episo de mixed, severe, w/o psychotic features F31.63 [place] [address] [place] [id number] [address] [place] [address] Nov, High risk medications (not a nticoagulants) long-term use Z79.899 and Bipolar disorder, curr episode mixed, severe, w/o psychotic features F31.63 [place] [address] [place] [id number] [address] [place] [phone] Nov, Bipolar disorder, curr episo de mixed, severe, w/o psychotic features F31.63 ; High risk medications (not anticoagulants) long-term use Z79.899 and Screening for diabetes mellitus Z13.1 [place] [id number] [place] [address] Nov, Low back pain M54.5 [place] [address] [place] [id number] [address] [place] [address] Nov, Screening for diabetes melli tus Z13.1 ; Low back pain M54.5 ; Other chronic pain G89.29 ; Screening for lipid disorders Z13.220 ; Thinning hair L65.9 ; Urge incontinence N39.41 ; Fatigue, unspecified type R53.83 ; High risk medications (not anticoagulants) long-term use Z79.899 and Bipolar disorder, curr episode mixed, severe, w/o psychotic features F31.63 [place] [address] [place] [address] Oct, Screening for diabetes melli tus Z13.1 ; Low back pain M54.5 ; Other chronic pain G89.29 ; Screening for lipid disorders Z13.220 ; Thinning hair L65.9 ; Urge incontinence N39.41 ; Fatigue, unspecified type R53.83 ; Bipolar disorder, curr episode mixed, severe, w/o psychotic features F31.63 and High risk medications (not anticoagulants) long-term use Z79.899 [place] [address] [place] [id number] [address] [place] [address] Oct, [place] [address] [place] [id number] [address] [place] [address] Oct, Bipolar disorder, curr episo de mixed, severe, w/o psychotic features F31.63 and High risk medications (not anticoagulants) long-term use Z79.899 [place] [address] [place] [id number] [address] [place] [address] Oct, Laceration of floor of mouth , initial encounter S01.512A [facility] [address] [place], [place] [id number] 57 Oct, Laceration of floor of mouth, initial encounter S01.512A [facility] [address] [id number] [address] [place] [address], [place] [address] Dec, [facility] [address] [id number] [address] [place] [address], [place] [address] Dec, [facility] [address] [id number] [address] [place] [address], [place] [address] May, [facility] [address] [id number] [address] [place] [address], [place] [address] May, [facility] [address] [id number] [address] [place] [address], [place] [address] Mar, [facility] [address] [id number] [address] [place] [address], [place] [address] January, [facility] [address] [id number] [address] [place] [address], [place] [address] January, [facility] [address] [id number] [address] [place] [address], [place] [address] January, [facility] [address] [id number] [address] [place] [address], [place] [address] January, [facility] [address] [id number] [address] [place] [address], [place] [address] Dec, [facility] [address] [id number] [address] [place] [address], [place] [address] Nov, [facility] [address] [id number] [address] [place] [phone] Nov, [facility] [address] [id number] [address] [place] [address] Nov, [facility] [address] [id number] [address] [place] [phone] Nov, [facility] [address] [id number] [address] [place] [phone] Oct, [facility] [address] [id number] [address] [place] [address], [place] [address] Oct, [facility] [address] [id number] [address] [place] [address], [place] [address] Oct, [facility] [address] [id number] [address] [place] [address], [place] [address] 16 Oct, 2012 [facility] [address] [id number] [address] [place] [address], [place] [address] 15 Oct, 2012 [facility] [address] [id number] [address] [place] [address], [place] [address] 14 Oct, 2012 [facility] [address] [id number] [address] [place] [address], [place] [address] 08 Oct, 2012 [facility] [address] [id number] [address] [place] [address], [place] [address] 19 Sep, 2012 [facility] [address] [id number] [address] [place] [address], [place] [address] 18 Sep, 2012 [facility] [address] [id number] [address] [place] [address], [place] [address] 17 Sep, 2012 [facility] [address] [id number] [address] [place] [address], [place] [address] 17 Sep, 2012 [facility] [address] [id number] [address] [place] [address], [place] [address] 16 Sep, 2012 [facility] [address] [id number] [address] [place] [address], [place] [address] 15 Sep, 2012 [facility] [address] [id number] [address] [place] [address], [place] [address] 14 Sep, 2012 [facility] [address] [id number] [address] [place] [address], [place] [address] 14 Sep, 2012 [facility] [address] [id number] [address] [place] [address], [place] [address] 13 Sep, 2012 [facility] [address] [id number] [address] [place] [address], [place] [address] Sep, [facility] [address] [id number] [address] [place] [address], [place] [address] Aug, [facility] [address] [id number] [address] [place] [address], [place] [address] Aug, [facility] [address] [id number] [address] [place] [address], [place] [address] Aug, [facility] [address] [id number] [address] [place] [address], [place] [address] Aug, [facility] [address] [id number] [address] [place] [address], [place] [address] Aug, [facility] [address] [id number] [address] [place] [address], [place] [address] Aug, [facility] [address] [id number] [address] [place] [address], [place] [address] Aug, [facility] [address] [id number] [address] [place] [address], [place] [address] Nov, [facility] [address] [id number] [address] [place] [address], [place] [address] Oct, [facility] [address] [id number] [address] [place] [address], [place] [address] Oct, [facility] [address] [id number] [address] [place] [address], [place] [address] Sep, [facility] [address] [id number] [address] [place] [address], [place] [address] Sep, [facility] [address] [id number] [address] [place] [address], [place] [address] Sep, [facility] [address] [id number] [address] [place] [address], [place] [address] Sep, [facility] [address] [id number] [address] [place] [address], [place] [address] Sep, [facility] [address] [id number] [address] [address] Sep, [facility] [address] [facility] [id number] [address] [address] Sep, IMMUNIZATIONS No Known Immunizations SOCIAL HISTORY Never Assessed REASON FOR VISIT PLAN OF CARE VITAL SIGNS MEDICATIONS Unknown Medications RESULTS No Results PROCEDURES Procedure Date Ordered Result Body Site OB US, LIMITED, FETUS(S) March 11, 2013 INSTRUCTIONS MEDICATIONS ADMINISTERED No Known Medications MEDICAL (GENERAL) HISTORY Type Description Date Medical History bipolar Medical History no hx of seizures Surgical History c-sections Hospitalization History x 6 Hospitalization History inpatient psychiatric age 19 dx bipo lar
--- OUTSIDE RECORDS SUMMARY | 2020-03-06 04:15 | XMS REPORT ---
Author Author Angelica Medina Doctor Organization [facility] Address Unknown Phone Unavailable Care Team Providers Care Crossing Flagman Name Role Phone Migration, Doctor Unavailable Unavailable PROBLEMS Type Condition ICD9-CM Code [id number] Code Onset Dates Condition S tatus SNOMED Code Problem Other chronic pain G89.29 Active 8 8361018 Problem Bipolar disorder, curr episode mixed, severe, w/ o psychotic features F31.63 Active 80813039 Problem Posttraumatic stress disorder 309.81 Active 03825735 Problem Urge incontinence N39.41 Active 87 014666 ALLERGIES No Information ENCOUNTERS Encounter Location Date Diagnosis [place] [address] [place] [id number] [address] [place] [address] Nov, High risk medications (not a nticoagulants) long-term use Z79.899 and Bipolar disorder, curr episode mixed, severe, w/o psychotic features F31.63 [place] [address] [place] [id number] [place] [address] Nov, Bipolar disorder, curr episo de mixed, severe, w/o psychotic features F31.63 ; High risk medications (not anticoagulants) long-term use Z79.899 and Screening for diabetes mellitus Z13.1 [place] [address] [place] [id number] [place] [address] Nov, Low back pain M54.5 [place] [address] [place] [id number] [place] [address] Nov, Screening for diabetes melli tus Z13.1 ; Low back pain M54.5 ; Other chronic pain G89.29 ; Screening for lipid disorders Z13.220 ; Thinning hair L65.9 ; Urge incontinence N39.41 ; Fatigue, unspecified type R53.83 ; High risk medications (not anticoagulants) long-term use Z79.899 and Bipolar disorder, curr episode mixed, severe, w/o psychotic features F31.63 [facility] [address] [facility] [id number] [address] [place] [address] Oct, Screening for diabetes melli tus Z13.1 ; Low back pain M54.5 ; Other chronic pain G89.29 ; Screening for lipid disorders Z13.220 ; Thinning hair L65.9 ; Urge incontinence N39.41 ; Fatigue, unspecified type R53.83 ; Bipolar disorder, curr episode mixed, severe, w/o psychotic features F31.63 and High risk medications (not anticoagulants) long-term use Z79.899 [facility] [address] [facility] [id number] [address] [place] [address] Oct, [place] [address] [place] [id number] [address] [place] [address] Oct, Bipolar disorder, curr episo de mixed, severe, w/o psychotic features F31.63 and High risk medications (not anticoagulants) long-term use Z79.899 [facility] [address] [facility] [id number] [address] [place] [address] Oct, Laceration of floor of mouth , initial encounter S01.512A [facility] [address] [place], [place] [id number] 57 Oct, Laceration of floor of mouth, initial encounter S01.512A [facility] [address] [facility] [id number] [address] [place] [address] Dec, [facility] [address] [facility] [id number] [address] [place] [address] Dec, [facility] [address] [facility] [id number] [address] [place] [address] May, [facility] [address] [facility] [id number] [address] [place] [address] May, [facility] [address] [facility] [id number] [address] [place] [address] Mar, [facility] [address] [facility] [id number] [address] [place] [address] January, [facility] [address] [id number] [address] [place] [address], [place] [address] January, [facility] [address] [id number] [address] [place] [address], [place] [address] January, [facility] [address] [id number] [address] [place] [address], [place] [address] January, [facility] [address] [id number] [address] [place] [address], [place] [address] Dec, [facility] [address] [id number] [address] [place] [address], [place] [address] Nov, [facility] [address] [id number] [address] [place] [address], [place] [address] Nov, [facility] [address] [id number] [address] [place] [address], [place] [address] Nov, [facility] [address] [id number] [address] [place] [address], [place] [address] Nov, [facility] [address] [id number] [address] [place] [address], [place] [address] Oct, [facility] [address] [id number] [address] [place] [address], [place] [address] Oct, [facility] [address] [id number] [address] [place] [address], [place] [address] Oct, [facility] [address] [id number] [address] [place] [address], [place] [address] Oct, [facility] [address] [id number] [address] [place] [address], [place] [address] Oct, [facility] [address] [id number] [address] [place] [address], [place] [address] 14 Oct, 2012 [facility] [address] [id number] [address] [place] [address], [place] [address] Oct, [facility] [address] [id number] [address] [place] [address], [place] [address] 19 Sep, 2012 [facility] [address] [id number] [address] [place] [address], [place] [address] 18 Sep, 2012 [facility] [address] [id number] [address] [place] [address], [place] [address] 17 Sep, 2012 [facility] [address] [id number] [address] [place] [address], [place] [address] 17 Sep, 2012 [facility] [address] [id number] [address] [place] [address], [place] [address] 16 Sep, 2012 [facility] [address] [id number] [address] [place] [address], [place] [address] 15 Sep, 2012 [facility] [address] [id number] [address] [place] [address], [place] [address] 14 Sep, 2012 [facility] [address] [id number] [address] [place] [address], [place] [address] 14 Sep, 2012 [facility] [address] [id number] [address] [place] [address], [place] [address] 13 Sep, 2012 [facility] [address] [id number] [address] [place] [address], [place] [address] 13 Sep, 2012 [facility] [address] [id number] [address] [place] [address], [place] [address] 28 Aug, 2012 [facility] [address] [id number] [address] [place] [address], [place] [address] 28 Aug, 2012 [facility] [address] [id number] [address] [place] [address], [place] [address] 20 Aug, 2012 [facility] [address] [id number] [address] [place] [address], [place] [address] 20 Aug, 2012 [facility] [address] [id number] [address] [place] [address], [place] [address] 19 Aug, 2012 [facility] [address] [id number] [address] [place] [address], [place] [address] Aug, [facility] [address] [id number] [address] [place] [address] Aug, [facility] [address] [id number] [address] [place] [address] Nov, [facility] [address] [id number] [address] [place] [address] Oct, [facility] [address] [id number] [address] [place] [address] Oct, [facility] [address] [id number] [address] [place] [address] Sep, [facility] [address] [id number] [address] [place] [address] Sep, [facility] [address] [id number] [address] [place] [address] Sep, [facility] [address] [id number] [address] [place] [address] Sep, [facility] [address] [id number] [address] [place] [address] Sep, [facility] [address] [id number] [address] [place] [address] Sep, [facility] [address] [id number] [address] [place] [address] Sep, IMMUNIZATIONS No Known Immunizations SOCIAL HISTORY Never Assessed REASON FOR VISIT [facility] PLAN OF CARE VITAL SIGNS MEDICATIONS Unknown Medications RESULTS No Results PROCEDURES No Known procedures INSTRUCTIONS MEDICATIONS ADMINISTERED No Known Medications MEDICAL (GENERAL) HISTORY Type Description Date Medical History bipolar Medical History no hx of seizures Surgical History c-sections Hospitalization History x 6 Hospitalization History inpatient psychiatric age 19 dx bipo lar
--- OUTSIDE RECORDS SUMMARY | 2020-03-06 04:15 | XMS REPORT ---
Author Author Angelica Medina Doctor Organization [facility] Address Unknown Phone Unavailable Care Team Providers Care Social Worker Aide Name Role Phone Migration, Doctor Unavailable Unavailable PROBLEMS Type Condition ICD9-CM Code [id number] Code Onset Dates Condition S tatus SNOMED Code Problem Other chronic pain G89.29 Active 8 9000624 Problem Bipolar disorder, curr episode mixed, severe, w/ o psychotic features F31.63 Active 28388746 Problem Posttraumatic stress disorder 309.81 Active 23117269 Problem Urge incontinence N39.41 Active 87 251161 ALLERGIES No Information ENCOUNTERS Encounter Location Date Diagnosis [place] [address] [address] Nov, High risk medications (not a nticoagulants) long-term use Z79.899 and Bipolar disorder, curr episode mixed, severe, w/o psychotic features F31.63 [place] [address] [place] [id number] [address] [place] [address] Nov, Bipolar disorder, curr episo de mixed, severe, w/o psychotic features F31.63 ; High risk medications (not anticoagulants) long-term use Z79.899 and Screening for diabetes mellitus Z13.1 [place] [address] [address] [place] [id number] [address] [place] [address] Nov, Low back pain M54.5 [place] [address] [address] [place] [id number] [address] [place] [address] Nov, Screening for diabetes melli tus Z13.1 ; Low back pain M54.5 ; Other chronic pain G89.29 ; Screening for lipid disorders Z13.220 ; Thinning hair L65.9 ; Urge incontinence N39.41 ; Fatigue, unspecified type R53.83 ; High risk medications (not anticoagulants) long-term use Z79.899 and Bipolar disorder, curr episode mixed, severe, w/o psychotic features F31.63 [facility] [address] [facility] [id number] [address] [place] [address] Oct, Screening for diabetes melli tus Z13.1 ; Low back pain M54.5 ; Other chronic pain G89.29 ; Screening for lipid disorders Z13.220 ; Thinning hair L65.9 ; Urge incontinence N39.41 ; Fatigue, unspecified type R53.83 ; Bipolar disorder, curr episode mixed, severe, w/o psychotic features F31.63 and High risk medications (not anticoagulants) long-term use Z79.899 [facility] [address] [facility] [id number] [address] [place] [address] Oct, [place] [address] [address] [place] [id number] [address] [place] [address] Oct, Bipolar disorder, curr episo de mixed, severe, w/o psychotic features F31.63 and High risk medications (not anticoagulants) long-term use Z79.899 [facility] [address] [place] [id number] [address] [place] [address] Oct, Laceration of floor of mouth , initial encounter S01.512A [facility] [address] [place], [place] [id number] Oct, Laceration of floor of mouth, initial encounter S01.512A [facility] [address] [place] [id number] [address] [place] [address] Dec, [facility] [address] [facility] [id number] [address] [place] [address] Dec, [place] [address] [address] [place] [id number] [address] [place] [address] May, [facility] [address] [place] [id number] [address] [place] [address] May, [facility] [address] [place] [id number] [address] [place] [address] Mar, [facility] [address] [place] [id number] [address] [place] [address] January, [facility] [address] [id number] [address] [place] [address], [place] [address] January, [facility] [address] [id number] [address] [place] [address], [place] [address] January, [facility] [address] [id number] [address] [place] [address], [place] [address] January, [facility] [address] [id number] [address] [place] [address], [place] [address] Dec, [facility] [address] [id number] [address] [place] [address], [place] [address] Nov, [facility] [address] [id number] [address] [place] [address], [place] [address] Nov, [facility] [address] [id number] [address] [place] [address], [place] [address] Nov, [facility] [address] [id number] [address] [place] [address], [place] [address] Nov, [facility] [address] [id number] [address] [place] [address], [place] [address] Oct, [facility] [address] [id number] [address] [place] [address], [place] [address] Oct, [facility] [address] [id number] [address] [place] [address], [place] [address] Oct, [facility] [address] [id number] [address] [place] [address], [place] [address] Oct, [facility] [address] [id number] [address] [place] [address], [place] [address] 15 Oct, 2012 [facility] [address] [id number] [address] [place] [address], [place] [address] 14 Oct, 2012 [facility] [address] [id number] [address] [place] [address], [place] [address] Oct, [facility] [address] [id number] [address] [place] [address], [place] [address] 19 Sep, 2012 [facility] [address] [id number] [address] [place] [address], [place] [address] 18 Sep, 2012 [facility] [address] [id number] [address] [place] [address], [place] [address] 17 Sep, 2012 [facility] [address] [id number] [address] [place] [address], [place] [address] 17 Sep, 2012 [facility] [address] [id number] [address] [place] [address], [place] [address] 16 Sep, 2012 [facility] [address] [id number] [address] [place] [address], [place] [address] 15 Sep, 2012 [facility] [address] [id number] [address] [place] [address], [place] [address] 14 Sep, 2012 [facility] [address] [id number] [address] [place] [address], [place] [address] 14 Sep, 2012 [facility] [address] [id number] [address] [place] [address], [place] [address] 13 Sep, 2012 [facility] [address] [id number] [address] [place] [address], [place] [address] 13 Sep, 2012 [facility] [address] [id number] [address] [place] [address], [place] [address] 28 Aug, 2012 [facility] [address] [id number] [address] [place] [address], [place] [address] 28 Aug, 2012 [facility] [address] [id number] [address] [place] [address], [place] [address] 20 Aug, 2012 [facility] [address] [id number] [address] [place] [address], [place] [address] 20 Aug, 2012 [facility] [address] [id number] [address] [place] [address], [place] [address] 19 Aug, 2012 [facility] [address] [id number] [address] [place] [address], [place] [address] Aug, [facility] [address] [id number] [address] [place] [address] Aug, [facility] [address] [id number] [address] [place] [address] Nov, [facility] [address] [id number] [address] [place] [address] Oct, [facility] [address] [id number] [address] [place] [address] Oct, [facility] [address] [id number] [address] [place] [address] Sep, [facility] [address] [id number] [address] [place] [address] Sep, [facility] [address] [id number] [address] [place] [address] Sep, [facility] [address] [id number] [address] [place] [address] Sep, [facility] [address] [id number] [address] [place] [address] Sep, [facility] [address] [id number] [address] [place] [address] Sep, [facility] [address] [id number] [address] [place] [address] Sep, IMMUNIZATIONS No Known Immunizations SOCIAL HISTORY Never Assessed REASON FOR VISIT [facility] PLAN OF CARE VITAL SIGNS MEDICATIONS Unknown Medications RESULTS No Results PROCEDURES No Known procedures INSTRUCTIONS MEDICATIONS ADMINISTERED No Known Medications MEDICAL (GENERAL) HISTORY Type Description Date Medical History bipolar Medical History no hx of seizures Surgical History c-sections Hospitalization History x 6 Hospitalization History inpatient psychiatric age 19 dx bipo lar
--- OUTSIDE RECORDS SUMMARY | 2020-03-06 04:15 | XMS REPORT ---
Author Author Angelica Medina Doctor Organization [facility] Address Unknown Phone Unavailable Care Team Providers Care Manager Technical Name Role Phone Migration, Doctor Unavailable Unavailable PROBLEMS Type Condition ICD9-CM Code XQT27-QO Code Onset Dates Condition S tatus SNOMED Code Problem Other chronic pain G89.29 Active 8 4783555 Problem Bipolar disorder, curr episode mixed, severe, w/ o psychotic features F31.63 Active 36378811 Problem Posttraumatic stress disorder 309.81 Active 05990375 Problem Urge incontinence N39.41 Active 87 634098 ALLERGIES No Information ENCOUNTERS Encounter Location Date Diagnosis [place] [address] [place] [id number] [address] [place] [address] Nov, High risk medications (not a nticoagulants) long-term use Z79.899 and Bipolar disorder, curr episode mixed, severe, w/o psychotic features F31.63 [place] [address] [address] [place] [id number] [address] [place] [address] Nov, Bipolar disorder, curr episo de mixed, severe, w/o psychotic features F31.63 ; High risk medications (not anticoagulants) long-term use Z79.899 and Screening for diabetes mellitus Z13.1 [place] [address] [place] [id number] [address] [place] [address] Nov, Low back pain M54.5 [place] [address] [address] [place] [id number] [address] [place] [address] Nov, Screening for diabetes melli tus Z13.1 ; Low back pain M54.5 ; Other chronic pain G89.29 ; Screening for lipid disorders Z13.220 ; Thinning hair L65.9 ; Urge incontinence N39.41 ; Fatigue, unspecified type R53.83 ; High risk medications (not anticoagulants) long-term use Z79.899 and Bipolar disorder, curr episode mixed, severe, w/o psychotic features F31.63 [facility] [address] [facility] [id number] [address] [place] [address] Oct, Screening for diabetes melli tus Z13.1 ; Low back pain M54.5 ; Other chronic pain G89.29 ; Screening for lipid disorders Z13.220 ; Thinning hair L65.9 ; Urge incontinence N39.41 ; Fatigue, unspecified type R53.83 ; Bipolar disorder, curr episode mixed, severe, w/o psychotic features F31.63 and High risk medications (not anticoagulants) long-term use Z79.899 [facility] [address] [facility] [id number] [address] [place] [address] Oct, [place] [place] [id number] [address] [place] [address] Oct, Bipolar disorder, curr episo de mixed, severe, w/o psychotic features F31.63 and High risk medications (not anticoagulants) long-term use Z79.899 [facility] [address] [facility] [id number] [address] [place] [address] Oct, Laceration of floor of mouth , initial encounter S01.512A [facility] [address] [place], [place] [id number] Oct, Laceration of floor of mouth, initial encounter S01.512A [facility] [address] [facility] [id number] [address] [place] [address] Dec, [facility] [address] [facility] [id number] [address] [place] [address] Dec, [facility] [address] [facility] [id number] [address] [place] [address] May, [facility] [address] [facility] [id number] [address] [place] [address] May, [facility] [address] [facility] [id number] [address] [place] [address] Mar, [facility] [address] [facility] [id number] [address] [place] [address] January, [facility] [address] [id number] [address] [place] [address], [place] [address] January, [facility] [address] [id number] [address] [place] [address], [place] [address] January, [facility] [address] [id number] [address] [place] [address], [place] [address] January, [facility] [address] [id number] [address] [place] [address], [place] [address] Dec, [facility] [address] [id number] [address] [place] [address], [place] [address] Nov, [facility] [address] [id number] [address] [place] [address], [place] [address] Nov, [facility] [address] [id number] [address] [place] [address], [place] [address] Nov, [facility] [address] [id number] [address] [place] [address], [place] [address] Nov, [facility] [address] [id number] [address] [place] [address], [place] [address] Oct, [facility] [address] [id number] [address] [place] [address], [place] [address] Oct, [facility] [address] [id number] [address] [place] [address], [place] [address] Oct, [facility] [address] [id number] [address] [place] [address], [place] [address] Oct, [facility] [address] [id number] [address] [place] [address], [place] [address] Oct, [facility] [address] [id number] [address] [place] [address], [place] [address] 14 Oct, 2012 [facility] [address] [id number] [address] [place] [address], [place] [address] Oct, [facility] [address] [id number] [address] [place] [address], [place] [address] 19 Sep, 2012 [facility] [address] [id number] [address] [place] [address], [place] [address] 18 Sep, 2012 [facility] [address] [id number] [address] [place] [address], [place] [address] 17 Sep, 2012 [facility] [address] [id number] [address] [place] [address], [place] [address] 17 Sep, 2012 [facility] [address] [id number] [address] [place] [address], [place] [address] 16 Sep, 2012 [facility] [address] [id number] [address] [place] [address], [place] [address] 15 Sep, 2012 [facility] [address] [id number] [address] [place] [address], [place] [address] 14 Sep, 2012 [facility] [address] [id number] [address] [place] [address], [place] [address] 14 Sep, 2012 [facility] [address] [id number] [address] [place] [address], [place] [address] 13 Sep, 2012 [facility] [address] [id number] [address] [place] [address], [place] [address] 13 Sep, 2012 [facility] [address] [id number] [address] [place] [address], [place] [address] 28 Aug, 2012 [facility] [address] [id number] [address] [place] [address], [place] [address] 28 Aug, 2012 [facility] [address] [id number] [address] [place] [address], [place] [address] 20 Aug, 2012 [facility] [address] [id number] [address] [place] [address], [place] [address] 20 Aug, 2012 [facility] [address] [id number] [address] [place] [address], [place] [address] 19 Aug, 2012 [facility] [address] [id number] [address] [place] [address], [place] [address] Aug, [facility] [address] [id number] [address] [place] [address] Aug, [facility] [address] [id number] [address] [place] [address] Nov, [facility] [address] [id number] [address] [place] [address] Oct, [facility] [address] [id number] [address] [place] [address] Oct, [facility] [address] [id number] [address] [place] [address] Sep, [facility] [address] [id number] [address] [place] [address] Sep, [facility] [address] [id number] [address] [place] [address] Sep, [facility] [address] [id number] [address] [place] [address] Sep, [facility] [address] [id number] [address] [place] [address] Sep, [facility] [address] [id number] [address] [place] [address] Sep, [facility] [address] [id number] [address] [place] [address] Sep, IMMUNIZATIONS No Known Immunizations SOCIAL HISTORY Never Assessed REASON FOR VISIT [facility] [place]AN OF CARE VITAL SIGNS MEDICATIONS Unknown Medications RESULTS No Results PROCEDURES No Known procedures INSTRUCTIONS MEDICATIONS ADMINISTERED No Known Medications MEDICAL (GENERAL) HISTORY Type Description Date Medical History bipolar Medical History no hx of seizures Surgical History c-sections Hospitalization History x 6 Hospitalization History inpatient psychiatric age 19 dx bipo lar
--- OUTSIDE RECORDS SUMMARY | 2020-03-06 04:15 | XMS REPORT ---
Author Author Angelica LOVING Organization [facility] Address [address] [place] [address] Care Team Providers Care Adjuster And Inspector Name Role Phone YAHIR LOVING Unavailable PROBLEMS Type Condition ICD9-CM Code [id number] Code Onset Dates Condition S tatus SNOMED Code Problem Other chronic pain G89.29 Active 8 8922428 Problem Bipolar disorder, curr episode mixed, severe, w/ o psychotic features F31.63 Active 21624958 Problem Posttraumatic stress disorder 309.81 Active 21734861 Problem Urge incontinence N39.41 Active 87 924016 ALLERGIES Substance Reaction Event Type Date Status Percocet lethargy Drug Allergy Oct, Active ENCOUNTERS Encounter Location Date Diagnosis [address] [address] Nov, High risk medications (not anticoagulant s) long-term use Z79.899 and Bipolar disorder, curr episode mixed, severe, w/o psychotic features F31.[address] [address] Nov, Bipolar disorder, curr episode mixed, se karina, w/o psychotic features F31.63 ; High risk medications (not anticoagulants) long-term use Z79.899 and Screening for diabetes mellitus Z13.1 [place] [address] [address] Nov, Low back pain M54.[address] [address] Nov, Screening for diabetes mellitus Z13.1 ; Low back pain M54.5 ; Other chronic pain G89.29 ; Screening for lipid disorders Z13.220 ; Thinning hair L65.9 ; Urge incontinence N39.41 ; Fatigue, unspecified type R53.83 ; High risk medications (not anticoagulants) long-term use Z79.899 and Bipolar disorder, curr episode mixed, severe, w/o psychotic features F31.63 [facility] [address] [address] Oct, Screening for diabetes mellitus Z13.1 ; Low back pain M54.5 ; Other chronic pain G89.29 ; Screening for lipid disorders Z13.220 ; Thinning hair L65.9 ; Urge incontinence N39.41 ; Fatigue, unspecified type R53.83 ; Bipolar disorder, curr episode mixed, severe, w/o psychotic features F31.63 and High risk medications (not anticoagulants) long-term use Z79.899 [place] [address] [address] Oct, [place] [address] [address] Oct, Bipolar disorder, curr episode mixed, se karina, w/o psychotic features F31.63 and High risk medications (not anticoagulants) long-term use Z79.899 [place] [address] [address] Oct, Laceration of floor of mouth, initial en counter S01.512A [facility] [address] [place], [place] [id number] Oct, Laceration of floor of mouth, initial encounter S01.512A [place] [address] [address] Dec, [place] [address] [address] Dec, [place] [address] [address] May, [place] [address] [address] May, [place] [address] [address] Mar, [place] [address] [address] January, [facility] [address] [facility] [address] [id number] [facility] [place] [address] January, [facility] [address] [id number] [place] [address] January, [facility] [address] [id number] [place] [address] January, [facility] [address] [id number] [place] [address] Dec, [facility] [address] [id number] [place] [address] Nov, [facility] [address] [id number] [place] [address] Nov, [facility] [address] [id number] [place] [address] Nov, [facility] [address] [id number] [place] [address] Nov, [facility] [address] [id number] [place] [address] Oct, [facility] [address] [id number] [place] [address] Oct, [facility] [address] [id number] [place] [address] Oct, [facility] [address] [id number] [place] [address] Oct, [facility] [address] [id number] [place] [address] 15 Oct, 2012 [facility] [address] [id number] [place] [address] 14 Oct, 2012 [facility] [address] [id number] [place] [address] Oct, [facility] [address] [id number] [place] [address] Sep, [facility] [address] [id number] [place] [address] 18 Sep, 2012 [facility] [address] [id number] [place] [address] 17 Sep, 2012 [facility] [address] [id number] [place] [address] 17 Sep, 2012 [facility] [address] [id number] [place] [address] 16 Sep, 2012 [facility] [address] [id number] [place] [address] 15 Sep, 2012 [facility] [address] [id number] [place] [address] 14 Sep, 2012 [facility] [address] [id number] [place] [address] 14 Sep, 2012 [facility] [address] [id number] [place] [address] 13 Sep, 2012 [facility] [address] [id number] [place] [address] 13 Sep, 2012 [facility] [address] [id number] [place] [address] 28 Aug, 2012 [facility] [address] [id number] [place] [address] 28 Aug, 2012 [facility] [address] [id number] [place] [address] 20 Aug, 2012 [facility] [address] [id number] [place] [address] 20 Aug, 2012 [facility] [address] [id number] [place] [address] 19 Aug, 2012 [facility] [address] [id number] [place] [address] 15 Aug, 2012 [facility] [address] [id number] [place] [address] 15 Aug, 2012 [facility] [address] [id number] [place] [address] Nov, [facility] [address] [id number] [place] [address] Oct, [facility] [address] [place] [id number] [place] [address] Oct, [facility] [address] [place] [id number] [place] [address] Sep, [facility] [address] [address] Sep, [facility] [address] [address] Sep, [facility] [address] [address] Sep, [facility] [address] [place] [id number] [place] [address] Sep, [facility] [address] [address] Sep, [facility] [address] [place] [id number] [place] [address] Sep, IMMUNIZATIONS No Known Immunizations SOCIAL HISTORY Never Assessed REASON FOR VISIT Establish Care/ she states her proviser told her is needing her depakote leve ls -- fortunato tai, patient would like to be check her thyroid levels , having p ayad on low back noticed a bump x the last 6 months PLAN OF CARE Activity Details Follow Up 6 Weeks f/u new med and revi ew labs Reason: VITAL SIGNS Height 67 in 2018-11-01 Weight 148.0 lbs 2018-11-01 Temperature 98.0 degrees Fahrenheit 2018-11-01 BMI 23.18 kg/m2 2018-11-01 Blood pressure systolic 118 mmHg 2018-11-01 Blood pressure diastolic 70 mmHg 2018-11-01 MEDICATIONS Medication Instructions Dosage Frequency Start Date End Date Duration S tatus Multivitamin Women - as directed Active Depakote ER 500 MG Orally at night 2 tablets Oct, 30 days Active Potassimin 75 MG Orally Once a day every other day 1 tablet 30 day(s) Active Cyclobenzaprine HCl 10 mg Orally Once daily at bedtime 1 tablet as needed Oct, 30 days Active HydrOXYzine HCl 25 MG Orally bid as needed 0.5-2 tabs Oct, 30 days Active Iron (Ferrous Sulfate) 142 (45 Fe) MG Orally Once a day 1 tablet 24h 30 day(s) Not-Taking RESULTS No Results PROCEDURES No Known procedures INSTRUCTIONS MEDICATIONS ADMINISTERED No Known Medications MEDICAL (GENERAL) HISTORY Type Description Date Medical History bipolar Medical History no hx of seizures Surgical History c-sections Hospitalization History x 6 Hospitalization History inpatient psychiatric age 19 dx bipo lar
--- OUTSIDE RECORDS SUMMARY | 2020-03-06 04:15 | XMS REPORT ---
Author Author Angelica Medina Doctor Organization [facility] Address Unknown Phone Unavailable Care Team Providers Care Inserter Name Role Phone Migration, Doctor Unavailable Unavailable PROBLEMS Type Condition ICD9-CM Code [id number] Code Onset Dates Condition S tatus SNOMED Code Problem Other chronic pain G89.29 Active 8 5850381 Problem Bipolar disorder, curr episode mixed, severe, w/ o psychotic features F31.63 Active 25871986 Problem Posttraumatic stress disorder 309.81 Active 43982857 Problem Urge incontinence N39.41 Active 87 241646 ALLERGIES No Information ENCOUNTERS Encounter Location Date Diagnosis [place] [address] [address] Nov, High risk medications (not a nticoagulants) long-term use Z79.899 and Bipolar disorder, curr episode mixed, severe, w/o psychotic features F31.63 [place] [address] [place] [id number] [place] [address] Nov, Bipolar disorder, curr episo de mixed, severe, w/o psychotic features F31.63 ; High risk medications (not anticoagulants) long-term use Z79.899 and Screening for diabetes mellitus Z13.1 [place] [address] [place] [id number] [place] [address] Nov, Low back pain M54.5 [place] [address] [place] [id number] [place] [address] Nov, Screening for diabetes melli tus Z13.1 ; Low back pain M54.5 ; Other chronic pain G89.29 ; Screening for lipid disorders Z13.220 ; Thinning hair L65.9 ; Urge incontinence N39.41 ; Fatigue, unspecified type R53.83 ; High risk medications (not anticoagulants) long-term use Z79.899 and Bipolar disorder, curr episode mixed, severe, w/o psychotic features F31.63 [facility] [address] [facility] [id number] [address] [place] [address] Oct, Screening for diabetes melli tus Z13.1 ; Low back pain M54.5 ; Other chronic pain G89.29 ; Screening for lipid disorders Z13.220 ; Thinning hair L65.9 ; Urge incontinence N39.41 ; Fatigue, unspecified type R53.83 ; Bipolar disorder, curr episode mixed, severe, w/o psychotic features F31.63 and High risk medications (not anticoagulants) long-term use Z79.899 [facility] [address] [facility] [id number] [address] [place] [address] Oct, [place] [address] [place] [id number] [address] [place] [address] Oct, Bipolar disorder, curr episo de mixed, severe, w/o psychotic features F31.63 and High risk medications (not anticoagulants) long-term use Z79.899 [facility] [address] [place] [id number] [address] [place] [address] Oct, Laceration of floor of mouth , initial encounter S01.512A [facility] [address], [place] [id number] Oct, Laceration of floor of mouth, initial encounter S01.512A [facility] [address] [place] [id number] [address] [place] [address] Dec, [facility] [address] [facility] [id number] [address] [place] [address] Dec, [place] [address] [place] [id number] [address] [place] [address] May, [facility] [address] [place] [id number] [address] [place] [address] May, [facility] [address] [place] [id number] [address] [place] [address] Mar, [facility] [address] [place] [id number] [address] [place] [address] January, [facility] [address] [id number] [address] [place] [address], [place] [address] January, [facility] [address] [id number] [address] [place] [address], [place] [address] January, [facility] [address] [id number] [address] [place] [address], [place] [address] January, [facility] [address] [id number] [address] [place] [address], [place] [address] Dec, [facility] [address] [id number] [address] [place] [address], [place] [address] Nov, [facility] [address] [id number] [address] [place] [address], [place] [address] Nov, [facility] [address] [id number] [address] [place] [address], [place] [address] Nov, [facility] [address] [id number] [address] [place] [address], [place] [address] Nov, [facility] [address] [id number] [address] [place] [address], [place] [address] Oct, [facility] [address] [id number] [address] [place] [address], [place] [address] Oct, [facility] [address] [id number] [address] [place] [address], [place] [address] Oct, [facility] [address] [id number] [address] [place] [address], [place] [address] Oct, [facility] [address] [id number] [address] [place] [address], [place] [address] 15 Oct, 2012 [facility] [address] [id number] [address] [place] [address], [place] [address] 14 Oct, 2012 [facility] [address] [id number] [address] [place] [address], [place] [address] Oct, [facility] [address] [id number] [address] [place] [address], [place] [address] 19 Sep, 2012 [facility] [address] [id number] [address] [place] [address], [place] [address] 18 Sep, 2012 [facility] [address] [id number] [address] [place] [address], [place] [address] 17 Sep, 2012 [facility] [address] [id number] [address] [place] [address], [place] [address] 17 Sep, 2012 [facility] [address] [id number] [address] [place] [address], [place] [address] 16 Sep, 2012 [facility] [address] [id number] [address] [place] [address], [place] [address] 15 Sep, 2012 [facility] [address] [id number] [address] [place] [address], [place] [address] 14 Sep, 2012 [facility] [address] [id number] [address] [place] [address], [place] [address] 14 Sep, 2012 [facility] [address] [id number] [address] [place] [address], [place] [address] 13 Sep, 2012 [facility] [address] [id number] [address] [place] [address], [place] [address] 13 Sep, 2012 [facility] [address] [id number] [address] [place] [address], [place] [address] 28 Aug, 2012 [facility] [address] [id number] [address] [place] [address], [place] [address] 28 Aug, 2012 [facility] [address] [id number] [address] [place] [address], [place] [address] 20 Aug, 2012 [facility] [address] [id number] [address] [place] [address], [place] [address] 20 Aug, 2012 [facility] [address] [id number] [address] [place] [address], [place] [address] 19 Aug, 2012 [facility] [address] [id number] [address] [place] [address], [place] [address] Aug, [facility] [address] [id number] [address] [place] [address] Aug, [facility] [address] [id number] [address] [place] [address] Nov, [facility] [address] [id number] [address] [place] [address] Oct, [facility] [address] [id number] [address] [place] [address] Oct, [facility] [address] [id number] [address] [place] [address] Sep, [facility] [address] [id number] [address] [place] [address] Sep, [facility] [address] [id number] [address] [place] [address] Sep, [facility] [address] [id number] [address] [place] [address] Sep, [facility] [address] [id number] [address] [place] [address] Sep, [facility] [address] [id number] [address] [place] [address] Sep, [facility] [address] [id number] [address] [place] [address] Sep, IMMUNIZATIONS No Known Immunizations SOCIAL HISTORY Never Assessed REASON FOR VISIT [facility] PLAN OF CARE VITAL SIGNS MEDICATIONS Unknown Medications RESULTS No Results PROCEDURES No Known procedures INSTRUCTIONS MEDICATIONS ADMINISTERED No Known Medications MEDICAL (GENERAL) HISTORY Type Description Date Medical History bipolar Medical History no hx of seizures Surgical History c-sections Hospitalization History x 6 Hospitalization History inpatient psychiatric age 19 dx bipo lar
--- OUTSIDE RECORDS SUMMARY | 2020-03-06 04:15 | XMS REPORT ---
Author Author Angelica Medina Doctor Organization [facility] Address Unknown Phone Unavailable Care Team Providers Care Heavy Machinery Assembler Name Role Phone Migration, Doctor Unavailable Unavailable PROBLEMS Type Condition ICD9-CM Code [id number] Code Onset Dates Condition S tatus SNOMED Code Problem Other chronic pain G89.29 Active 8 7422936 Problem Bipolar disorder, curr episode mixed, severe, w/ o psychotic features F31.63 Active 80366376 Problem Posttraumatic stress disorder 309.81 Active 22486930 Problem Urge incontinence N39.41 Active 87 406894 ALLERGIES No Information ENCOUNTERS Encounter Location Date Diagnosis [place] [address] [phone] Nov, High risk medications (not a nticoagulants) long-term use Z79.899 and Bipolar disorder, curr episode mixed, severe, w/o psychotic features F31.63 [place] [address] [address] [place] [id number] [address] [place] [phone] Nov, Bipolar disorder, curr episo de mixed, severe, w/o psychotic features F31.63 ; High risk medications (not anticoagulants) long-term use Z79.899 and Screening for diabetes mellitus Z13.1 [place] [address] [address] [place] [id number] [address] [place] [phone] Nov, Low back pain M54.5 [place] [address] [address] [place] [id number] [address] [place] [phone] Nov, Screening for diabetes melli tus Z13.1 ; Low back pain M54.5 ; Other chronic pain G89.29 ; Screening for lipid disorders Z13.220 ; Thinning hair L65.9 ; Urge incontinence N39.41 ; Fatigue, unspecified type R53.83 ; High risk medications (not anticoagulants) long-term use Z79.899 and Bipolar disorder, curr episode mixed, severe, w/o psychotic features F31.63 [facility] [address] [facility] [id number] [address] [place] [phone] Oct, Screening for diabetes melli tus Z13.1 ; Low back pain M54.5 ; Other chronic pain G89.29 ; Screening for lipid disorders Z13.220 ; Thinning hair L65.9 ; Urge incontinence N39.41 ; Fatigue, unspecified type R53.83 ; Bipolar disorder, curr episode mixed, severe, w/o psychotic features F31.63 and High risk medications (not anticoagulants) long-term use Z79.899 [facility] [address] [facility] [id number] [address] [place] [phone] Oct, [place] [address] [address] [place] [id number] [address] [place] [phone] Oct, Bipolar disorder, curr episo de mixed, severe, w/o psychotic features F31.63 and High risk medications (not anticoagulants) long-term use Z79.899 [facility] [address] [place] [id number] [address] [place] [phone] Oct, Laceration of floor of mouth , initial encounter S01.512A [facility] [address] [place], [place] [id number] 57 Oct, Laceration of floor of mouth, initial encounter S01.512A [facility] [address] [place] [id number] [address] [place] [phone] Dec, [facility] [address] [facility] [id number] [address] [place] [phone] Dec, [place] [address] [address] [place] [id number] [address] [place] [phone] May, [facility] [address] [place] [id number] [address] [place] [phone] May, [facility] [address] [place] [id number] [address] [place] [address] Mar, [facility] [address] [place] [id number] [address] [place] [phone] January, [facility] [address] [id number] [address] [place] [address], [place] [address] January, [facility] [address] [id number] [address] [place] [address], [place] [address] January, [facility] [address] [id number] [address] [place] [address], [place] [address] January, [facility] [address] [id number] [address] [place] [address], [place] [address] Dec, [facility] [address] [id number] [address] [place] [address], [place] [address] Nov, [facility] [address] [id number] [address] [place] [address], [place] [address] Nov, [facility] [address] [id number] [address] [place] [address], [place] [address] Nov, [facility] [address] [id number] [address] [place] [address], [place] [address] Nov, [facility] [address] [id number] [address] [place] [address], [place] [address] Oct, [facility] [address] [id number] [address] [place] [address], [place] [address] Oct, [facility] [address] [id number] [address] [place] [address], [place] [address] Oct, [facility] [address] [id number] [address] [place] [address], [place] [address] Oct, [facility] [address] [id number] [address] [place] [address], [place] [address] 15 Oct, 2012 [facility] [address] [id number] [address] [place] [address], [place] [address] 14 Oct, 2012 [facility] [address] [id number] [address] [place] [address], [place] [address] Oct, [facility] [address] [id number] [address] [place] [address], [place] [address] 19 Sep, 2012 [facility] [address] [id number] [address] [place] [address], [place] [address] 18 Sep, 2012 [facility] [address] [id number] [address] [place] [address], [place] [address] 17 Sep, 2012 [facility] [address] [id number] [address] [place] [address], [place] [address] 17 Sep, 2012 [facility] [address] [id number] [address] [place] [address], [place] [address] 16 Sep, 2012 [facility] [address] [id number] [address] [place] [address], [place] [address] 15 Sep, 2012 [facility] [address] [id number] [address] [place] [address], [place] [address] 14 Sep, 2012 [facility] [address] [id number] [address] [place] [address], [place] [address] 14 Sep, 2012 [facility] [address] [id number] [address] [place] [address], [place] [address] 13 Sep, 2012 [facility] [address] [id number] [address] [place] [address], [place] [address] 13 Sep, 2012 [facility] [address] [id number] [address] [place] [address], [place] [address] 28 Aug, 2012 [facility] [address] [id number] [address] [place] [address], [place] [address] 28 Aug, 2012 [facility] [address] [id number] [address] [place] [address], [place] [address] 20 Aug, 2012 [facility] [address] [id number] [address] [place] [address], [place] [address] 20 Aug, 2012 [facility] [address] [id number] [address] [place] [address], [place] [address] 19 Aug, 2012 [facility] [address] [id number] [address] [place] [address], [place] [address] Aug, [facility] [address] [id number] [address] [place] [phone] Aug, [facility] [address] [id number] [address] [place] [phone] Nov, [facility] [address] [id number] [address] [place] [phone] Oct, [facility] [address] [id number] [address] [place] [phone] Oct, [facility] [address] [id number] [address] [place] [phone] Sep, [facility] [address] [id number] [address] [place] [phone] Sep, [facility] [address] [id number] [address] [place] [phone] Sep, [facility] [address] [id number] [address] [place] [phone] Sep, [facility] [address] [id number] [address] [place] [phone] Sep, [facility] [address] [id number] [address] [place] [phone] Sep, [facility] [address] [id number] [address] [place] [phone] Sep, IMMUNIZATIONS No Known Immunizations SOCIAL HISTORY Never Assessed REASON FOR VISIT [facility] PLAN OF CARE VITAL SIGNS MEDICATIONS Medication Instructions Dosage Frequency Start Date End Date Duration S tatus Flagyl 500 mg 1 tablet by Oral route 2 times per day f or 7 days Sep, Active Lamictal 25 mg 1 tablet by Oral rou te 1 time per day for 15 day(s)Then take 2 orally for 15 days Oct, Active Nitrofurantoin Macrocrystal 100 mg 1 cap lance by Oral route 2 times per day for 7 day(s) January, Active RESULTS No Results PROCEDURES No Known procedures INSTRUCTIONS MEDICATIONS ADMINISTERED No Known Medications MEDICAL (GENERAL) HISTORY Type Description Date Medical History bipolar Medical History no hx of seizures Surgical History c-sections Hospitalization History x 6 Hospitalization History inpatient psychiatric age 19 dx bipo lar
--- OUTSIDE RECORDS SUMMARY | 2020-03-06 04:15 | XMS REPORT ---
Author Author Angelica Medina Doctor Organization [facility] Address Unknown Phone Unavailable Care Team Providers Care Administration Dean Name Role Phone Migration, Doctor Unavailable Unavailable PROBLEMS Type Condition ICD9-CM Code YTO39-AL Code Onset Dates Condition S tatus SNOMED Code Problem Other chronic pain G89.29 Active 8 8106657 Problem Bipolar disorder, curr episode mixed, severe, w/ o psychotic features F31.63 Active 27646138 Problem Posttraumatic stress disorder 309.81 Active 27793386 Problem Urge incontinence N39.41 Active 87 520289 ALLERGIES No Information ENCOUNTERS Encounter Location Date Diagnosis [place] [address] [address] Nov, High risk medications (not a nticoagulants) long-term use Z79.899 and Bipolar disorder, curr episode mixed, severe, w/o psychotic features F31.63 [place] [address] [place] [id number] [address] [place] [address] Nov, Bipolar disorder, curr episo de mixed, severe, w/o psychotic features F31.63 ; High risk medications (not anticoagulants) long-term use Z79.899 and Screening for diabetes mellitus Z13.1 [place] [address] [place] [id number] [address] [place] [phone] Nov, Low back pain M54.5 [place] [address] [place] [id number] [address] [place] [address] Nov, Screening for diabetes melli tus Z13.1 ; Low back pain M54.5 ; Other chronic pain G89.29 ; Screening for lipid disorders Z13.220 ; Thinning hair L65.9 ; Urge incontinence N39.41 ; Fatigue, unspecified type R53.83 ; High risk medications (not anticoagulants) long-term use Z79.899 and Bipolar disorder, curr episode mixed, severe, w/o psychotic features F31.63 [facility] [address] [facility] [id number] [address] [place] [phone] Oct, Screening for diabetes melli tus Z13.1 ; Low back pain M54.5 ; Other chronic pain G89.29 ; Screening for lipid disorders Z13.220 ; Thinning hair L65.9 ; Urge incontinence N39.41 ; Fatigue, unspecified type R53.83 ; Bipolar disorder, curr episode mixed, severe, w/o psychotic features F31.63 and High risk medications (not anticoagulants) long-term use Z79.899 [facility] [address] [facility] [id number] [address] [place] [phone] Oct, [place] [address] [address] [place] [id number] [address] [place] [phone] Oct, Bipolar disorder, curr episo de mixed, severe, w/o psychotic features F31.63 and High risk medications (not anticoagulants) long-term use Z79.899 [facility] [address] [place] [id number] [address] [place] [phone] Oct, Laceration of floor of mouth , initial encounter S01.512A [facility] [address] [place], [place] [id number] Oct, Laceration of floor of mouth, initial encounter S01.512A [facility] [address] [place] [id number] [address] [place] [phone] Dec, [facility] [address] [facility] [id number] [address] [place] [phone] Dec, [place] [address] [address] [place] [id number] [address] [place] [phone] May, [facility] [address] [place] [id number] [address] [place] [phone] May, [facility] [address] [place] [id number] [address] [place] [phone] Mar, [facility] [address] [place] [id number] [address] [place] [phone] January, [facility] [address] [id number] [address] [place] [address], [place] [id number] January, [facility] [address] [id number] [address] [place] [address], [place] [id number] January, [facility] [address] [id number] [address] [place] [address], [place] [id number] January, [facility] [address] [id number] [address] [place] [address], [place] [id number] Dec, [facility] [address] [id number] [address] [place] [address], [place] [id number] Nov, [facility] [address] [id number] [address] [place] [address], [place] [id number] Nov, [facility] [address] [id number] [address] [place] [address], [place] [id number] Nov, [facility] [address] [id number] [address] [place] [address], [place] [id number] Nov, [facility] [address] [id number] [address] [place] [address], [place] [id number] Oct, [facility] [address] [id number] [address] [place] [address], [place] [id number] Oct, [facility] [address] [id number] [address] [place] [address], [place] [id number] Oct, [facility] [address] [id number] [address] [place] [address], [place] [id number] Oct, [facility] [address] [id number] [address] [place] [address], [place] [id number] 15 Oct, 2012 [facility] [address] [id number] [address] [place] [address], [place] [id number] 14 Oct, 2012 [facility] [address] [id number] [address] [place] [address], [place] [id number] Oct, [facility] [address] [id number] [address] [place] [address], [place] [id number] 19 Sep, 2012 [facility] [address] [id number] [address] [place] [address], [place] [id number] 18 Sep, 2012 [facility] [address] [id number] [address] [place] [address], [place] [id number] 17 Sep, 2012 [facility] [address] [id number] [address] [place] [address], [place] [id number] 17 Sep, 2012 [facility] [address] [id number] [address] [place] [address], [place] [id number] 16 Sep, 2012 [facility] [address] [id number] [address] [place] [address], [place] [id number] 15 Sep, 2012 [facility] [address] [id number] [address] [place] [address], [place] [id number] 14 Sep, 2012 [facility] [address] [id number] [address] [place] [address], [place] [id number] 14 Sep, 2012 [facility] [address] [id number] [address] [place] [address], [place] [id number] 13 Sep, 2012 [facility] [address] [id number] [address] [place] [address], [place] [id number] 13 Sep, 2012 [facility] [address] [id number] [address] [place] [address], [place] [id number] 28 Aug, 2012 [facility] [address] [id number] [address] [place] [address], [place] [id number] 28 Aug, 2012 [facility] [address] [id number] [address] [place] [address], [place] [id number] 20 Aug, 2012 [facility] [address] [id number] [address] [place] [address], [place] [id number] 20 Aug, 2012 [facility] [address] [id number] [address] [place] [address], [place] [id number] 19 Aug, 2012 [facility] [address] [id number] [address] [place] [address], [place] [id number] Aug, [facility] [address] [id number] [address] [place] [phone] Aug, [facility] [address] [id number] [address] [place] [phone] Nov, [facility] [address] [id number] [address] [place] [phone] Oct, [facility] [address] [id number] [address] [place] [phone] Oct, [facility] [address] [id number] [address] [place] [phone] Sep, [facility] [address] [id number] [address] [place] [phone] Sep, [facility] [address] [id number] [address] [place] [phone] Sep, [facility] [address] [id number] [address] [place] [phone] Sep, [facility] [address] [id number] [address] [place] [phone] Sep, [facility] [address] [id number] [address] [place] [phone] Sep, [facility] [address] [id number] [address] [place] [phone] Sep, IMMUNIZATIONS No Known Immunizations SOCIAL HISTORY Never Assessed REASON FOR VISIT [facility] PLAN OF CARE VITAL SIGNS MEDICATIONS Unknown Medications RESULTS No Results PROCEDURES No Known procedures INSTRUCTIONS MEDICATIONS ADMINISTERED No Known Medications MEDICAL (GENERAL) HISTORY Type Description Date Medical History bipolar Medical History no hx of seizures Surgical History c-sections Hospitalization History x 6 Hospitalization History inpatient psychiatric age 19 dx bipo lar
--- OUTSIDE RECORDS SUMMARY | 2020-03-06 04:15 | XMS REPORT ---
Author Author Angelica Medina Doctor Organization [facility] Address Unknown Phone Unavailable Care Team Providers Care Developmental Psychologist Name Role Phone Migration, Doctor Unavailable Unavailable PROBLEMS Type Condition ICD9-CM Code [id number] Code Onset Dates Condition S tatus SNOMED Code Problem Other chronic pain G89.29 Active 8 0178856 Problem Bipolar disorder, curr episode mixed, severe, w/ o psychotic features F31.63 Active 51149434 Problem Posttraumatic stress disorder 309.81 Active 08738169 Problem Urge incontinence N39.41 Active 87 409577 ALLERGIES No Information ENCOUNTERS Encounter Location Date Diagnosis [place] [address] [place] [id number] [place] [address] Nov, High risk medications (not a nticoagulants) long-term use Z79.899 and Bipolar disorder, curr episode mixed, severe, w/o psychotic features F31.63 [place] [address] [place] [id number] [place] [address] Nov, Bipolar disorder, curr episo de mixed, severe, w/o psychotic features F31.63 ; High risk medications (not anticoagulants) long-term use Z79.899 and Screening for diabetes mellitus Z13.1 [place] [address] [place] [id number] [place] [address] Nov, Low back pain M54.5 [place] [address] [place] [id number] [place] [address] Nov, Screening for diabetes melli tus Z13.1 ; Low back pain M54.5 ; Other chronic pain G89.29 ; Screening for lipid disorders Z13.220 ; Thinning hair L65.9 ; Urge incontinence N39.41 ; Fatigue, unspecified type R53.83 ; High risk medications (not anticoagulants) long-term use Z79.899 and Bipolar disorder, curr episode mixed, severe, w/o psychotic features F31.63 [facility] [address] [facility] [id number] [address] [place] [address] Oct, Screening for diabetes melli tus Z13.1 ; Low back pain M54.5 ; Other chronic pain G89.29 ; Screening for lipid disorders Z13.220 ; Thinning hair L65.9 ; Urge incontinence N39.41 ; Fatigue, unspecified type R53.83 ; Bipolar disorder, curr episode mixed, severe, w/o psychotic features F31.63 and High risk medications (not anticoagulants) long-term use Z79.899 [facility] [address] [facility] [id number] [address] [place] [address] Oct, [place] [id number] [place] [id number] [address] [place] [address] Oct, Bipolar disorder, curr episo de mixed, severe, w/o psychotic features F31.63 and High risk medications (not anticoagulants) long-term use Z79.899 [facility] [address] [facility] [id number] [address] [place] [address] Oct, Laceration of floor of mouth , initial encounter S01.512A [facility] [address] [place], [place] [address] 57 Oct, Laceration of floor of mouth, initial encounter S01.512A [facility] [address] [facility] [id number] [address] [place] [address] Dec, [facility] [address] [facility] [id number] [address] [place] [address] Dec, [facility] [address] [facility] [id number] [address] [place] [address] May, [facility] [address] [facility] [id number] [address] [place] [address] May, [facility] [address] [facility] [id number] [address] [place] [address] Mar, [facility] [address] [facility] [id number] [address] [place] [address] January, [facility] [address] [id number] [address] [place] [address], [place] [address] January, [facility] [address] [id number] [address] [place] [address], [place] [address] January, [facility] [address] [id number] [address] [place] [address], [place] [address] January, [facility] [address] [id number] [address] [place] [address], [place] [address] Dec, [facility] [address] [id number] [address] [place] [address], [place] [address] Nov, [facility] [address] [id number] [address] [place] [address], [place] [address] Nov, [facility] [address] [id number] [address] [place] [address], [place] [address] Nov, [facility] [address] [id number] [address] [place] [address], [place] [address] Nov, [facility] [address] [id number] [address] [place] [address], [place] [address] Oct, [facility] [address] [id number] [address] [place] [address], [place] [address] Oct, [facility] [address] [id number] [address] [place] [address], [place] [address] Oct, [facility] [address] [id number] [address] [place] [address], [place] [address] Oct, [facility] [address] [id number] [address] [place] [address], [place] [address] Oct, [facility] [address] [id number] [address] [place] [address], [place] [address] 14 Oct, 2012 [facility] [address] [id number] [address] [place] [address], [place] [address] Oct, [facility] [address] [id number] [address] [place] [address], [place] [address] 19 Sep, 2012 [facility] [address] [id number] [address] [place] [address], [place] [address] 18 Sep, 2012 [facility] [address] [id number] [address] [place] [address], [place] [address] 17 Sep, 2012 [facility] [address] [id number] [address] [place] [address], [place] [address] 17 Sep, 2012 [facility] [address] [id number] [address] [place] [address], [place] [address] 16 Sep, 2012 [facility] [address] [id number] [address] [place] [address], [place] [address] 15 Sep, 2012 [facility] [address] [id number] [address] [place] [address], [place] [address] 14 Sep, 2012 [facility] [address] [id number] [address] [place] [address], [place] [address] 14 Sep, 2012 [facility] [address] [id number] [address] [place] [address], [place] [address] 13 Sep, 2012 [facility] [address] [id number] [address] [place] [address], [place] [address] 13 Sep, 2012 [facility] [address] [id number] [address] [place] [address], [place] [address] 28 Aug, 2012 [facility] [address] [id number] [address] [place] [address], [place] [address] 28 Aug, 2012 [facility] [address] [id number] [address] [place] [address], [place] [address] 20 Aug, 2012 [facility] [address] [id number] [address] [place] [address], [place] [address] 20 Aug, 2012 [facility] [address] [id number] [address] [place] [address], [place] [address] 19 Aug, 2012 [facility] [address] [id number] [address] [place] [address], [place] [address] Aug, [facility] [address] [id number] [address] [place] [address] Aug, [facility] [address] [id number] [address] [place] [address] Nov, [facility] [address] [id number] [address] [place] [address] Oct, [facility] [address] [id number] [address] [place] [address] Oct, [facility] [address] [id number] [address] [place] [address] Sep, [facility] [address] [id number] [address] [place] [address] Sep, [facility] [address] [id number] [address] [place] [address] Sep, [facility] [address] [id number] [address] [place] [address] Sep, [facility] [address] [id number] [address] [place] [address] Sep, [facility] [address] [id number] [address] [place] [address] Sep, [facility] [address] [id number] [address] [place] [address] Sep, IMMUNIZATIONS No Known Immunizations SOCIAL HISTORY Never Assessed REASON FOR VISIT [facility] PLAN OF CARE VITAL SIGNS MEDICATIONS Unknown Medications RESULTS No Results PROCEDURES No Known procedures INSTRUCTIONS MEDICATIONS ADMINISTERED No Known Medications MEDICAL (GENERAL) HISTORY Type Description Date Medical History bipolar Medical History no hx of seizures Surgical History c-sections Hospitalization History x 6 Hospitalization History inpatient psychiatric age 19 dx bipo lar
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
--- OUTSIDE RECORDS SUMMARY | 2020-03-06 04:16 | XMS REPORT ---
Author Author Angelica Medina Doctor Organization [facility] Address Unknown Phone Unavailable Care Team Providers Care Window Caser Name Role Phone Migration, Doctor Unavailable Unavailable PROBLEMS Type Condition ICD9-CM Code KTZ05-HV Code Onset Dates Condition S tatus SNOMED Code Problem Other chronic pain G89.29 Active 8 1183758 Problem Bipolar disorder, curr episode mixed, severe, w/ o psychotic features F31.63 Active 86157784 Problem Posttraumatic stress disorder 309.81 Active 33883174 Problem Urge incontinence N39.41 Active 87 [id number] ALLERGIES No Information ENCOUNTERS Encounter Location Date Diagnosis [place] [address] [address] Nov, High risk medications (not a nticoagulants) long-term use Z79.899 and Bipolar disorder, curr episode mixed, severe, w/o psychotic features F31.63 [place] [address] [address] [place] [id number] [place] [address] Nov, Bipolar disorder, curr episo de mixed, severe, w/o psychotic features F31.63 ; High risk medications (not anticoagulants) long-term use Z79.899 and Screening for diabetes mellitus Z13.1 [place] [address] [address] [place] [id number] [place] [phone] Nov, Low back pain M54.5 [place] [address] [address] [place] [id number] [place] [address] Nov, Screening for diabetes melli tus Z13.1 ; Low back pain M54.5 ; Other chronic pain G89.29 ; Screening for lipid disorders Z13.220 ; Thinning hair L65.9 ; Urge incontinence N39.41 ; Fatigue, unspecified type R53.83 ; High risk medications (not anticoagulants) long-term use Z79.899 and Bipolar disorder, curr episode mixed, severe, w/o psychotic features F31.63 [facility] [address] [facility] [id number] [address] [place] [phone] Oct, Screening for diabetes melli tus Z13.1 ; Low back pain M54.5 ; Other chronic pain G89.29 ; Screening for lipid disorders Z13.220 ; Thinning hair L65.9 ; Urge incontinence N39.41 ; Fatigue, unspecified type R53.83 ; Bipolar disorder, curr episode mixed, severe, w/o psychotic features F31.63 and High risk medications (not anticoagulants) long-term use Z79.899 [facility] [address] [facility] [id number] [address] [place] [phone] Oct, [place] [address] [address] [place] [id number] [address] [place] [phone] Oct, Bipolar disorder, curr episo de mixed, severe, w/o psychotic features F31.63 and High risk medications (not anticoagulants) long-term use Z79.899 [facility] [address] [place] [id number] [address] [place] [phone] Oct, Laceration of floor of mouth , initial encounter S01.512A [facility] [address] [place] [id number] Oct, Laceration of floor of mouth, initial encounter S01.512A [facility] [address] [place] [id number] [address] [place] [address] Dec, [facility] [address] [facility] [id number] [address] [place] [phone] Dec, [place] [address] [address] [place] [id number] [place] [phone] May, [facility] [address] [place] [id number] [place] [phone] May, [facility] [address] [place] [id number] [address] [place] [address] Mar, [facility] [address] [place] [id number] [address] [place] [phone] January, [facility] [address] [id number] [address] [place] [address], [place] [address] January, [facility] [address] [id number] [address] [place] [address], [place] [address] January, [facility] [address] [id number] [address] [place] [address], [place] [address] January, [facility] [address] [id number] [address] [place] [address], [place] [address] Dec, [facility] [address] [id number] [address] [place] [address], [place] [address] Nov, [facility] [address] [id number] [address] [place] [address], [place] [address] Nov, [facility] [address] [id number] [address] [place] [address], [place] [address] Nov, [facility] [address] [id number] [address] [place] [address], [place] [address] Nov, [facility] [address] [id number] [address] [place] [address], [place] [address] Oct, [facility] [address] [id number] [address] [place] [address], [place] [address] Oct, [facility] [address] [id number] [address] [place] [address], [place] [address] Oct, [facility] [address] [id number] [address] [place] [address], [place] [address] Oct, [facility] [address] [id number] [address] [place] [address], [place] [address] 15 Oct, 2012 [facility] [address] [id number] [address] [place] [address], [place] [address] 14 Oct, 2012 [facility] [address] [id number] [address] [place] [address], [place] [address] Oct, [facility] [address] [id number] [address] [place] [address], [place] [address] 19 Sep, 2012 [facility] [address] [id number] [address] [place] [address], [place] [address] 18 Sep, 2012 [facility] [address] [id number] [address] [place] [address], [place] [address] 17 Sep, 2012 [facility] [address] [id number] [address] [place] [address], [place] [address] 17 Sep, 2012 [facility] [address] [id number] [address] [place] [address], [place] [address] 16 Sep, 2012 [facility] [address] [id number] [address] [place] [address], [place] [address] 15 Sep, 2012 [facility] [address] [id number] [address] [place] [address], [place] [address] 14 Sep, 2012 [facility] [address] [id number] [address] [place] [address], [place] [address] 14 Sep, 2012 [facility] [address] [id number] [address] [place] [address], [place] [address] 13 Sep, 2012 [facility] [address] [id number] [address] [place] [address], [place] [address] 13 Sep, 2012 [facility] [address] [id number] [address] [place] [address], [place] [address] 28 Aug, 2012 [facility] [address] [id number] [address] [place] [address], [place] [address] 28 Aug, 2012 [facility] [address] [id number] [address] [place] [address], [place] [address] 20 Aug, 2012 [facility] [address] [id number] [address] [place] [address], [place] [address] 20 Aug, 2012 [facility] [address] [id number] [address] [place] [address], [place] [address] 19 Aug, 2012 [facility] [address] [id number] [address] [place] [address], [place] [address] Aug, [facility] [address] [id number] [address] [place] [phone] Aug, [facility] [address] [id number] [address] [place] [address] Nov, [facility] [address] [id number] [address] [place] [phone] Oct, [facility] [address] [id number] [address] [place] [address] Oct, [facility] [address] [id number] [address] [place] [phone] Sep, [facility] [address] [id number] [address] [place] [address] Sep, [facility] [address] [id number] [address] [place] [address] Sep, [facility] [address] [id number] [address] [place] [phone] Sep, [facility] [address] [id number] [address] [place] [phone] Sep, [facility] [address] [id number] [address] [place] [phone] Sep, [facility] [address] [id number] [address] [place] [phone] Sep, IMMUNIZATIONS No Known Immunizations SOCIAL HISTORY Never Assessed REASON FOR VISIT [facility] [place] PLAN OF CARE VITAL SIGNS MEDICATIONS Unknown Medications RESULTS No Results PROCEDURES No Known procedures INSTRUCTIONS MEDICATIONS ADMINISTERED No Known Medications MEDICAL (GENERAL) HISTORY Type Description Date Medical History bipolar Medical History no hx of seizures Surgical History c-sections Hospitalization History x 6 Hospitalization History inpatient psychiatric age 19 dx bipo lar
--- OUTSIDE RECORDS SUMMARY | 2020-03-06 04:16 | XMS REPORT ---
Author Author Angelica Medina Doctor Organization [facility] Address Unknown Phone Unavailable Care Team Providers Care Roustabout Hand Name Role Phone Migration, Doctor Unavailable Unavailable PROBLEMS Type Condition ICD9-CM Code OHV47-CR Code Onset Dates Condition S tatus SNOMED Code Problem Other chronic pain G89.29 Active 8 2841870 Problem Bipolar disorder, curr episode mixed, severe, w/ o psychotic features F31.63 Active 58034165 Problem Posttraumatic stress disorder 309.81 Active 02118830 Problem Urge incontinence N39.41 Active 87 748838 ALLERGIES No Information ENCOUNTERS Encounter Location Date Diagnosis [place] [address] [phone] Nov, High risk medications (not a nticoagulants) long-term use Z79.899 and Bipolar disorder, curr episode mixed, severe, w/o psychotic features F31.63 [place] [address] [address] [place] [id number] [place] [phone] Nov, Bipolar disorder, curr episo de mixed, severe, w/o psychotic features F31.63 ; High risk medications (not anticoagulants) long-term use Z79.899 and Screening for diabetes mellitus Z13.1 [place] [address] [address] [place] [id number] [place] [phone] Nov, Low back pain M54.5 [place] [address] [address] [place] [id number] [place] [phone] Nov, Screening for diabetes melli tus Z13.1 ; Low back pain M54.5 ; Other chronic pain G89.29 ; Screening for lipid disorders Z13.220 ; Thinning hair L65.9 ; Urge incontinence N39.41 ; Fatigue, unspecified type R53.83 ; High risk medications (not anticoagulants) long-term use Z79.899 and Bipolar disorder, curr episode mixed, severe, w/o psychotic features F31.63 [facility] [address] [facility] [id number] [address] [place] [phone] Oct, Screening for diabetes melli tus Z13.1 ; Low back pain M54.5 ; Other chronic pain G89.29 ; Screening for lipid disorders Z13.220 ; Thinning hair L65.9 ; Urge incontinence N39.41 ; Fatigue, unspecified type R53.83 ; Bipolar disorder, curr episode mixed, severe, w/o psychotic features F31.63 and High risk medications (not anticoagulants) long-term use Z79.899 [facility] [address] [facility] [id number] [address] [place] [id number] Oct, [place] [address] [address] [place] [id number] [address] [place] [phone] Oct, Bipolar disorder, curr episo de mixed, severe, w/o psychotic features F31.63 and High risk medications (not anticoagulants) long-term use Z79.899 [facility] [address] [place] [id number] [address] [place] [phone] Oct, Laceration of floor of mouth , initial encounter S01.512A [facility] [address] [place], [place] [id number] Oct, Laceration of floor of mouth, initial encounter S01.512A [facility] [address] [place] [id number] [address] [place] [phone] Dec, [facility] [address] [facility] [id number] [address] [place] [phone] Dec, [place] [address] [address] [place] [id number] [address] [place] [phone] May, [facility] [address] [place] [id number] [address] [place] [phone] May, [facility] [address] [place] [id number] [address] [place] [phone] Mar, [facility] [address] [place] [id number] [address] [place] [phone] January, [facility] [address] [id number] [address] [place] [address], [place] [phone] January, [facility] [address] [id number] [address] [place] [address], [place] [id number] January, [facility] [address] [id number] [address] [place] [address], [place] [phone] January, [facility] [address] [id number] [address] [place] [address], [place] [phone] Dec, [facility] [address] [id number] [address] [place] [address], [place] [id number] Nov, [facility] [address] [id number] [address] [place] [address], [place] [phone] Nov, [facility] [address] [id number] [address] [place] [address], [place] [phone] Nov, [facility] [address] [id number] [address] [place] [address], [place] [id number] Nov, [facility] [address] [id number] [address] [place] [address], [place] [id number] Oct, [facility] [address] [id number] [address] [place] [address], [place] [phone] Oct, [facility] [address] [id number] [address] [place] [address], [place] [phone] Oct, [facility] [address] [id number] [address] [place] [address], [place] [phone] Oct, [facility] [address] [id number] [address] [place] [address], [place] [id number] 15 Oct, 2012 [facility] [address] [id number] [address] [place] [address], [place] [id number] 14 Oct, 2012 [facility] [address] [id number] [address] [place] [address], [place] [id number] Oct, [facility] [address] [id number] [address] [place] [address], [place] [id number] 19 Sep, 2012 [facility] [address] [id number] [address] [place] [address], [place] [id number] 18 Sep, 2012 [facility] [address] [id number] [address] [place] [address], [place] [id number] 17 Sep, 2012 [facility] [address] [id number] [address] [place] [address], [place] [id number] 17 Sep, 2012 [facility] [address] [id number] [address] [place] [address], [place] [id number] 16 Sep, 2012 [facility] [address] [id number] [address] [place] [address], [place] [id number] 15 Sep, 2012 [facility] [address] [id number] [address] [place] [address], [place] [id number] 14 Sep, 2012 [facility] [address] [id number] [address] [place] [address], [place] [id number] 14 Sep, 2012 [facility] [address] [id number] [address] [place] [address], [place] [id number] 13 Sep, 2012 [facility] [address] [id number] [address] [place] [address], [place] [id number] 13 Sep, 2012 [facility] [address] [id number] [address] [place] [address], [place] [id number] 28 Aug, 2012 [facility] [address] [id number] [address] [place] [address], [place] [phone] 28 Aug, 2012 [facility] [address] [id number] [address] [place] [address], [place] [id number] 20 Aug, 2012 [facility] [address] [id number] [address] [place] [address], [place] [id number] 20 Aug, 2012 [facility] [address] [id number] [address] [place] [address], [place] [id number] 19 Aug, 2012 [facility] [address] [id number] [address] [place] [address], [place] [phone] Aug, [facility] [address] [id number] [address] [place] [phone] Aug, [facility] [address] [id number] [address] [place] [phone] Nov, [facility] [address] [id number] [address] [place] [phone] Oct, [facility] [address] [id number] [address] [place] [phone] Oct, [facility] [address] [id number] [address] [place] [phone] Sep, [facility] [address] [id number] [address] [place] [phone] Sep, [facility] [address] [id number] [address] [place] [phone] Sep, [facility] [address] [id number] [address] [place] [phone] Sep, [facility] [address] [id number] [address] [place] [phone] Sep, [facility] [address] [id number] [address] [place] [phone] Sep, [facility] [address] [id number] [address] [place] [phone] Sep, IMMUNIZATIONS No Known Immunizations SOCIAL HISTORY Never Assessed REASON FOR VISIT [facility] PLAN OF CARE VITAL SIGNS MEDICATIONS Unknown Medications RESULTS No Results PROCEDURES No Known procedures INSTRUCTIONS MEDICATIONS ADMINISTERED No Known Medications MEDICAL (GENERAL) HISTORY Type Description Date Medical History bipolar Medical History no hx of seizures Surgical History c-sections Hospitalization History x 6 Hospitalization History inpatient psychiatric age 19 dx bipo lar
[2020-03-06] MEDS ORDERED: fentaNYL INJECTION 100 MCG/2 ML AMP IVP ONE (04:30)
[2020-03-06 04:32] LABS: BASOPHILS % (AUTO) 0 % (0-10); EOSINOPHILS # (AUTO) 0.3 10^3/uL (0.0-0.3); EOSINOPHILS % (AUTO) 4 % (0-10); HEMATOCRIT 38 % (35-52); HEMOGLOBIN 12.8 G/DL (11.5-16.0); LYMPHOCYTES # (AUTO) 2.3 X 10^3 (1.0-4.0); LYMPHOCYTES % (AUTO) 36 % (12-44); MEAN CORPUSCULAR HEMOGLOBIN 31 PG (25-34); MEAN CORPUSCULAR HGB CONC 34 G/DL (32-36); MEAN CORPUSCULAR VOLUME 93 FL (80-99); MEAN PLATELET VOLUME 9.7 FL (7.4-10.4); MONOCYTES # (AUTO) 0.4 X 10^3 (0.0-1.0); MONOCYTES % (AUTO) 6 % (0-12); NEUTROPHILS # (AUTO) 3.4 X 10^3 (1.8-7.8); NEUTROPHILS % (AUTO) 53 % (42-75); PLATELET COUNT 325 10^3/uL (130-400); RED CELL DISTRIBUTION WIDTH 13.1 % (10.0-14.5); WHITE BLOOD COUNT 6.4 10^3/uL (4.3-11.0)
[2020-03-06 04:43] LABS: ALBUMIN 4.5 GM/DL (3.2-4.5)
[2020-03-06 04:44] LABS: CHLORIDE 109 MMOL/L (98-107); POTASSIUM 3.5 MMOL/L (3.6-5.0); SODIUM 141 MMOL/L (135-145)
[2020-03-06 04:45] LABS: CALCIUM 9.1 MG/DL (8.5-10.1)
[2020-03-06 04:46] LABS: GLUCOSE 104 MG/DL (70-105); TOTAL PROTEIN 7.5 GM/DL (6.4-8.2)
[2020-03-06 04:47] LABS: CARBON DIOXIDE 20 MMOL/L (21-32)
[2020-03-06 04:48] LABS: BILIRUBIN,TOTAL 0.3 MG/DL (0.1-1.0)
[2020-03-06 04:49] LABS: ALKALINE PHOSPHATASE 100 U/L (40-136)
[2020-03-06 04:50] LABS: CREATININE SERUM 0.79 MG/DL (0.60-1.30); GFR ESTIMATED > 60
[2020-03-06 04:51] LABS: BUN/CREATININE RATIO 6
[2020-03-06 04:53] LABS: ALANINE AMINOTRANSFERASE 13 U/L (0-55)
[2020-03-06] MEDS ORDERED: HYDROcodone/APAP 5 MG/325 MG (LORTAB) TAB PO ONE (05:15)
[2020-03-06] MEDS ORDERED: KETOROLAC 30 MG/ML VIAL IVP ONE (05:15)
[2020-03-06] MEDS ORDERED: HYDR-83 PO (05:41)
--- NOTE | 2020-03-06 05:43 | ED Fall/Injury ---
General Chief Complaint: Upper Extremity Stated Complaint: FALL,RT SHOULDER & ARM PAIN Nursing Triage Note: PATIENT STATES THAT SHE WENT OUT ONTO THE PORCH TO SMOKE AND FELL OFF OF THE PORCH. SHE C/O OF RIGHT SHOULDER PAIN AND STATES THAT IT "HURTS WHEN I BREATHE IN". SHE ALSO ADMITS TO DRINKING ALCOHOL TONIGHT AND SAYS THAT SHE DRANK A "40 OZ LEAH'S AND A COUPLE OF SHOTS OF VODKA". Source: patient Exam Limitations: no limitations History of Present Illness Date Seen by Provider: Mar 06, 2020 Time Seen by Provider: 04:10 Initial Comments This 39-year-old woman presents to emergency room with severe pain in her right shoulder and right upper chest after falling. She stepped off a porch and then fell backward onto her right side. She has had several alcoholic drinks tonight. She reports pain with movement of the shoulder and with breathing. There was no injury to her head. She is in distress and crying, holding her right arm with the left arm. Allergies and Home Medications Allergies Coded Allergies: acetaminophen (Verified Allergy, Unknown, 07/06/07) oxycodone (Verified Allergy, Unknown, 07/06/07) Home Medications Calcium Carbonate/Vitamin D3 1 Each Tablet, 1 EACH PO DAILY, (Reported) Ferrous Sulfate 325 Mg Tablet, 65 MG PO BID, (Reported) Hydrocodone/Acetaminophen 1 Each Tablet, 1 EACH PO Q4H PRN for PAIN-MODERATE (5- 7) Prescribed by: MATT BISHOP on 03/06/20 0542 Ondansetron 4 Mg Tab.rapdis, 4 MG PO Q6H PRN for NAUSEA/VOMITING Prescribed by: SHERLEY PATRICK on 04/29/182023 Ondansetron 4 Mg Tab.rapdis, 4 MG SL Q4H PRN for NAUSEA/VOMITING-1ST LINE Prescribed by: KATERINA RAMON on 05/01/181813 Vits W-Ca,Fe,Fa(<1MG) 1 Each Tablet, 1 TAB PO DAILY, (Reported) Patient Home Medication List Home Medication List Reviewed: Yes Review of Systems Review of Systems Constitutional: see HPI Eyes: No Symptoms Reported Ears, Nose, Mouth, Throat: no symptoms reported Respiratory: no symptoms reported Cardiovascular: no symptoms reported Gastrointestinal: no symptoms reported Genitourinary: no symptoms reported : No Musculoskeletal: see HPI Skin: no symptoms reported Psychiatric/Neurological: See HPI Past Nojqtmt-Xxhaax-Drcpco Hx Past Med/Social Hx: Reviewed Nursing Past Med/Soc Hx Patient Social History Alcohol Use: Occasionally Uses Number of Drinks Today: 5 Alcohol Beverage of Choice: Beer, Vodka Recreational Drug Use: No (DENIES) Drug of Choice: HX: MJ Type Used: Cigarettes Recent Foreign Travel: No Contact w/Someone Who Travel: No Recent Infectious Disease Expo: No Physical Abuse: No Sexual Abuse: No Mistreated: No Fear: No Immunizations Up To Date Tetanus Booster (TDap): Less than 5yrs Date of Influenza Vaccine: Aug 02, 2012 Past Medical History Surgeries: Yes (C/S X3, INCISIONAL HERNIA REPAIR X4, DXLS, TUBES IN EARS, RSO) Abdominal, Section, Ear Surgery, Oophorectomy, Tubal Ligation Respiratory: No Cardiac: No Neurological: No : No Last Menstrual Period: February 24, 2020 Reproductive Disorders: Yes (ECTOPIC X2) Female 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 0.0oz. 58.297102kd; 23.00 BMI Method:Stated General Appearance: WD/WN, moderate distress HEENT: PERRL/EOMI, normal ENT inspection Neck: normal inspection Cardiovascular: regular rate, rhythm, no edema, no murmur Respiratory: lungs clear, normal breath sounds, no respiratory distress, other (Right upper lateral chest wall tender to palpation) Gastrointestinal: non tender, soft Extremities: normal inspection, no pedal edema, other (Tenderness over the proximal right shoulder. 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 II-XII nml as tested, no motor/sensory deficits, alert, normal mood/affect, oriented x 3 Skin: normal color, warm/dry Todd Coma Score Best Eye Response: (4) Open Spontaneously Best Verbal Response: (5) Oriented Best Motor Response: (6) Obeys Commands Todd Total: 15 Progress/Results/Core Measures Results/Orders Lab Results Laboratory Tests Test 03/06/20 04:25 Range/Units White Blood Count 6.4 4.3-11.0 10^3/uL Red Blood Count 4.10 L 4.35-5.85 10^6/uL Hemoglobin 12.8 11.5-16.0 G/DL Hematocrit 38 35-52 % Mean Corpuscular Volume 93 80-99 FL Mean Corpuscular Hemoglobin 31 25-34 PG Mean Corpuscular Hemoglobin Concent 34 32-36 G/DL Red Cell Distribution Width 13.1 10.0-14.5 % Platelet Count 325 130-400 10^3/uL Mean Platelet Volume 9.7 7.4-10.4 FL Neutrophils (%) (Auto) 53 42-75 % Lymphocytes (%) (Auto) 36 12-44 % Monocytes (%) (Auto) 6 0-12 % Eosinophils (%) (Auto) 4 0-10 % Basophils (%) (Auto) 0 0-10 % Neutrophils # (Auto) 3.4 1.8-7.8 X 10^3 Lymphocytes # (Auto) 2.3 1.0-4.0 X 10^3 Monocytes # (Auto) 0.4 0.0-1.0 X 10^3 Eosinophils # (Auto) 0.3 0.0-0.3 10^3/uL Basophils # (Auto) 0.0 0.0-0.1 10^3/uL Sodium Level 141 135-145 MMOL/L Potassium Level 3.5 L 3.6-5.0 MMOL/L Chloride Level 109 H 98-107 MMOL/L Carbon Dioxide Level 20 L 21-32 MMOL/L Anion Gap 12 5-14 MMOL/L Blood Urea Nitrogen 5 L 7-18 MG/DL Creatinine 0.79 0.60-1.30 MG/DL Estimat Glomerular Filtration Rate > 60 BUN/Creatinine Ratio 6 Glucose Level 104 70-105 MG/DL Calcium Level 9.1 8.5-10.1 MG/DL Corrected Calcium 8.7 8.5-10.1 MG/DL Total Bilirubin 0.3 0.1-1.0 MG/DL Aspartate Amino Transf (AST/SGOT) 21 5-34 U/L Alanine Aminotransferase (ALT/SGPT) 13 0-55 U/L Alkaline Phosphatase 100 40-136 U/L Total Protein 7.5 6.4-8.2 GM/DL Albumin 4.5 3.2-4.5 GM/DL Serum Alcohol 115 H <10 MG/DL My Orders Orders - MATT JON MD Ct Chest Wo (03/06/20 04:20) Fentanyl Injection (Sublimaze Injection (03/06/20 04:30) Alcohol (03/06/20 04:20) Cbc With Automated Diff (03/06/20 04:20) Comprehensive Metabolic Panel (03/06/20 04:20) Ketorolac Injection (Toradol Injection) (03/06/20 05:15) Hydrocodone/Apap 5/325 Tablet (Lortab 5 (03/06/20 05:15) Medications Given in ED Current Medications Medications Dose Ordered Sig/Marlen Route Start Time Stop Time Status Last Admin Dose Admin Acetaminophen/ Hydrocodone Bitart 1 tab ONCE ONCE PO 03/06/20 05:15 03/06/20 05:16 DC 03/06/20 05:21 1 TAB Fentanyl Citrate 75 mcg ONCE ONCE IVP 03/06/20 04:30 03/06/20 04:32 DC 03/06/20 04:28 75 MCG Ketorolac Tromethamine 15 mg ONCE ONCE IVP 03/06/20 05:15 03/06/20 05:16 DC 03/06/20 05:21 15 MG Vital Signs/I&O 03/06/20 03/06/20 04:10 05:46 Temp 36.4 36.7 Pulse 111 99 Resp 22 18 B/P (MAP) 114/87 (96) 123/90 Pulse Ox 96 98 O2 Delivery Room Air Room Air Blood Pressure Mean: 96 Progress Progress Note : Progress Note Due to pain in both the shoulder and right upper chest, as well as pain with inspiration, CT of the chest was obtained including the right shoulder. A tiny fracture of the right third rib was identified. No other injuries were evident on CT. I did advise patient she may have soft tissue injury of the shoulder including rotator cuff injury. Sling was provided for comfort. Hydrocodone and Toradol were given for pain. Diagnostic Imaging Diagonstic Imaging: CT Plain Films/CT/US/NM/MRI: chest Comments CT chest without contrast viewed by me. [employer] report reviewed. There is a small nondisplaced fracture of the lateral right third rib. No injury to the shoulder was identified on CT. Departure Impression Primary Impression: Right rib fracture Qualified Codes: S22.31XA - Fracture of one rib, right side, initial encounter for closed fracture Additional Impression: Fall on same level Qualified Codes: W18.30XA - Fall on same level, unspecified, initial encounter Disposition: HOME, SELF-CARE Condition: Improved Departure-Patient Inst. Decision time for Depature: 05:40 Referrals: [facility] (PCP) Primary Care Physician TOMA HARLEY (Family) Primary Care Physician Patient Instructions: Rib Fracture (DC) Add. Discharge Instructions: Use your pain medication as prescribed. Do not use alcohol with hydrocodone. You may ice affected areas in 20 minute intervals to reduce pain and swelling. Exercise deep breathing several times per hour to help prevent pneumonia. Use the sling for comfort as needed. If you have persistent shoulder pain, follow-up with your primary care provider for reassessment. You may have soft tissue injury such as a rotator cuff tear. Return to care if you have any further problems or concerns. All discharge instructions reviewed with patient and/or family. Voiced understanding. Scripts Hydrocodone/Acetaminophen (Hydrocodone-Acetamin 5-325 mg) 1 Each Tablet 1 EACH PO Q4H PRN for PAIN-MODERATE (5-7), #14 TAB Prov: MATT JON MD 03/06/20 Copy Copies To 1: YAHIR LOVING MD, JOSHUA T MD Mar 06, 2020 05:43
[2020-03-06 05:46] VITALS: BP 123/90
--- NOTE | 2020-03-06 05:57 | Diagnostic Imaging Report ---
PROCEDURE: CT chest without contrast. TECHNIQUE: Multiple contiguous axial images were obtained through the chest without the use of intravenous contrast. Auto Exposure Controls were utilized during the CT exam to meet ALARA standards for radiation dose reduction. INDICATION: Injury, chest pain. There are no prior CT chest examinations available for comparison. FINDINGS: The plain film examination of the chest performed on 06/15/2015 failed to show any sign of an acute cardiopulmonary abnormality. On this exam, there is a minimally displaced fracture of the lateral aspect of the right 3rd rib. No other acute bony abnormality is appreciated. There is no sign of an injury to the underlying right lung. Specifically, there is no evidence for a pneumothorax or a contusion. The lungs are generally clear and well aerated. There is no pleural effusion identified. The heart size is within normal limits. There are no coronary calcifications evident. The aorta is not abnormally dilated. There is no obvious mediastinal or hilar adenopathy. The thyroid gland where visualized is unremarkable. There is no definite breast mass. The sections through the upper abdomen failed to show any sign of an acute abnormality. The gallbladder is surgically absent. IMPRESSION: 1. There is a minimally displaced fracture of the lateral aspect of the right 3rd rib. There is no acute bony abnormality noted otherwise. There is no sign of an acute cardiopulmonary abnormality either. Dictated by: Dictated on workstation # [id number]
== END 2020-03-06 05:54 | disposition home or self-care (01) ==
LOC: EDUNIT# 04:04 → ER 04:08
DX: S22.31XA Fracture of one rib, right side, initial encounter for closed fracture (principal); F10.20 Alcohol dependence, uncomplicated; R40.2142 Coma scale, eyes open, spontaneous, at arrival to emergency department; R40.2252 Coma scale, best verbal response, oriented, at arrival to emergency department; R40.2362 Coma scale, best motor response, obeys commands, at arrival to emergency department; Z88.5 Allergy status to narcotic agent; Z98.51 Tubal ligation status; W18.30XA Fall on same level, unspecified, initial encounter; Y90.5 Blood alcohol level of 100-119 mg/100 ml
CPT/HCPCS: 36415; 71250; 80053; 80320; 85025

== ENCOUNTER 2020-03-15 09:19 | Emergency (ER) | payer SELFPAY ==
[~2020-03-15] VITALS: Ht 170 cm; Wt 67.0 kg
[~2020-03-15 09:19] MED LIST changes: +HYDR-83 PO
--- NOTE | 2020-03-15 10:48 | ED Upper Extremity ---
General Chief Complaint: Trauma-Non Activation Stated Complaint: R SHOULDER PAIN Nursing Triage Note: ARRIVED VIA AMB WEARING A ARM SLING ON THE RIGHT ARM. COMPLAINS OF RIGHT SHOULDER/COLLAR BONE PAIN. STATES SHE SLIPPED LAST WEEK AND HAS A KNOWN BROKEN RIB ON THE RIGHT. Nursing Sepsis Screen: No Definite Risk Source: patient Exam Limitations: no limitations History of Present Illness Date Seen by Provider: Mar 15, 2020 Time Seen by Provider: 10:45 Initial Comments fell last week, has known right rib fracture. C/o pain in right shoulder. Onset: last week Severity: moderate Pain/Injury Location: right shoulder Method of Injury: fell Modifying Factors: Worse With Movement Allergies and Home Medications Allergies Coded Allergies: acetaminophen (Verified Allergy, Unknown, 07/06/07) oxycodone (Verified Allergy, Unknown, 07/06/07) Home Medications Calcium Carbonate/Vitamin D3 1 Each Tablet, 1 EACH PO DAILY, (Reported) Ferrous Sulfate 325 Mg Tablet, 65 MG PO BID, (Reported) Hydrocodone/Acetaminophen 1 Each Tablet, 1 EACH PO Q4H PRN for PAIN-MODERATE (5- 7) Prescribed by: MATT BISHOP on 03/06/20 0542 Ondansetron 4 Mg Tab.rapdis, 4 MG PO Q6H PRN for NAUSEA/VOMITING Prescribed by: SHERLEY PATRICK on 04/29/182023 Ondansetron 4 Mg Tab.rapdis, 4 MG SL Q4H PRN for NAUSEA/VOMITING-1ST LINE Prescribed by: KATERINA RAMON on 05/01/184 Vits W-Ca,Fe,Fa(<1MG) 1 Each Tablet, 1 TAB PO DAILY, (Reported) Patient Home Medication List Home Medication List Reviewed: Yes Review of Systems Constitutional: see HPI, diaphoresis Respiratory: no symptoms reported Cardiovascular: no symptoms reported Genitourinary: no symptoms reported Musculoskeletal: see HPI Skin: no symptoms reported Past Vsfneox-Beoxvn-Vxciks Hx Patient Social History Alcohol Use: Occasionally Uses Alcohol Beverage of Choice: Beer, Vodka Recreational Drug Use: No Drug of Choice: HX: MJ Smoking Status: Current Everyday Smoker Type Used: Cigarettes Recent Foreign Travel: No Contact w/Someone Who Travel: No Recent Infectious Disease Expo: No Immunizations Up To Date Tetanus Booster (TDap): Less than 5yrs Date of Influenza Vaccine: Aug 02, 2012 Past Medical History Surgeries: Yes (C/S X3, INCISIONAL HERNIA REPAIR X4, DXLS, TUBES IN EARS, RSO) Abdominal, Section, Ear Surgery, Oophorectomy, Tubal Ligation Respiratory: No Cardiac: No Neurological: No Reproductive Disorders: Yes (ECTOPIC X2) Female Reproductive Disorders: Denies [employer]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 0.0oz. [id number]; 23.00 BMI Method:Stated General Appearance: WD/WN, no apparent distress Neck: non-tender, full range of motion Respiratory: no respiratory distress, no accessory muscle use Gastrointestinal: normal bowel sounds, non tender Shoulder: normal inspection, limited ROM, pain (wearing a sling on arrival), swelling Elbow/Forearm: normal inspection, non-tender Wrist: Yes normal inspection, Yes non-tender Neurologic/Psychiatric: alert, normal mood/affect, oriented x 3 Skin: normal color, warm/dry Progress/Results/Core Measures Results/Orders My Orders Orders - FRANCISCO FAULKNER APRN Shoulder, Right, 3 Views (03/15/20 10:52) Hydrocodone/Apap 5/325 Tablet (Lortab 5 (03/15/20 11:00) Ibuprofen Tablet (Motrin Tablet) (03/15/20 11:00) Medications Given in ED Current Medications Medications Dose Ordered Sig/Marlen Route Start Time Stop Time Status Last Admin Dose Admin Acetaminophen/ Hydrocodone Bitart 1 tab ONCE ONCE PO 03/15/20 11:00 03/15/20 11:01 DC 03/15/20 11:03 1 TAB Ibuprofen 800 mg ONCE ONCE PO 03/15/20 11:00 03/15/20 11:01 DC 03/15/20 11:04 800 MG Vital Signs/I&O 03/15/20 09:25 Temp 36.9 Pulse 78 Resp 16 B/P (MAP) 116/89 (98) Blood Pressure Mean: 98 Departure Communication (Admissions) She states she has a prescription for hydrocodone at [facility] but cannot fill it until tomorrow because of finances. Impression Primary Impression: Separation of right acromioclavicular joint Qualified Codes: S43.101A - Unspecified dislocation of right acromioclavicular joint, initial encounter Disposition: 01 HOME, SELF-CARE Condition: Stable Departure-Patient Inst. Decision time for Depature: 11:31 Referrals: YAHIR LOVING MD (PCP/Family) Primary Care Physician Patient Instructions: Shoulder Add. Discharge Instructions: 1. Continue with the sling. Ice pack 30 minutes at a time several times a day to the right shoulder. Follow-up with Dr. Loving. All discharge instructions reviewed with patient and/or family. Voiced understanding. FRANCISCO FAULKNER DEBEAKER Mar 15, 2020 10:48
[2020-03-15] MEDS ORDERED: HYDROcodone/APAP 5 MG/325 MG (LORTAB) TAB PO ONE (11:00)
[2020-03-15] MEDS ORDERED: IBUPROFEN 800 MG (MOTRIN) TAB PO ONE (11:00)
--- NOTE | 2020-03-15 11:27 | Diagnostic Imaging Report ---
Indication: Fall, right shoulder pain. Time of Exam 11:20 AM 3 views right shoulder were obtained. Glenohumeral alignment is normal. The distal clavicle is slightly cephalad to the acromion, raising question of AC separation. No fractures are seen. Acromiohumeral space is normal. IMPRESSION: Questionable AC separation. If this is of clinical concern, nonweightbearing and weightbearing views may be useful for further evaluation. No fractures are detected. Dictated by: Dictated on workstation # [id number]
[2020-03-15 11:35] VITALS: BP 116/89
== END 2020-03-15 11:35 | disposition home or self-care (01) ==
LOC: EDUNIT# 09:19 → ER 09:21
DX: S43.101A Unspecified dislocation of right acromioclavicular joint, initial encounter (principal); F17.210 Nicotine dependence, cigarettes, uncomplicated; Z88.5 Allergy status to narcotic agent; Z88.6 Allergy status to analgesic agent; W01.0XXA Fall on same level from slipping, tripping and stumbling without subsequent striking against object, initial encounter
CPT/HCPCS: 73030

== ENCOUNTER 2020-05-14 12:55 | Inpatient (IN) | payer SELFPAY ==
[~2020-05-14] VITALS: Ht 170.1 cm; Wt 71.8 kg
[~2020-05-14 12:55] MED LIST changes: +HYDR-3812 PO; -HYDR-83 PO
[2020-05-14] MEDS ORDERED: NS IV 1000 ML 1,000 ML IV SCH ×2 (13:31)
--- NOTE | 2020-05-14 13:36 | ED Abdominal Pain ---
General Stated Complaint: FEVER;BODY ACHES;ABD PAIN Source of Information: Patient Exam Limitations: No Limitations History of Present Illness Date Seen by Provider: May 14, 2020 Time Seen by Provider: 13:00 Initial Comments Patient arrives ER by private conveyance with chief complaint the past for 5 days she's had progressively worsening right flank pain, 10 out of 10 and fever Tmax 102 and her pain radiates down to her right lower quadrant and right upper quadrant. She has had no dysuria. She has had nausea with vomiting. Today she started having all over body aches. No cough or shortness of air. No wheezing. She's had 5 C-sections, cholecystectomy, tubal ligation and a mesh repair of hernia at the right edge of the scars. Her primary care doctor is at [facility]. She has been using Tylenol and ibuprofen for her pain and fevers. Her last dose of Tylenol was about 2-1/2 hours ago. She has not seen anybody yet for this. She is not on any antibiotics. She does not have any other significant medical history. No known sick contacts. No trauma. Allergies and Home Medications Allergies Coded Allergies: acetaminophen (Verified Allergy, Unknown, 07/06/07) oxycodone (Verified Allergy, Unknown, 07/06/07) Home Medications Calcium Carbonate/Vitamin D3 1 Each Tablet, 1 EACH PO DAILY, (Reported) Ferrous Sulfate 325 Mg Tablet, 65 MG PO BID, (Reported) Hydrocodone/Acetaminophen 1 Each Tablet, 1 EACH PO Q4H PRN for PAIN-MODERATE (5- 7) Prescribed by: MATT BISHOP on 03/06/20 0542 Ondansetron 4 Mg Tab.rapdis, 4 MG PO Q6H PRN for NAUSEA/VOMITING Prescribed by: SHERLEY PATRICK on 04/29/182023 Ondansetron 4 Mg Tab.rapdis, 4 MG SL Q4H PRN for NAUSEA/VOMITING-1ST LINE Prescribed by: KATERINA RAMON on 05/01/181813 Vits W-Ca,Fe,Fa(<1MG) 1 Each Tablet, 1 TAB PO DAILY, (Reported) Patient Home Medication List Home Medication List Reviewed: Yes Review of Systems Review of Systems Constitutional: No chills, No diaphoresis EENTM: No Blurred Vision, No Double Vision Respiratory: Denies Cough, Denies Shortness of Air Cardiovascular: Denies Chest Pain, Denies Lightheadedness Gastrointestinal: Abdominal Pain; Denies Constipated (last bowel movement was yesterday. Normal, formed.), Denies Diarrhea; Nausea, Poor Fluid Intake, Vomiting Musculoskeletal: No back pain, No joint pain Skin: No pruritus, No rash Psychiatric/Neurological: Denies Anxiety, Denies Depressed, Denies Headache All Other Systems Reviewed Negative Unless Noted: Yes Past Cysrumi-Nbqqqi-Dvdikw Hx Patient Social History Alcohol Use: Rarely Uses Alcohol Beverage of Choice: Beer, Vodka Recreational Drug Use: Yes Drug of Choice: HX: MJ Smoking Status: Current Everyday Smoker Type Used: Cigarettes (half pack per day) Immunizations Up To Date Tetanus Booster (TDap): Less than 5yrs Date of Influenza Vaccine: Aug 02, 2012 Past Medical History Surgeries: Yes (C/S X3, INCISIONAL HERNIA REPAIR X4, DXLS, TUBES IN EARS, RSO) Abdominal, Section, Ear Surgery, Oophorectomy, Tubal Ligation Respiratory: No Cardiac: No Neurological: No Reproductive Disorders: Yes (ECTOPIC X2) Female Reproductive Disorders: Denies CAN SLIDER History: Tubal Ligation Sexually Transmitted Disease: No HIV/AIDS: No Gastrointestinal: Yes Gastroesophageal Reflux Musculoskeletal: Yes (HERNIATED DISC) Endocrine: No Cancer: No Psychosocial: Yes Bipolar Integumentary: Yes Psoriasis Blood Disorders: Yes (anemia) Physical Exam Vital Signs Vital Signs - First Documented 05/14/20 12:55 Temp 39.6 Pulse 116 Resp 20 B/P (MAP) 107/67 (80) Pulse Ox 97 O2 Delivery Room Air Capillary Refill : Height/Weight/BMI Height: 5'7.00" Weight: 130lbs. 0.0oz. 58.568228vb; 23.00 BMI Method:Stated General Appearance: WD/WN HEENT: PERRL/EOMI; No pharynx normal (dry oral mucosa) Neck: full range of motion, supple, normal inspection Respiratory: chest non-tender, lungs clear, normal breath sounds, no respiratory distress, no accessory muscle use Cardiovascular: normal peripheral pulses, regular rate, rhythm, no edema, tachycardia Peripheral Pulses: 2+ Radial Pulses (R), 2+ Radial Pulses (L) Gastrointestinal: normal bowel sounds, non tender, soft Extremities: normal range of motion, non-tender, normal inspection, normal capillary refill Neurologic/Psychiatric: alert, normal mood/affect, oriented x 3 Skin: normal color, warm/dry Focused Exam Lactate Level 05/14/20 13:25: Lactic Acid Level 1.07 Lactic Acid Level Laboratory Tests Test 05/14/20 13:25 Lactic Acid Level 1.07 MMOL/L (0.50-2.00) Progress/Results/Core Measures Results/Orders Lab Results Laboratory Tests Test 05/14/20 13:19 05/14/20 13:25 Range/Units Urine Color YELLOW Urine Clarity CLEAR Urine pH 6.0 5-9 Urine Specific [place] 1.010 L 1.016-1.022 Urine Protein 1+ H NEGATIVE Urine Glucose (UA) NEGATIVE NEGATIVE Urine Ketones NEGATIVE NEGATIVE Urine Nitrite NEGATIVE NEGATIVE Urine Bilirubin NEGATIVE NEGATIVE Urine Urobilinogen 0.2 < = 1.0 MG/DL Urine Leukocyte Esterase 3+ H NEGATIVE Urine RBC (Auto) 2+ H NEGATIVE Urine RBC 2-5 H /HPF Urine WBC >100 H /HPF Urine Crystals NONE /LPF Urine Bacteria FEW H /HPF Urine Casts NONE /LPF Urine Mucus NEGATIVE /LPF Urine Culture Indicated YES Urine Test NEGATIVE NEGATIVE White Blood Count 11.3 H 4.3-11.0 10^3/uL Red Blood Count 3.69 L 4.35-5.85 10^6/uL Hemoglobin 11.3 L 11.5-16.0 G/DL Hematocrit 35 35-52 % Mean Corpuscular Volume 94 80-99 FL Mean Corpuscular Hemoglobin 31 25-34 PG Mean Corpuscular Hemoglobin Concent 33 32-36 G/DL Red Cell Distribution Width 12.4 10.0-14.5 % Platelet Count 249 130-400 10^3/uL Mean Platelet Volume 10.3 7.4-10.4 FL Neutrophils (%) (Auto) 77 H 42-75 % Lymphocytes (%) (Auto) 11 L 12-44 % Monocytes (%) (Auto) 12 0-12 % Eosinophils (%) (Auto) 0 0-10 % Basophils (%) (Auto) 0 0-10 % Neutrophils # (Auto) 8.6 H 1.8-7.8 X 10^3 Lymphocytes # (Auto) 1.3 1.0-4.0 X 10^3 Monocytes # (Auto) 1.3 H 0.0-1.0 X 10^3 Eosinophils # (Auto) 0.0 0.0-0.3 10^3/uL Basophils # (Auto) 0.0 0.0-0.1 10^3/uL Prothrombin Time 13.8 12.2-14.7 SEC INR Comment 1.0 0.8-1.4 Activated Partial Thromboplast Time 37 H 24-35 SEC Sodium Level 135 135-145 MMOL/L Potassium Level 3.8 3.6-5.0 MMOL/L Chloride Level 102 98-107 MMOL/L Carbon Dioxide Level 25 21-32 MMOL/L Anion Gap 8 5-14 MMOL/L Blood Urea Nitrogen 5 L 7-18 MG/DL Creatinine 0.81 0.60-1.30 MG/DL Estimat Glomerular Filtration Rate > 60 BUN/Creatinine Ratio 6 Glucose Level 102 70-105 MG/DL Lactic Acid Level 1.07 0.50-2.00 MMOL/L Calcium Level 8.9 8.5-10.1 MG/DL Corrected Calcium 9.1 8.5-10.1 MG/DL Total Bilirubin 0.3 0.1-1.0 MG/DL Aspartate Amino Transf (AST/SGOT) 13 5-34 U/L Alanine Aminotransferase (ALT/SGPT) 8 0-55 U/L Alkaline Phosphatase 73 40-136 U/L Total Protein 7.3 6.4-8.2 GM/DL Albumin 3.8 3.2-4.5 GM/DL Lipase 9 8-78 U/L My Orders Orders - SHERLEY PATRICK Cbc With Automated Diff (05/14/20 13:31) Comprehensive Metabolic Panel (05/14/20 13:31) Blood Culture (05/14/20 13:31) Sputum Culture (05/14/20 13:31) Urinalysis (05/14/20 13:31) Protime With Inr (05/14/20 13:31) Partial Thromboplastin Time (05/14/20 13:31) Chest 1 View, Ap/Pa Only (05/14/20 13:31) Ed Iv/Invasive Line Start (05/14/20 13:31) Ed Iv/Invasive Line Start (05/14/20 13:31) Vital Signs Adult Sepsis Patie Q15M (05/14/20 13:31) Ondansetron Injection (Zofran Injectio (05/14/20 13:45) O2 (05/14/20 13:31) Remove Rings In Anticipation O (05/14/20 13:31) Lactic Acid Analyzer (05/14/20 13:31) Ns Iv 1000 Ml (Sodium Chloride 0.9%) (05/14/20 13:31) Ceftriaxone For Iv Use (Rocephin For I (05/14/20 13:45) Lipase (05/14/20 13:31) Metronidazole 500mg/100ml Ivpb (Flagyl 5 (05/14/20 13:45) Ed Iv/Invasive Line Start (05/14/20 13:31) Ns Iv 1000 Ml (Sodium Chloride 0.9%) (05/14/20 13:31) Ketorolac Injection (Toradol Injection) (05/14/20 13:45) Hcg,Qualitative Urine (05/14/20 13:35) Urine Culture (05/14/20 13:19) General/Regular (05/14/20 Dinner) Acetaminophen Tablet/Caplet (Tylenol T (05/14/20 15:30) General/Regular (05/14/20 Lunch) Medications Given in ED Current Medications Medications Dose Ordered Sig/Marlen Route Start Time Stop Time Status Last Admin Dose Admin Ceftriaxone Sodium 1000 mg/ Sterile Water 10 ml @ 200 mls/hr ONCE ONCE IV 05/14/20 13:45 05/14/20 13:47 DC 05/14/20 14:29 200 MLS/HR Ketorolac Tromethamine 30 mg ONCE ONCE IVP 05/14/20 13:45 05/14/20 13:46 DC 05/14/20 13:47 30 MG Metronidazole 100 ml @ 100 mls/hr ONCE ONCE IV 05/14/20 13:45 05/14/20 14:44 DC 05/14/20 14:36 100 MLS/HR Ondansetron HCl 8 mg PRN PRN IV 05/14/20 13:45 05/14/20 13:48 DC 05/14/20 13:47 8 MG Vital Signs/I&O 05/14/20 12:55 Temp 39.6 Pulse 116 Resp 20 B/P (MAP) 107/67 (80) Pulse Ox 97 O2 Delivery Room Air Progress Progress Note #1: Time: 13:44 Progress Note 2 L normal saline for septic workup. She has a normal pressure. Plan to give her Rocephin and Flagyl For intra-abdominal processes. Pyelonephritis is high on the differential. Not having any diarrhea to suggest colitis. Appendicitis is a possibility. Toradol for her pain and fever. Progress Note #2: Time: 15:23 Progress Note The patient is feeling better, desiring something to eat. Her nausea is gone. Plan to put her in an inpatient for sepsis pyelonephritis. Her blood pressure even despite antibiotics has held stable at around 105-110 systolic. Diagnostic Imaging Diagonstic Imaging: Xray Plain Films/CT/US/NM/MRI: chest Comments [facility]. [place], [place] NAME: LUCY RESENDEZ [facility] REC#: [id number] PT STATUS: REG ER : 1980 PHYSICIAN: SHERLEY PATRICK MD ADMIT DATE: 05/14/20/ER Draft Date of Exam:05/14/20 CHEST 1 VIEW, AP/PA ONLY Indication: Fever and bodyaches. Time of Exam: 2:12 PM Comparison is made with prior chest from 06/15/2015. The heart size is normal. The pulmonary vascularity is unremarkable. The lungs are clear. No infiltrate, effusion or pneumothorax is detected. Impression: No acute cardiopulmonary process is detected. Dictated on workstation # [id number] Dict: 05/14/20 1415 Trans: 05/14/20 1416 [facility] [id number] Interpreted by: HECTOR NELSON MD Electronically signed by: Reviewed: Reviewed by Me Departure Communication (Admissions) Time/Spoke to Admitting Phy: 15:15 Dr. Lux accepts the patient to the floor for admission with IV antibiotics, Tylenol, ibuprofen, cooling blankets and management of symptoms with IV fluids. Impression Primary Impression: Pyelonephritis Additional Impression: Sepsis Qualified Codes: A41.9 - Sepsis, unspecified organism Disposition: ADMITTED INPATIENT Condition: Stable Admissions Decision to Admit Reason: Admit from ER (General) Decision to Admit/Date: May 14, 2020 Time/Decision to Admit Time: 14:00 Departure-Patient Inst. Referrals: YAHIR LOVING MD (PCP/Family) Primary Care Physician SHERLEY PATRICK May 14, 2020 13:36
[2020-05-14 13:45] LABS: BILIRUBIN,URINE NEGATIVE (NEGATIVE); CLARITY,URINE CLEAR; COLOR,URINE YELLOW; GLUCOSE, URINE (UA) NEGATIVE (NEGATIVE); KETONES,URINE NEGATIVE (NEGATIVE); LEUKOCYTE ESTERASE ,URINE 3+ (NEGATIVE); NITRITE,URINE NEGATIVE (NEGATIVE); PROTEIN,URINE 1+ (NEGATIVE)
[2020-05-14] MEDS ORDERED: KETOROLAC 30 MG/ML VIAL IVP ONE (13:45)
[2020-05-14] MEDS ORDERED: ONDANSETRON 4 MG/2 ML (SDV) Z0FRAN IV PRN ×2 (13:45→17:30)
[2020-05-14] MEDS ORDERED: metroNIDAZOLE 500MG/100ML IVPB 100 ML IV ONE (13:45)
[2020-05-14] MEDS ORDERED: cefTRIAXone FOR IV USE 1,000 MG in WATER (STERILE) FOR INJECTION 10 ML IV ONE (13:45)
[2020-05-14 13:47] LABS: BASOPHILS % (AUTO) 0 % (0-10); EOSINOPHILS % (AUTO) 0 % (0-10); HEMATOCRIT 35 % (35-52); HEMOGLOBIN 11.3 G/DL (11.5-16.0); LYMPHOCYTES # (AUTO) 1.3 X 10^3 (1.0-4.0); LYMPHOCYTES % (AUTO) 11 % (12-44); MEAN CORPUSCULAR HEMOGLOBIN 31 PG (25-34); MEAN CORPUSCULAR HGB CONC 33 G/DL (32-36); MEAN CORPUSCULAR VOLUME 94 FL (80-99); MEAN PLATELET VOLUME 10.3 FL (7.4-10.4); MONOCYTES # (AUTO) 1.3 X 10^3 (0.0-1.0); MONOCYTES % (AUTO) 12 % (0-12); NEUTROPHILS # (AUTO) 8.6 X 10^3 (1.8-7.8); NEUTROPHILS % (AUTO) 77 % (42-75); PLATELET COUNT 249 10^3/uL (130-400); RED CELL DISTRIBUTION WIDTH 12.4 % (10.0-14.5); WHITE BLOOD COUNT 11.3 10^3/uL (4.3-11.0)
[2020-05-14 13:54] LABS: BACTERIA,URINE FEW /HPF; WBC,URINE >100 /HPF
[2020-05-14 13:56] LABS: PROTHROMBIN TIME PATIENT 13.8 SEC (12.2-14.7)
[2020-05-14 14:03] LABS: ALANINE AMINOTRANSFERASE 8 U/L (0-55); ALBUMIN 3.8 GM/DL (3.2-4.5); ALKALINE PHOSPHATASE 73 U/L (40-136); BILIRUBIN,TOTAL 0.3 MG/DL (0.1-1.0); BUN/CREATININE RATIO 6; CALCIUM 8.9 MG/DL (8.5-10.1); CARBON DIOXIDE 25 MMOL/L (21-32); CHLORIDE 102 MMOL/L (98-107); CREATININE SERUM 0.81 MG/DL (0.60-1.30); GFR ESTIMATED > 60; GLUCOSE 102 MG/DL (70-105); LIPASE 9 U/L (8-78); POTASSIUM 3.8 MMOL/L (3.6-5.0); SODIUM 135 MMOL/L (135-145); TOTAL PROTEIN 7.3 GM/DL (6.4-8.2)
--- NOTE | 2020-05-14 14:17 | Diagnostic Imaging Report ---
Indication: Fever and bodyaches. Time of Exam: 2:12 PM Comparison is made with prior chest from 06/15/2015. The heart size is normal. The pulmonary vascularity is unremarkable. The lungs are clear. No infiltrate, effusion or pneumothorax is detected. Impression: No acute cardiopulmonary process is detected. Dictated by: Dictated on workstation # [id number]
--- NOTE | 2020-05-14 14:35 | NUR ---
Pt reports head pressure has improved at this time. Pt's temperature 38.9 at this time. Will continue to monitor.
--- NOTE | 2020-05-14 15:08 | NUR ---
Pt on phone with updating regarding plan of care.
--- NOTE | 2020-05-14 15:15 | NUR ---
Food ordered for pt at this time.
[2020-05-14] MEDS ORDERED: ACETAMINOPHEN 325 MG TABLET PO ONE (15:30)
[2020-05-14 16:43] VITALS: BP_SYST 103; BP_SYST 108; BP_SYST 93; BP_DIAS 56; BP_DIAS 64; BP_DIAS 65
--- NOTE | 2020-05-14 16:57 | NUR ---
RECEIVED REPORT FROM ED NURSE. PT NOW IN ROOM
[2020-05-14 16:58] VITALS: BP 106/70
[2020-05-14] MEDS ORDERED: ACETAMINOPHEN 325 MG TABLET PO PRN (17:15)
[2020-05-14] MEDS ORDERED: ENOXAPARIN 40 MG/0.4 ML (LOVENOX) SYR SC SCH (17:30)
[2020-05-14] MEDS ORDERED: PROMETHAZINE INJ 25 MG/ML (PHENERGAN) AMP IV PRN (17:30)
--- OUTSIDE RECORDS SUMMARY | 2020-05-14 17:49 | XMS REPORT ---
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 Name Role Phone Migration, Doctor Unavailable Unavailable PROBLEMS Type Condition ICD9-CM Code [id number] Code Onset Dates Condition S tatus SNOMED Code Problem Other chronic pain G89.29 Active 8 1342697 Problem Bipolar disorder, curr episode mixed, severe, w/ o psychotic features F31.63 Active 08854668 Problem Posttraumatic stress disorder 309.81 Active 87220741 Problem Urge incontinence N39.41 Active 87 033080 ALLERGIES No Information ENCOUNTERS Encounter Location Date Diagnosis [place] [address] [place] [id number] [place] [id number] Mar, [place] [address] [place] [id number] [place] [id number] January, Bipolar disorder, curr episo de mixed, severe, w/o psychotic features F31.63 [place] [address] [place] [id number] [place] [address] January, [place] [address] [place] [id number] [place] [address] January, [place] [address] [place] [id number] [place] [id number] January, Bipolar disorder, curr episo de mixed, severe, w/o psychotic features F31.63 [facility] [address] [place] [id number] [place] [id number] Nov, Bipolar disorder, curr episo de mixed, severe, w/o psychotic features F31.63 [place] [address] [place] [id number] [place] [id number] Nov, High risk medications (not a nticoagulants) long-term use Z79.899 and Bipolar disorder, curr episode mixed, severe, w/o psychotic features F31.63 [place] [address] [facility] [id number] [address] [place] [address] Nov, Bipolar disorder, curr episo de mixed, severe, w/o psychotic features F31.63 ; High risk medications (not anticoagulants) long-term use Z79.899 and Screening for diabetes mellitus Z13.1 [place] [address] [place] [id number] [place] [id number] Nov, Low back pain M54.5 [place] [address] [facility] [id number] [address] [place] [address] Nov, Screening for diabetes melli tus Z13.1 ; Low back pain M54.5 ; Other chronic pain G89.29 ; Screening for lipid disorders Z13.220 ; Thinning hair L65.9 ; Urge incontinence N39.41 ; Fatigue, unspecified type R53.83 ; High risk medications (not anticoagulants) long-term use Z79.899 and Bipolar disorder, curr episode mixed, severe, w/o psychotic features F31.63 [place] [address] [place] [id number] [place] [address] Oct, Screening for diabetes melli tus Z13.1 ; Low back pain M54.5 ; Other chronic pain G89.29 ; Screening for lipid disorders Z13.220 ; Thinning hair L65.9 ; Urge incontinence N39.41 ; Fatigue, unspecified type R53.83 ; Bipolar disorder, curr episode mixed, severe, w/o psychotic features F31.63 and High risk medications (not anticoagulants) long-term use Z79.899 [place] [address] [place] [id number] [place] [address] Oct, [place] [address] [place] [id number] [place] [id number] Oct, Bipolar disorder, curr episo de mixed, severe, w/o psychotic features F31.63 and High risk medications (not anticoagulants) long-term use Z79.899 [place] [address] [place] [id number] [place] [id number] 10 Oct, 2017 Laceration of floor of mouth , initial encounter S01.512A [facility] [address] [place] [id number] Oct, Laceration of floor of mouth, initial encounter S01.512A [facility] [address] [id number] [address] [place] [id number] 14 Dec, 2014 [facility] [address] [id number] [address] [place] [id number] Dec, [facility] [address] [id number] [address] [place] [id number] May, [facility] [address] [id number] [address] [place] [id number] May, [facility] [address] [id number] [address] [place] [phone] Mar, [facility] [address] [id number] [address] [place] [phone] January, [facility] [address] [id number] [address] [place] [id number] January, [facility] [address] [id number] [address] [place] [id number] January, [facility] [address] [id number] [address] [place] [phone] January, [facility] [address] [id number] [address] [place] [id number] Dec, [facility] [address] [id number] [address] [place] [phone] Nov, [facility] [address] [id number] [address] [place] [phone] Nov, [facility] [address] [id number] [address] [place] [phone] Nov, [facility] [address] [id number] [address] [place] [address], [place] [address] 2012 [facility] [address] [id number] [address] [place] [address], [place] [address] Oct, [facility] [address] [id number] [address] [place] [address], [place] [address] Oct, [facility] [address] [id number] [address] [place] [address], [place] [address] Oct, [facility] [address] [id number] [address] [place] [address], [place] [address] 16 Oct, [address] [facility] [address] [id number] [address] [place] [address], [place] [address] 15 Oct, 2012 [facility] [address] [id number] [address] [place] [address], [place] [address] 14 Oct, 2012 [facility] [address] [id number] [address] [place] [address], [place] [address] 08 Oct, 2012 [facility] [address] [id number] [address] [place] [address], [place] [address] 19 Sep, 2012 [facility] [address] [id number] [address] [place] [address], [place] [address] 18 Sep, 2012 [facility] [address] [id number] [address] [place] [address], [place] [address] 17 Sep, 2012 [facility] [address] [id number] [address] [place] [address], [place] [address] 17 Sep, 2012 [facility] [address] [id number] [address] [place] [address], [place] [address] 16 Sep, 2012 [facility] [address] [id number] [address] [place] [address], [place] [address] 15 Sep, 2012 [facility] [address] [id number] [address] [place] [address], [place] [address] 14 Sep, 2012 [facility] [address] [id number] [address] [place] [address], [place] [address] 14 Sep, 2012 [facility] [address] [id number] [address] [place] [address], [place] [address] 13 Sep, 2012 [facility] [address] [id number] [address] [place] [address], [place] [address] Sep, [facility] [address] [id number] [address] [place] [address], [place] [address] Aug, [facility] [address] [id number] [address] [place] [address], [place] [address] Aug, [facility] [address] [id number] [address] [place] [address], [place] [address] Aug, [facility] [address] [id number] [address] [place] [address], [place] [address] Aug, [facility] [address] [id number] [address] [place] [address], [place] [address] Aug, [facility] [address] [id number] [address] [place] [address], [place] [address] Aug, [facility] [address] [id number] [address] [place] [address], [place] [address] Aug, [facility] [address] [id number] [address] [place] [address], [place] [address] Nov, [facility] [address] [id number] [address] [place] [address], [place] [address] Oct, [facility] [address] [id number] [address] [place] [address], [place] [address] Oct, [facility] [address] [id number] [address] [place] [address], [place] [address] Sep, [facility] [address] [id number] [address] [place] [address], [place] [address] Sep, [facility] [address] [id number] [address] [place] [address], [place] [address] Sep, [facility] [address] [id number] [address] [place] [id number] Sep, [facility] [address] [facility] [id number] [address] [place] [id number] Sep, [facility] [address] [facility] [id number] [address] [place] [phone] Sep, [facility] [address] [facility] [id number] [address] [place] [id number] Sep, IMMUNIZATIONS No Known Immunizations SOCIAL HISTORY [...]
--- OUTSIDE RECORDS SUMMARY | 2020-05-14 17:49 | XMS REPORT ---
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 Advance Directives No 7:13pm Health Care Power of Investigation Division Captain No 06/15/15 9:08am Organ Donor Yes 06/15/15 9:08am Resuscitation Status Full Code 03/12/16 7:13pm Directive Response Recor ded Date/Time Advance Directives No 9:08am Health Care Power of Investigation Division Captain No 06/15/15 9:08am Organ Donor Yes 06/15/15 9:08am Resuscitation Status Full Code 06/15/15 9:08am Directive Response Recor ded Date Advance Directives N 05/14 11:25pm Health Care Power of Investigation Division Captain N 02/22/13 1:40pm Organ Donor Y 03/09/13 1 1:25pm Directive Response Recor ded Date Advance Directives N 1:40pm Health Care Power of Investigation Division Captain N 02/22/13 1:40pm Organ Donor Y 02/22/13 1 :40pm Directive Response Recor ded Date Advance Directives N 9:22am Health Care Power of Investigation Division Captain N 03/19/13 9:22am Organ Donor Y 03/19/13 9 :22am Directive Response Recor ded Date Advance Directives N 01/12 5:51pm Health Care Power of Investigation Division Captain N 02/22/13 1:40pm Organ Donor Y 03/05/13 5 :51pm Directive Response Recor ded Date/Time Advance Directives No 6:19pm Health Care Power of Investigation Division Captain No 04/29/18 6:19pm Organ Donor Yes 04/29/18 6:19pm Resuscitation Status Full Code 04/29/18 6:19pm Directive Response Recor ded Date/Time Advance Directives No 3:20pm Health Care Power of Investigation Division Captain No 05/01/18 3:20pm Organ Donor Yes 05/01/18 3:20pm Resuscitation Status Full Code 05/01/18 3:20pm Discharge Instructions No hospital discharge instructions.No hospital discharge instructions.No hospital discharge instruction information available.No hospital discharge instruction information available. Additional Source Comments This clinical document has been generated using [employer] software that has been certified by the Office of the National Coordinator for Health Information Technology (ONC 15.99.04.3023.Diam.31.00.0.230662) and the National Committee for Helicopter Engineer (NCQA, as an eMeasure certified technology). FOR [...] BASED ON T HE PRIMARY CLINICAL RECORDS. [facility]. provides no warranty or guara ntee of the accuracy or completeness of information in this document.The followi ng information is based on time limited clinical information UNRECOGNIZED CONTENT PROVIDED BELOW FOR UNRECOGNIZED SECTION REASON FOR VISIT [id number]-EirORE-OxpANA-TitWIE-MigEMR-MigEstablish Care/ she states her BH proviser told [...]
--- OUTSIDE RECORDS SUMMARY | 2020-05-14 17:49 | XMS REPORT ---
Author Author Angelica Reyes Organization [facility] Address [address] [place] [address] Care Team Providers Care Beaming Inspector Name Role Phone ALEX Reyes Unavailable PROBLEMS Type Condition ICD9-CM Code ZQJ65-XH Code Onset Dates Condition S tatus SNOMED Code Problem Other chronic pain G89.29 Active 8 7711368 Problem Bipolar disorder, curr episode mixed, severe, w/ o psychotic features F31.63 Active 35412891 Problem Posttraumatic stress disorder 309.81 Active 52152973 Problem Urge incontinence N39.41 Active 87 169063 ALLERGIES No Information ENCOUNTERS Encounter Location Date Diagnosis [place] [address] [place] [id number] [place] [id number] Mar, [place] [address] [place] [id number] [place] [address] January, Bipolar disorder, curr episo de mixed, severe, w/o psychotic features F31.63 [place] [address] [place] [id number] [place] [phone] January, [place] [id number] [place] [address] January, [place] [address] [place] [id number] [place] [address] January, Bipolar disorder, curr episo de mixed, severe, w/o psychotic features F31.63 [place] [address] [place] [id number] [place] [id number] Nov, Bipolar disorder, curr episo de mixed, severe, w/o psychotic features F31.63 [place] [address] [place] [id number] [place] [address] Nov, High risk medications (not a nticoagulants) long-term use Z79.899 and Bipolar disorder, curr episode mixed, severe, w/o psychotic features F31.63 [place] [address] [place] [id number] [place] [address] Nov, Bipolar disorder, curr episo de mixed, severe, w/o psychotic features F31.63 ; High risk medications (not anticoagulants) long-term use Z79.899 and Screening for diabetes mellitus Z13.[address] [address] Nov, Low back pain M54.[address] [address] Nov, Screening for diabetes melli tus Z13.1 ; Low back pain M54.5 ; Other chronic pain G89.29 ; Screening for lipid disorders Z13.220 ; Thinning hair L65.9 ; Urge incontinence N39.41 ; Fatigue, unspecified type R53.83 ; High risk medications (not anticoagulants) long-term use Z79.899 and Bipolar disorder, curr episode mixed, severe, w/o psychotic features F31.63 [place] [address] [place] [id number] [place] [address] Oct, Screening for diabetes melli tus Z13.1 ; Low back pain M54.5 ; Other chronic pain G89.29 ; Screening for lipid disorders Z13.220 ; Thinning hair L65.9 ; Urge incontinence N39.41 ; Fatigue, unspecified type R53.83 ; Bipolar disorder, curr episode mixed, severe, w/o psychotic features F31.63 and High risk medications (not anticoagulants) long-term use Z79.899 [place] [address] [place] [id number] [place] [address] Oct, [place] [id number] [place] [address] Oct, Bipolar disorder, curr episo de mixed, severe, w/o psychotic features F31.63 and High risk medications (not anticoagulants) long-term use Z79.899 [facility] [place] [address] [id number] [address] [place] [address] Oct, Laceration of floor of mouth , initial encounter S01.512A [facility] [address] [place] [id number] Oct, Laceration of floor of mouth, initial encounter S01.512A [facility] [place] [address] [id number] [address] [place] [id number] 14 Dec, 2014 [facility] [place] [address] [id number] [address] [place] [phone] Dec, [facility] [place] [address] [id number] [address] [place] [phone] May, [facility] [place] [address] [id number] [address] [place] [phone] May, [facility] [place] [address] [id number] [address] [place] [phone] Mar, [facility] [place] [address] [id number] [address] [place] [phone] January, [facility] [place] [address] [id number] [address] [place] [phone] January, [facility] [place] [address] [id number] [address] [place] [phone] January, [facility] [place] [address] [id number] [address] [place] [phone] January, [facility] [place] [address] [id number] [address] [place] [phone] Dec, [facility] [place] [address] [id number] [address] [place] [id number] Nov, [facility] [place] [address] [id number] [address] [place] [phone] Nov, [facility] [place] [address] [id number] [address] [place] [address] [place] [address] Nov, [facility] [address] [id number] [address] [place] [address], [place] [address] Nov, [facility] [address] [id number] [address] [place] [address], [place] [address] Oct, [facility] [address] [id number] [address] [place] [address], [place] [address] Oct, [facility] [address] [id number] [address] [place] [address], [place] [address] Oct, [facility] [address] [id number] [address] [place] [address], [place] [address] 16 Oct, 2012 [facility] [address] [id number] [address] [place] [address], [place] [address] 15 Oct, 2012 [facility] [address] [id number] [address] [place] [address], [place] [address] 14 Oct, 2012 [facility] [address] [id number] [address] [place] [address], [place] [address] 08 Oct, 2012 [facility] [address] [id number] [address] [place] [address], [place] [address] 19 Sep, 2012 [facility] [address] [id number] [address] [place] [address], [place] [address] 18 Sep, 2012 [facility] [address] [id number] [address] [place] [address], [place] [address] 17 Sep, 2012 [facility] [address] [id number] [address] [place] [address], [place] [address] 17 Sep, 2012 [facility] [address] [id number] [address] [place] [address], [place] [address] 16 Sep, 2012 [facility] [address] [id number] [address] [place] [address], [place] [address] 15 Sep, 2012 [facility] [address] [id number] [address] [place] [address], [place] [address] 14 Sep, 2012 [facility] [address] [id number] [address] [place] [address], [place] [address] 14 Sep, 2012 [facility] [address] [id number] [address] [place] [address], [place] [address] 13 Sep, 2012 [facility] [address] [id number] [address] [place] [address], [place] [address] 13 Sep, 2012 [facility] [address] [id number] [address] [place] [address], [place] [address] Aug, [facility] [address] [id number] [address] [place] [address], [place] [address] 28 Aug, 2012 [facility] [address] [id number] [address] [place] [address], [place] [address] Aug, [facility] [address] [id number] [address] [place] [address], [place] [address] Aug, [facility] [address] [id number] [address] [place] [address], [place] [address] Aug, [facility] [address] [id number] [address] [place] [address], [place] [address] Aug, [facility] [address] [id number] [address] [place] [address], [place] [address] Aug, [facility] [address] [id number] [address] [place] [address], [place] [address] Nov, [facility] [address] [id number] [address] [place] [address], [place] [address] Oct, [facility] [address] [id number] [address] [place] [address], [place] [address] Oct, [facility] [address] [id number] [address] [place] [address], [place] [address] 31 Sep, 2011 [facility] [address] [id number] [address] [place] [address], [place] [address] 13 Sep, 2011 [facility] [address] [id number] [address] [address] Sep, [facility] [place] [address] [facility] [place] [id number] [address] [place] [id number] Sep, [facility] [place] [address] [facility] [place] [id number] [address] [place] [phone] Sep, [facility] [place] [address] [facility] [place] [id number] [address] [place] [phone] Sep, [facility] [place] [address] [facility] [place] [id number] [address] [place] [phone] Sep, IMMUNIZATIONS No Known Immunizations SOCIAL HISTORY [...]
--- OUTSIDE RECORDS SUMMARY | 2020-05-14 17:49 | XMS REPORT ---
Author Author Angelica Medina Doctor Organization [facility] Address Unknown Phone Unavailable Care Team Providers Care Pastoral Worker Name Role Phone Migration, Doctor Unavailable Unavailable PROBLEMS Type Condition ICD9-CM Code [id number] Code Onset Dates Condition S tatus SNOMED Code Problem Other chronic pain G89.29 Active 8 6997294 Problem Bipolar disorder, curr episode mixed, severe, w/ o psychotic features F31.63 Active 83736297 Problem Posttraumatic stress disorder 309.81 Active 59680424 Problem Urge incontinence N39.41 Active 87 052716 ALLERGIES No Information ENCOUNTERS Encounter Location Date Diagnosis [place] [address] [place] [id number] [address] [place] [address] Mar, [place] [address] [place] [id number] [address] [place] [address] January, Bipolar disorder, curr episo de mixed, severe, w/o psychotic features F31.63 [place] [address] [place] [id number] [address] [place] [address] January, [place] [address] [place] [id number] [address] [place] [address] January, [place] [address] [place] [id number] [address] [place] [address] January, Bipolar disorder, curr episo de mixed, severe, w/o psychotic features F31.63 [facility] [place] [address] [place] [id number] [address] [place] [address] Nov, Bipolar disorder, curr episo de mixed, severe, w/o psychotic features F31.63 [place] [address] [place] [id number] [address] [place] [address] Nov, High risk medications (not a nticoagulants) long-term use Z79.899 and Bipolar disorder, curr episode mixed, severe, w/o psychotic features F31.63 [place] [address] N [facility] [id number] [address] [place] [address] Nov, Bipolar disorder, curr episo de mixed, severe, w/o psychotic features F31.63 ; High risk medications (not anticoagulants) long-term use Z79.899 and Screening for diabetes mellitus Z13.1 [place] [address] [place] [id number] [address] [place] [address] Nov, Low back pain M54.5 [place] [address] [address] [facility] [id number] [address] [place] [address] Nov, Screening for diabetes melli tus Z13.1 ; Low back pain M54.5 ; Other chronic pain G89.29 ; Screening for lipid disorders Z13.220 ; Thinning hair L65.9 ; Urge incontinence N39.41 ; Fatigue, unspecified type R53.83 ; High risk medications (not anticoagulants) long-term use Z79.899 and Bipolar disorder, curr episode mixed, severe, w/o psychotic features F31.63 [place] [address] [place] [id number] [address] [place] [address] Oct, Screening for diabetes melli tus Z13.1 ; Low back pain M54.5 ; Other chronic pain G89.29 ; Screening for lipid disorders Z13.220 ; Thinning hair L65.9 ; Urge incontinence N39.41 ; Fatigue, unspecified type R53.83 ; Bipolar disorder, curr episode mixed, severe, w/o psychotic features F31.63 and High risk medications (not anticoagulants) long-term use Z79.899 [place] [address] [place] [id number] [address] [place] [address] Oct, [place] [address] [place] [id number] [address] [place] [address] Oct, Bipolar disorder, curr episo de mixed, severe, w/o psychotic features F31.63 and High risk medications (not anticoagulants) long-term use Z79.899 [place] [address] [place] [id number] [address] [place] [address] 10 Oct, 2017 Laceration of floor of mouth , initial encounter S01.512A [facility] [address] [place] [id number] 57 Oct, Laceration of floor of mouth, initial encounter S01.512A [facility] [address] [id number] [address] [place] [address] 14 Dec, 2014 [facility] [address] [id number] [address] [place] [address] Dec, [facility] [address] [id number] [address] [place] [address] May, [facility] [address] [id number] [address] [place] [address] May, [facility] [address] [id number] [address] [place] [address] Mar, [facility] [address] [id number] [address] [place] [address] January, [facility] [address] [id number] [address] [place] [address] January, [facility] [address] [id number] [address] [place] [address] January, [facility] [address] [id number] [address] [place] [address] January, [facility] [address] [id number] [address] [place] [address] Dec, [facility] [address] [id number] [address] [place] [address] Nov, [facility] [address] [id number] [address] [place] [address] Nov, [facility] [address] [id number] [address] [place] [address] Nov, [facility] [address] [id number] [address] [place] [address], [place] [address] 2012 [facility] [address] [id number] [address] [place] [address], [place] [address] Oct, [facility] [address] [id number] [address] [place] [address], [place] [address] Oct, [facility] [address] [id number] [address] [place] [address], [place] [address] Oct, [facility] [address] [id number] [address] [place] [address], [place] [address] 16 Oct, 2012 [facility] [address] [id number] [address] [place] [address], [place] [address] 15 Oct, 2012 [facility] [address] [id number] [address] [place] [address], [place] [address] 14 Oct, 2012 [facility] [address] [id number] [address] [place] [address], [place] [address] 08 Oct, 2012 [facility] [address] [id number] [address] [place] [address], [place] [address] 19 Sep, 2012 [facility] [address] [id number] [address] [place] [address], [place] [address] 18 Sep, 2012 [facility] [address] [id number] [address] [place] [address], [place] [address] 17 Sep, 2012 [facility] [address] [id number] [address] [place] [address], [place] [address] 17 Sep, 2012 [facility] [address] [id number] [address] [place] [address], [place] [address] 16 Sep, 2012 [facility] [address] [id number] [address] [place] [address], [place] [address] 15 Sep, 2012 [facility] [address] [id number] [address] [place] [address], [place] [address] 14 Sep, 2012 [facility] [address] [id number] [address] [place] [address], [place] [address] 14 Sep, 2012 [facility] [address] [id number] [address] [place] [address], [place] [address] 13 Sep, 2012 [facility] [address] [id number] [address] [place] [address], [place] [address] Sep, [facility] [address] [id number] [address] [place] [address], [place] [address] Aug, [facility] [address] [id number] [address] [place] [address], [place] [address] Aug, [facility] [address] [id number] [address] [place] [address], [place] [address] Aug, [facility] [address] [id number] [address] [place] [address], [place] [address] Aug, [facility] [address] [id number] [address] [place] [address], [place] [address] Aug, [facility] [address] [id number] [address] [place] [address], [place] [address] Aug, [facility] [address] [id number] [address] [place] [address], [place] [address] Aug, [facility] [address] [id number] [address] [place] [address], [place] [address] Nov, [facility] [address] [id number] [address] [place] [address], [place] [address] Oct, [facility] [address] [id number] [address] [place] [address], [place] [address] Oct, [facility] [address] [id number] [address] [place] [address], [place] [address] Sep, [facility] [address] [id number] [address] [place] [address], [place] [address] Sep, [facility] [address] [id number] [address] [place] [address], [place] [address] Sep, [facility] [address] [id number] [address] [place] [address] Sep, [facility] [place] [address] [facility] [id number] [address] [place] [address] Sep, [facility] [place] [address] [facility] [id number] [address] [place] [address] Sep, [facility] [place] [address] [facility] [id number] [address] [place] [address] Sep, IMMUNIZATIONS No Known Immunizations SOCIAL HISTORY [...]
--- OUTSIDE RECORDS SUMMARY | 2020-05-14 17:49 | XMS REPORT | Continuity of Care Document ---
Author Author Angelica CANO Organization [facility] Address Unknown Phone Unavailable Care Team Providers Care Director Automotive Name Role Phone [facility] Unavailable Unavailable Problems No Data Provided for [...]
--- OUTSIDE RECORDS SUMMARY | 2020-05-14 17:49 | XMS REPORT ---
Author Author Angelica Reyes Organization [facility] Address [address] [place] [address] Care Team Providers Care Senior Game Developer Name Role Phone ALEX Reyes Unavailable PROBLEMS Type Condition ICD9-CM Code MYD43-CD Code Onset Dates Condition S tatus SNOMED Code Problem Other chronic pain G89.29 Active 8 6421087 Problem Bipolar disorder, curr episode mixed, severe, w/ o psychotic features F31.63 Active 39455113 Problem Posttraumatic stress disorder 309.81 Active 09150200 Problem Urge incontinence N39.41 Active 87 660177 ALLERGIES No Information ENCOUNTERS Encounter Location Date Diagnosis [place] [address] [place] [id number] [address] [place] [address] Mar, [place] [address] [place] [id number] [address] [place] [address] January, Bipolar disorder, curr episo de mixed, severe, w/o psychotic features F31.63 [place] [address] [place] [id number] [address] [place] [address] January, [place] [address] [place] [address] January, [place] [address] [place] [id number] [address] [place] [address] January, Bipolar disorder, curr episo de mixed, severe, w/o psychotic features F31.63 [place] [address] [place] [id number] [address] [place] [address] Nov, Bipolar disorder, curr episo de mixed, severe, w/o psychotic features F31.63 [place] [address] [place] [id number] [address] [place] [address] Nov, High risk medications (not a nticoagulants) long-term use Z79.899 and Bipolar disorder, curr episode mixed, severe, w/o psychotic features F31.63 [place] [address] [place] [id number] [address] [place] [address] Nov, Bipolar disorder, curr episo de mixed, severe, w/o psychotic features F31.63 ; High risk medications (not anticoagulants) long-term use Z79.899 and Screening for diabetes mellitus Z13.[address] [address] Nov, Low back pain M54.[address] [address] Nov, Screening for diabetes melli tus Z13.1 ; Low back pain M54.5 ; Other chronic pain G89.29 ; Screening for lipid disorders Z13.220 ; Thinning hair L65.9 ; Urge incontinence N39.41 ; Fatigue, unspecified type R53.83 ; High risk medications (not anticoagulants) long-term use Z79.899 and Bipolar disorder, curr episode mixed, severe, w/o psychotic features F31.63 [place] [address] [place] [id number] [address] [place] [address] Oct, Screening for diabetes melli tus Z13.1 ; Low back pain M54.5 ; Other chronic pain G89.29 ; Screening for lipid disorders Z13.220 ; Thinning hair L65.9 ; Urge incontinence N39.41 ; Fatigue, unspecified type R53.83 ; Bipolar disorder, curr episode mixed, severe, w/o psychotic features F31.63 and High risk medications (not anticoagulants) long-term use Z79.899 [place] [address] [place] [id number] [address] [place] [address] Oct, [place] [id number] [address] [place] [address] Oct, Bipolar disorder, curr episo de mixed, severe, w/o psychotic features F31.63 and High risk medications (not anticoagulants) long-term use Z79.899 [facility] [address] [id number] [address] [place] [address] Oct, Laceration of floor of mouth , initial encounter S01.512A [facility] [address] [place] [id number] Oct, Laceration of floor of mouth, initial encounter S01.512A [facility] [address] [id number] [address] [place] [address] 14 Dec, 2014 [facility] [address] [id number] [address] [place] [address] Dec, [facility] [address] [id number] [address] [place] [address] May, [facility] [address] [id number] [address] [place] [address] May, [facility] [address] [id number] [address] [place] [address] Mar, [facility] [address] [id number] [address] [place] [address] January, [facility] [address] [id number] [address] [place] [address] January, [facility] [address] [id number] [address] [place] [address] January, [facility] [address] [id number] [address] [place] [address] January, [facility] [address] [id number] [address] [place] [address] Dec, [facility] [address] [id number] [address] [place] [address] Nov, [facility] [address] [id number] [address] [place] [address] Nov, [facility] [address] [id number] [address] [place] [address] [place] [address] Nov, [facility] [address] [id number] [address] [place] [address], [place] [address] Nov, [facility] [address] [id number] [address] [place] [address], [place] [address] Oct, [facility] [address] [id number] [address] [place] [address], [place] [address] Oct, [facility] [address] [id number] [address] [place] [address], [place] [address] Oct, [facility] [address] [id number] [address] [place] [address], [place] [address] 16 Oct, 2012 [facility] [address] [id number] [address] [place] [address], [place] [address] 15 Oct, 2012 [facility] [address] [id number] [address] [place] [address], [place] [address] 14 Oct, 2012 [facility] [address] [id number] [address] [place] [address], [place] [address] 08 Oct, 2012 [facility] [address] [id number] [address] [place] [address], [place] [address] 19 Sep, 2012 [facility] [address] [id number] [address] [place] [address], [place] [address] 18 Sep, 2012 [facility] [address] [id number] [address] [place] [address], [place] [address] 17 Sep, 2012 [facility] [address] [id number] [address] [place] [address], [place] [address] 17 Sep, 2012 [facility] [address] [id number] [address] [place] [address], [place] [address] 16 Sep, 2012 [facility] [address] [id number] [address] [place] [address], [place] [address] 15 Sep, 2012 [facility] [address] [id number] [address] [place] [address], [place] [address] 14 Sep, 2012 [facility] [address] [id number] [address] [place] [address], [place] [address] 14 Sep, 2012 [facility] [address] [id number] [address] [place] [address], [place] [address] 13 Sep, 2012 [facility] [address] [id number] [address] [place] [address], [place] [address] 13 Sep, 2012 [facility] [address] [id number] [address] [place] [address], [place] [address] Aug, [facility] [address] [id number] [address] [place] [address], [place] [address] 28 Aug, 2012 [facility] [address] [id number] [address] [place] [address], [place] [address] Aug, [facility] [address] [id number] [address] [place] [address], [place] [address] Aug, [facility] [address] [id number] [address] [place] [address], [place] [address] Aug, [facility] [address] [id number] [address] [place] [address], [place] [address] Aug, [facility] [address] [id number] [address] [place] [address], [place] [address] Aug, [facility] [address] [id number] [address] [place] [address], [place] [address] Nov, [facility] [address] [id number] [address] [place] [address], [place] [address] Oct, [facility] [address] [id number] [address] [place] [address], [place] [address] Oct, [facility] [address] [id number] [address] [place] [address], [place] [address] 31 Sep, 2011 [facility] [address] [id number] [address] [place] [address], [place] [address] 13 Sep, 2011 [facility] [address] [id number] [address] [address] Sep, [facility] [address] [facility] [id number] [address] [place] [address] Sep, [facility] [address] [facility] [id number] [address] [place] [address] Sep, [facility] [address] [facility] [id number] [address] [place] [address] Sep, [facility] [address] [facility] [id number] [address] [place] [address] Sep, IMMUNIZATIONS No Known Immunizations SOCIAL HISTORY Never Assessed REASON FOR VISIT PLAN OF CARE VITAL SIGNS Height 67 in 2013-01-16 Weight 160.31 lbs 2013-01-16 Temperature 97.4 degrees Fahrenheit 2013-01-16 Heart Rate 80 bpm 2013-01-16 Respiratory Rate 18 2013-01-16 Blood pressure systolic 108 mmHg 2013-01-16 Blood pressure diastolic 64 mmHg 2013-01-16 MEDICATIONS Unknown Medications RESULTS No Results PROCEDURES Procedure Date Ordered Result Body Site URINE-NO MICRO January 16, 2013 INSTRUCTIONS MEDICATIONS ADMINISTERED No Known Medications MEDICAL (GENERAL) HISTORY Type Description Date Medical History bipolar Medical History no hx of seizures Surgical History c-sections Hospitalization History x 6 Hospitalization History inpatient psychiatric age 19 dx bipo lar
--- OUTSIDE RECORDS SUMMARY | 2020-05-14 17:49 | XMS REPORT ---
Author Author Angelica Medina Doctor Organization [facility] Address Unknown Phone Unavailable Care Team Providers Care Fiber Technologist Name Role Phone Migration, Doctor Unavailable Unavailable PROBLEMS Type Condition ICD9-CM Code PFR36-DW Code Onset Dates Condition S tatus SNOMED Code Problem Other chronic pain G89.29 Active 8 8885263 Problem Bipolar disorder, curr episode mixed, severe, w/ o psychotic features F31.63 Active 94414980 Problem Posttraumatic stress disorder 309.81 Active 53390975 Problem Urge incontinence N39.41 Active 87 203770 ALLERGIES No Information ENCOUNTERS Encounter Location Date Diagnosis [place] [address] [place] [id number] [address] [place] [address] Mar, [place] [address] [place] [id number] [address] [place] [address] January, Bipolar disorder, curr episo de mixed, severe, w/o psychotic features F31.63 [place] [address] [place] [id number] [address] [place] [address] January, [place] [address] [place] [id number] [address] [place] [address] January, [place] [address] [place] [id number] [address] [place] [address] January, Bipolar disorder, curr episo de mixed, severe, w/o psychotic features F31.63 [facility] [address] [place] [address] [id number] [address] [place] [address] Nov, Bipolar disorder, curr episo de mixed, severe, w/o psychotic features F31.63 [place] [address] [place] [id number] [address] [place] [address] Nov, High risk medications (not a nticoagulants) long-term use Z79.899 and Bipolar disorder, curr episode mixed, severe, w/o psychotic features F31.63 [place] [address] N [facility] [place] [id number] [address] [place] [address] Nov, Bipolar disorder, curr episo de mixed, severe, w/o psychotic features F31.63 ; High risk medications (not anticoagulants) long-term use Z79.899 and Screening for diabetes mellitus Z13.1 [place] [address] [place] [id number] [address] [place] [address] Nov, Low back pain M54.5 [place] [address] [facility] [place] [id number] [address] [place] [address] Nov, Screening for diabetes melli tus Z13.1 ; Low back pain M54.5 ; Other chronic pain G89.29 ; Screening for lipid disorders Z13.220 ; Thinning hair L65.9 ; Urge incontinence N39.41 ; Fatigue, unspecified type R53.83 ; High risk medications (not anticoagulants) long-term use Z79.899 and Bipolar disorder, curr episode mixed, severe, w/o psychotic features F31.63 [place] [address] [place] [id number] [address] [place] [address] Oct, Screening for diabetes melli tus Z13.1 ; Low back pain M54.5 ; Other chronic pain G89.29 ; Screening for lipid disorders Z13.220 ; Thinning hair L65.9 ; Urge incontinence N39.41 ; Fatigue, unspecified type R53.83 ; Bipolar disorder, curr episode mixed, severe, w/o psychotic features F31.63 and High risk medications (not anticoagulants) long-term use Z79.899 [place] [address] [place] [id number] [address] [place] [address] Oct, [place] [address] [place] [id number] [address] [place] [address] Oct, Bipolar disorder, curr episo de mixed, severe, w/o psychotic features F31.63 and High risk medications (not anticoagulants) long-term use Z79.899 [place] [address] [place] [id number] [address] [place] [address] 10 Oct, 2017 Laceration of floor of mouth , initial encounter S01.512A [facility] [address] [place] [id number] 57 Oct, Laceration of floor of mouth, initial encounter S01.512A [facility] [place] [address] [id number] [address] [place] [id number] 14 Dec, 2014 [facility] [place] [address] [id number] [address] [place] [address] Dec, [facility] [place] [address] [id number] [address] [place] [address] May, [facility] [place] [address] [id number] [address] [place] [phone] May, [facility] [place] [address] [id number] [address] [place] [address] Mar, [facility] [place] [address] [id number] [address] [place] [address] January, [facility] [place] [address] [id number] [address] [place] [address] January, [facility] [place] [address] [id number] [address] [place] [address] January, [facility] [place] [address] [id number] [address] [place] [id number] January, [facility] [place] [address] [id number] [address] [place] [id number] Dec, [facility] [place] [address] [id number] [address] [place] [address] Nov, [facility] [place] [address] [id number] [address] [place] [id number] Nov, [facility] [place] [address] [id number] [address] [place] [address] Nov, [facility] [place] [address] [id number] [address] [place] [address], [place] [address] 2012 [facility] [address] [id number] [address] [place] [address], [place] [address] Oct, [facility] [address] [id number] [address] [place] [address], [place] [address] Oct, [facility] [address] [id number] [address] [place] [address], [place] [address] Oct, [facility] [address] [id number] [address] [place] [address], [place] [address] 16 Oct, 2012 [facility] [address] [id number] [address] [place] [address], [place] [address] 15 Oct, 2012 [facility] [address] [id number] [address] [place] [address], [place] [address] 14 Oct, 2012 [facility] [address] [id number] [address] [place] [address], [place] [address] 08 Oct, 2012 [facility] [address] [id number] [address] [place] [address], [place] [address] 19 Sep, 2012 [facility] [address] [id number] [address] [place] [address], [place] [address] 18 Sep, 2012 [facility] [address] [id number] [address] [place] [address], [place] [address] 17 Sep, 2012 [facility] [address] [id number] [address] [place] [address], [place] [address] 17 Sep, 2012 [facility] [address] [id number] [address] [place] [address], [place] [address] 16 Sep, 2012 [facility] [address] [id number] [address] [place] [address], [place] [address] 15 Sep, 2012 [facility] [address] [id number] [address] [place] [address], [place] [address] 14 Sep, 2012 [facility] [address] [id number] [address] [place] [address], [place] [address] 14 Sep, 2012 [facility] [address] [id number] [address] [place] [address], [place] [address] 13 Sep, 2012 [facility] [address] [id number] [address] [place] [address], [place] [address] Sep, [facility] [address] [id number] [address] [place] [address], [place] [address] Aug, [facility] [address] [id number] [address] [place] [address], [place] [address] Aug, [facility] [address] [id number] [address] [place] [address], [place] [address] Aug, [facility] [address] [id number] [address] [place] [address], [place] [address] Aug, [facility] [address] [id number] [address] [place] [address], [place] [address] Aug, [facility] [address] [id number] [address] [place] [address], [place] [address] Aug, [facility] [address] [id number] [address] [place] [address], [place] [address] Aug, [facility] [address] [id number] [address] [place] [address], [place] [address] Nov, [facility] [address] [id number] [address] [place] [address], [place] [address] Oct, [facility] [address] [id number] [address] [place] [address], [place] [address] Oct, [facility] [address] [id number] [address] [place] [address], [place] [address] Sep, [facility] [address] [id number] [address] [place] [address], [place] [address] Sep, [facility] [address] [id number] [address] [place] [address], [place] [address] Sep, [facility] [address] [id number] [address] [place] [address] Sep, [facility] [address] [facility] [place] [id number] [address] [place] [address] Sep, [facility] [address] [facility] [place] [id number] [address] [place] [address] Sep, [facility] [address] [facility] [place] [id number] [address] [place] [address] Sep, IMMUNIZATIONS No Known Immunizations SOCIAL HISTORY Never Assessed REASON FOR VISIT PLAN OF CARE VITAL SIGNS Height 67 in 2013-02-14 Weight 161 lbs 2013-02-14 Temperature 96.4 degrees Fahrenheit 2013-02-14 Heart Rate 88 bpm 2013-02-14 Respiratory Rate 18 bpm 2013-02-14 Blood pressure systolic 110 mmHg 2013-02-14 Blood pressure diastolic 70 mmHg 2013-02-14 MEDICATIONS Unknown Medications RESULTS No Results PROCEDURES Procedure Date Ordered Result Body Site OB US, LIMITED, FETUS(S) February 14, 2013 URINE-NO MICRO February 14, 2013 INSTRUCTIONS MEDICATIONS ADMINISTERED No Known Medications MEDICAL (GENERAL) HISTORY Type Description Date Medical History bipolar Medical History no hx of seizures Surgical History c-sections Hospitalization History x 6 Hospitalization History inpatient psychiatric age 19 dx bipo lar
--- OUTSIDE RECORDS SUMMARY | 2020-05-14 17:49 | XMS REPORT ---
Author Author Angelica Reyes Organization [facility] Address [address] [place] [address] Care Team Providers Care Laceworker Name Role Phone ALEX Reyes Unavailable PROBLEMS Type Condition ICD9-CM Code ATR06-UW Code Onset Dates Condition S tatus SNOMED Code Problem Other chronic pain G89.29 Active 8 3293743 Problem Bipolar disorder, curr episode mixed, severe, w/ o psychotic features F31.63 Active 08630984 Problem Posttraumatic stress disorder 309.81 Active 86908586 Problem Urge incontinence N39.41 Active 87 950676 ALLERGIES No Information ENCOUNTERS Encounter Location Date Diagnosis [place] [address] [place] [id number] [address] [place] [address] Mar, [place] [address] [place] [id number] [address] [place] [address] January, Bipolar disorder, curr episo de mixed, severe, w/o psychotic features F31.63 [place] [address] [place] [id number] [address] [place] [address] January, [place] [id number] [place] [address] January, [place] [address] [place] [id number] [address] [place] [address] January, Bipolar disorder, curr episo de mixed, severe, w/o psychotic features F31.63 [place] [address] [place] [id number] [address] [place] [address] Nov, Bipolar disorder, curr episo de mixed, severe, w/o psychotic features F31.63 [place] [address] [place] [id number] [address] [place] [address] Nov, High risk medications (not a nticoagulants) long-term use Z79.899 and Bipolar disorder, curr episode mixed, severe, w/o psychotic features F31.63 [place] [address] [place] [id number] [address] [place] [address] Nov, Bipolar disorder, curr episo de mixed, severe, w/o psychotic features F31.63 ; High risk medications (not anticoagulants) long-term use Z79.899 and Screening for diabetes mellitus Z13.[address] [address] Nov, Low back pain M54.[address] [address] Nov, Screening for diabetes melli tus Z13.1 ; Low back pain M54.5 ; Other chronic pain G89.29 ; Screening for lipid disorders Z13.220 ; Thinning hair L65.9 ; Urge incontinence N39.41 ; Fatigue, unspecified type R53.83 ; High risk medications (not anticoagulants) long-term use Z79.899 and Bipolar disorder, curr episode mixed, severe, w/o psychotic features F31.63 [place] [address] [place] [id number] [address] [place] [address] Oct, Screening for diabetes melli tus Z13.1 ; Low back pain M54.5 ; Other chronic pain G89.29 ; Screening for lipid disorders Z13.220 ; Thinning hair L65.9 ; Urge incontinence N39.41 ; Fatigue, unspecified type R53.83 ; Bipolar disorder, curr episode mixed, severe, w/o psychotic features F31.63 and High risk medications (not anticoagulants) long-term use Z79.899 [place] [address] [place] [id number] [address] [place] [address] Oct, [place] [id number] [address] [place] [address] Oct, Bipolar disorder, curr episo de mixed, severe, w/o psychotic features F31.63 and High risk medications (not anticoagulants) long-term use Z79.899 [facility] [address] [id number] [address] [place] [address] Oct, Laceration of floor of mouth , initial encounter S01.512A [facility] [address] [place] [id number] 57 Oct, Laceration of floor of mouth, initial encounter S01.512A [facility] [address] [id number] [address] [place] [address] 14 Dec, 2014 [facility] [address] [id number] [address] [place] [address] Dec, [facility] [address] [id number] [address] [place] [address] May, [facility] [address] [id number] [address] [place] [address] May, [facility] [address] [id number] [address] [place] [address] Mar, [facility] [address] [id number] [address] [place] [address] January, [facility] [address] [id number] [address] [place] [address] January, [facility] [address] [id number] [address] [place] [address] January, [facility] [address] [id number] [address] [place] [address] January, [facility] [address] [id number] [address] [place] [address] Dec, [facility] [address] [id number] [address] [place] [address] Nov, [facility] [address] [id number] [address] [place] [address] Nov, [facility] [address] [id number] [address] [place] [address] [place] [address] Nov, [facility] [address] [id number] [address] [place] [address], [place] [address] Nov, [facility] [address] [id number] [address] [place] [address], [place] [address] Oct, [facility] [address] [id number] [address] [place] [address], [place] [address] Oct, [facility] [address] [id number] [address] [place] [address], [place] [address] Oct, [facility] [address] [id number] [address] [place] [address], [place] [address] 16 Oct, 2012 [facility] [address] [id number] [address] [place] [address], [place] [address] 15 Oct, 2012 [facility] [address] [id number] [address] [place] [address], [place] [address] 14 Oct, 2012 [facility] [address] [id number] [address] [place] [address], [place] [address] 08 Oct, 2012 [facility] [address] [id number] [address] [place] [address], [place] [address] 19 Sep, 2012 [facility] [address] [id number] [address] [place] [address], [place] [address] 18 Sep, 2012 [facility] [address] [id number] [address] [place] [address], [place] [address] 17 Sep, 2012 [facility] [address] [id number] [address] [place] [address], [place] [address] 17 Sep, 2012 [facility] [address] [id number] [address] [place] [address], [place] [address] 16 Sep, 2012 [facility] [address] [id number] [address] [place] [address], [place] [address] 15 Sep, 2012 [facility] [address] [id number] [address] [place] [address], [place] [address] 14 Sep, 2012 [facility] [address] [id number] [address] [place] [address], [place] [address] 14 Sep, 2012 [facility] [address] [id number] [address] [place] [address], [place] [address] 13 Sep, 2012 [facility] [address] [id number] [address] [place] [address], [place] [address] 13 Sep, 2012 [facility] [address] [id number] [address] [place] [address], [place] [address] Aug, [facility] [address] [id number] [address] [place] [address], [place] [address] 28 Aug, 2012 [facility] [address] [id number] [address] [place] [address], [place] [address] Aug, [facility] [address] [id number] [address] [place] [address], [place] [address] Aug, [facility] [address] [id number] [address] [place] [address], [place] [address] Aug, [facility] [address] [id number] [address] [place] [address], [place] [address] Aug, [facility] [address] [id number] [address] [place] [address], [place] [address] Aug, [facility] [address] [id number] [address] [place] [address], [place] [address] Nov, [facility] [address] [id number] [address] [place] [address], [place] [address] Oct, [facility] [address] [id number] [address] [place] [address], [place] [address] Oct, [facility] [address] [id number] [address] [place] [address], [place] [address] 31 Sep, 2011 [facility] [address] [id number] [address] [place] [address], [place] [address] 13 Sep, 2011 [facility] [address] [id number] [place] [address] Sep, [facility] [address] [facility] [id number] [address] [place] [address] Sep, [facility] [address] [facility] [id number] [address] [place] [address] Sep, [facility] [address] [facility] [id number] [address] [place] [address] Sep, [facility] [address] [facility] [id number] [address] [place] [address] Sep, IMMUNIZATIONS No Known Immunizations SOCIAL HISTORY Never Assessed REASON FOR VISIT PLAN OF CARE VITAL SIGNS Height 67 in 2013-05-03 Weight 149.31 lbs 2013-05-03 Temperature 97.3 degrees Fahrenheit 2013-05-03 Heart Rate 86 bpm 2013-05-03 Respiratory Rate 18 2013-05-03 Blood pressure systolic 116 mmHg 2013-05-03 Blood pressure diastolic 80 mmHg 2013-05-03 MEDICATIONS Unknown Medications RESULTS No Results PROCEDURES Procedure Date Ordered Result Body Site URINE TEST May 03, 2013 INSTRUCTIONS MEDICATIONS ADMINISTERED No Known Medications MEDICAL (GENERAL) HISTORY Type Description Date Medical History bipolar Medical History no hx of seizures Surgical History c-sections Hospitalization History x 6 Hospitalization History inpatient psychiatric age 19 dx bipo lar
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
[2020-05-14] MEDS: NS IV 1000 ML 1,000 ML IV SCH (17:58)
[2020-05-14 19:43] VITALS: BP 98/64
[2020-05-14] MEDS: IBUPROFEN 600 MG (MOTRIN) TAB PO PRN (20:00)
--- NOTE | 2020-05-14 20:38 | History & Physical-Hospitalist ---
History of Present Illness HPI/Chief Complaint CC: Fever with flank pain HPI: This is a 39yo female of [facility] who presents struggling with a kidney infection and was found to be dehydrated and feverish. She was placed on aggressive IV fluids and Rocephin empirically initiated. We will monitor her fever and provide supportive care. Source: patient, RN/MD Exam Limitations: no limitations Date Seen 05/14/20 Time Seen by a Provider: 10:00 Attending Physician Roseann Lux DO PCP Daphney Xie MD Referring Physician Date of Admission May 14, 2020 at 16:06 Home Medications & Allergies Home Medications Reviewed patient Home Medication Reconciliation performed by pharmacy medication reconciliations inorganic chemical technician and/or nursing. Patients Allergies have been reviewed. Allergies Allergies Coded Allergies oxycodone (Verified Allergy, Unknown, 07/06/07) Past Jtzuqxh-Urhkyc-Cjijnc Hx Past Med/Social Hx: Reviewed Nursing Past Med/Soc Hx, Reviewed and Corrections made Patient Social History Marrital Status: single Employed/Student: unemployed, retired Alcohol Use: Rarely Uses Number of Drinks Today: FF Alcohol Beverage of Choice: Beer, Vodka Recreational Drug Use: Yes Drug of Choice: HX: MJ Smoking Status: Current Everyday Smoker Type Used: Cigarettes (half pack per day) 2nd Hand Smoke Exposure: No Recent Foreign Travel: No Contact w/other who traveled: No Recent Infectious Disease Expo: No Immunizations Up To Date Tetanus Booster (TDap): Less than 5yrs Date of Influenza Vaccine: Aug 02, 2012 Past Medical History Surgeries: Abdominal, Section, Ear Surgery, Oophorectomy, Tubal Ligation Reproductive: Yes (ECTOPIC X2) Sexually Transmitted Disease: No HIV/AIDS: No Female Reproductive Disorders: Denies Tubal Ligation Gastrointestinal: Gastroesophageal Reflux Psychosocial: Bipolar Skin/Integumentary: Psoriasis History of Blood Disorders: Yes (anemia) Family History Cervical cacer 19 MOTHER FH: depression G8 BROTHER G8 BROTHER Kidney disease 19 MOTHER Review of Systems Constitutional: see HPI EENTM: see HPI Respiratory: see HPI Cardiovascular: see HPI Gastrointestinal: see HPI Genitourinary: see HPI Musculoskeletal: see HPI Skin: see HPI Psychiatric/Neurological: See HPI Physical Exam Physical Exam Vital Signs Vital Signs - First Documented 05/14/20 12:55 Temp 39.6 Pulse 116 Resp 20 B/P (MAP) 107/67 (80) Pulse Ox 97 O2 Delivery Room Air Capillary Refill : Less Than 3 SecondsLess Than 3 Seconds Height, Weight, BMI Height: 5'7.00" Weight: 130lbs. 0.0oz. [id number]; 24.81 BMI Method:Stated General Appearance: No Apparent Distress Eyes: Right Eye Normal Inspection, Right Eye PERRL HEENT: PERRL/EOMI, TMs Normal, Normal ENT Inspection, Pharynx Normal, Moist Mucous Membranes Neck: Full Range of Motion, Normal Inspection, Non Tender Respiratory: Chest Non Tender, Lungs Clear, Normal Breath Sounds, No Accessory Muscle Use, No Respiratory Distress Cardiovascular: Regular Rate, Rhythm, No Edema, No Gallop, No JVD, No Murmur, Normal Peripheral Pulses Gastrointestinal: Normal Bowel Sounds, No Organomegaly, No Pulsatile Mass, Non Tender, Soft Back: Normal Inspection, No CVA Tenderness, No Vertebral Tenderness Extremity: Normal Capillary Refill, Normal Inspection, Normal Range of Motion, Non Tender, No Calf Tenderness, No Pedal Edema Neurologic/Psychiatric: Alert, Oriented x3, No Motor/Sensory Deficits, Normal Mood/Affect Skin: Normal Color, Warm/Dry Lymphatic: No Adenopathy Results Results/Procedures Labs Laboratory Tests 05/14/20 13:25 05/15/20 05:43 Patient resulted labs reviewed. Assessment/Plan Admission Diagnosis Assessment: Acute pyelo UTI Fever Plan: IV antibiotics IV fluid Admission Status: Observation Reason for Inpatient Admission: pyelo Diagnosis/Problems Diagnosis/Problems (1) Sepsis Status: Acute Qualifiers: Sepsis type: sepsis due to unspecified organism Sepsis acute organ dysfunction status: without acute organ dysfunction Qualified Codes: A41.9 - Sepsis, unspecified organism (2) Pyelonephritis Status: Acute (3) Nausea & vomiting Status: Acute (4) Fever Status: Acute Clinical Quality Measures DVT/VTE Risk/Contraindication: Risk Factor Score Per Nursin RFS Level Per Nursing on Admit: 4+=Very High ROSEANN LUX DO May 14, 2020 20:38
[2020-05-14] MEDS ORDERED: fentaNYL INJECTION 100 MCG/2 ML AMP IVP PRN (22:15)
[2020-05-14] MEDS ORDERED: ALPRAZolam 0.25 MG (XANAX) TAB PO PRN (22:15)
[2020-05-14] MEDS ORDERED: MELATONIN 3 MG TABLET PO PRN (22:15)
[2020-05-14] MEDS ORDERED: diphenhydrAMINE 25 MG TAB (BENADRYL) PO PRN (22:15)
[2020-05-14] MEDS ORDERED: HYDROcodone/APAP 5 MG/325 MG (LORTAB) TAB PO PRN (22:15)
[2020-05-14] MEDS ORDERED: CALCIUM CARBONATE 500 MG (TUMS) TAB.CHEW PO PRN (22:15)
[2020-05-14] MEDS ORDERED: LOPERAMIDE 2 MG (IMODIUM) TABLET PO PRN (22:15)
[2020-05-15 00:48] VITALS: BP 101/66
[2020-05-15] MEDS: NS IV 1000 ML 1,000 ML IV SCH ×3 (01:19→08:16)
[2020-05-15 04:00] VITALS: BP 102/64
[2020-05-15] MEDS: IBUPROFEN 600 MG (MOTRIN) TAB PO PRN (04:15)
[2020-05-15 06:26] LABS: BASOPHILS % (AUTO) 0 % (0-10); EOSINOPHILS % (AUTO) 0 % (0-10); HEMATOCRIT 29 % (35-52); HEMOGLOBIN 9.5 G/DL (11.5-16.0); LYMPHOCYTES # (AUTO) 1.2 X 10^3 (1.0-4.0); LYMPHOCYTES % (AUTO) 11 % (12-44); MEAN CORPUSCULAR HEMOGLOBIN 31 PG (25-34); MEAN CORPUSCULAR HGB CONC 33 G/DL (32-36); MEAN CORPUSCULAR VOLUME 94 FL (80-99); MEAN PLATELET VOLUME 10.8 FL (7.4-10.4); MONOCYTES # (AUTO) 1.4 X 10^3 (0.0-1.0); MONOCYTES % (AUTO) 12 % (0-12); NEUTROPHILS # (AUTO) 8.6 X 10^3 (1.8-7.8); NEUTROPHILS % (AUTO) 77 % (42-75); PLATELET COUNT 203 10^3/uL (130-400); RED CELL DISTRIBUTION WIDTH 12.6 % (10.0-14.5); WHITE BLOOD COUNT 11.3 10^3/uL (4.3-11.0)
[2020-05-15 06:52] LABS: ALANINE AMINOTRANSFERASE 26 U/L (0-55); ALBUMIN 3.1 GM/DL (3.2-4.5); ALKALINE PHOSPHATASE 84 U/L (40-136); BILIRUBIN,TOTAL 0.4 MG/DL (0.1-1.0); BUN/CREATININE RATIO 6; CARBON DIOXIDE 21 MMOL/L (21-32); CHLORIDE 107 MMOL/L (98-107); CREATININE SERUM 0.68 MG/DL (0.60-1.30); GFR ESTIMATED > 60; GLUCOSE 104 MG/DL (70-105); POTASSIUM 3.2 MMOL/L (3.6-5.0); SODIUM 136 MMOL/L (135-145); TOTAL PROTEIN 5.7 GM/DL (6.4-8.2)
[2020-05-15 08:00] VITALS: BP 81/50
[2020-05-15] MEDS ORDERED: SENNA W/DOCUSATE (SENOKOT S) TABLET PO SCH (09:00)
[2020-05-15] MEDS ORDERED: CEFD300C3 PO (11:23)
[2020-05-15] MEDS ORDERED: ONDA4TAB11 PO (11:23)
[2020-05-15] MEDS ORDERED: KCL 10 MEQ TAB (MICRO K) PO NR (11:24)
--- NOTE | 2020-05-15 11:24 | Discharge Summary ---
Discharge Summary Hospital Course Was the Problem List Reviewed?: Yes Problems/Dx: (1) Fever Status: Acute (2) Pyelonephritis Status: Acute (3) Sepsis Status: Acute Qualifiers: Qualified Codes: A41.9 - Sepsis, unspecified organism Hospital Course Date of Admission: May 14, 2020 at 16:06 Admission Diagnosis : Family Physician/Provider: Daphney Xie MD Date of Discharge: 05/15/20 Discharge Diagnosis: Assessment: Acute pyelo UTI Fever Plan: IV antibiotics IV fluid Hospital Course: Hospital course: Pt had an uneventful hospital course she was admitted for acute pyelonephritis and fever, placed on IV fluids and Rocephin antibiotics, urine culture showed presumed E. Coli and Pt was deemed stable for discharge on oral antibiotics aft er aggressive IV fluids initiated. Labs and Pending Lab Test: Laboratory Tests 05/14/20 13:19: Urine Color YELLOW, Urine Clarity CLEAR, Urine pH 6.0, Urine Specific [place] 1.010L, Urine Protein 1+H, Urine Glucose (UA) NEGATIVE, Urine Ketones NEGATIVE, Urine Nitrite NEGATIVE, Urine Bilirubin NEGATIVE, Urine Urobilinogen 0.2, Urine Leukocyte Esterase 3+H, Urine RBC (Auto) 2+H, Urine RBC 2-5H, Urine WBC >100H, Urine Crystals NONE, Urine Bacteria FEWH, Urine Casts NONE, Urine Mucus NEGATIVE, Urine Culture Indicated YES, Urine Test NEGATIVE 05/14/20 13:25: White Blood Count 11.3H, Red Blood Count 3.69L, Hemoglobin 11.3L, Hematocrit 35, Mean Corpuscular Volume 94, Mean Corpuscular Hemoglobin 31, Mean Corpuscular Hemoglobin Concent 33, Red Cell Distribution Width 12.4, Platelet Count 249, Mean Platelet Volume 10.3, Neutrophils (%) (Auto) 77H, Lymphocytes (%) (Auto) 11L, Monocytes (%) (Auto) 12, Eosinophils (%) (Auto) 0, Basophils (%) (Auto) 0, Neutrophils # (Auto) 8.6H, Lymphocytes # (Auto) 1.3, Monocytes # (Auto) 1.3H, Eosinophils # (Auto) 0.0, Basophils # (Auto) 0.0, Prothrombin Time 13.8, INR Comment 1.0, Activated Partial Thromboplast Time 37H, Sodium Level 135, Potassium Level 3.8, Chloride Level 102, Carbon Dioxide Level 25, Anion Gap 8, Blood Urea Nitrogen 5L, Creatinine 0.81, Estimat Glomerular Filtration Rate > 60, BUN/Creatinine Ratio 6, Glucose Level 102, Lactic Acid Level 1.07, Calcium Level 8.9, Corrected Calcium 9.1, Total Bilirubin 0.3, Aspartate Amino Transf (AST/SGOT) 13, Alanine Aminotransferase (ALT/SGPT) 8, Alkaline Phosphatase 73, Total Protein 7.3, Albumin 3.8, Lipase 9 05/15/20 05:43: White Blood Count 11.3H, Red Blood Count 3.09L, Hemoglobin 9.5L, Hematocrit 29L, Mean Corpuscular Volume 94, Mean Corpuscular Hemoglobin 31, Mean Corpuscular Hemoglobin Concent 33, Red Cell Distribution Width 12.6, Platelet Count 203, Mean Platelet Volume 10.8H, Neutrophils (%) (Auto) 77H, Lymphocytes (%) (Auto) 11L, Monocytes (%) (Auto) 12, Eosinophils (%) (Auto) 0, Basophils (%) (Auto) 0, Neutrophils # (Auto) 8.6H, Lymphocytes # (Auto) 1.2, Monocytes # (Auto) 1.4H, Eo sinophils # (Auto) 0.0, Basophils # (Auto) 0.0, Sodium Level 136, Potassium Level 3.2L, Chloride Level 107, Carbon Dioxide Level 21, Anion Gap 8, Blood Urea Nitrogen 4L, Creatinine 0.68, Estimat Glomerular Filtration Rate > 60, BUN/Creatinine Ratio 6, Glucose Level 104, Calcium Level 8.0L, Corrected Calcium 8.7, Total Bilirubin 0.4, Aspartate Amino Transf (AST/SGOT) 42H, Alanine Aminotransferase (ALT/SGPT) 26, Alkaline Phosphatase 84, Total Protein 5.7L, Albumin 3.1L Microbiology 05/14/20 Urine Culture - Preliminary, Resulted Probable E.coli Home Meds Active Cefdinir 300 Mg Capsule 300 Mg PO BID Ondansetron Odt (Ondansetron) 4 Mg Tab.rapdis 4 Mg PO Q6H PRN Reported [zofran] Assessment/Pt Instructions chc 1 week Discharge Planning: <30 minutes discharge planning Discharge Instructions Discharge Diet: No Restrictions Activity as Tolerated: Yes Discharge Physical Examination Vital Signs Vital Signs Date Time Temp Pulse Resp B/P (MAP) Pulse Ox O2 Delivery O2 Flow Rate FiO2 05/15/20 08:00 36.4 87 20 81/50 (60) 97 Room Air General Appearance: No Apparent Distress, WD/WN HEENT: PERRL/EOMI, TMs Normal, Normal ENT Inspection, Pharynx Normal, Moist Mucous Membranes Respiratory: Chest Non Tender, Lungs Clear, Normal Breath Sounds, No Accessory Muscle Use, No Respiratory Distress Cardiovascular: Regular Rate, Rhythm, No Edema, No Gallop, No JVD, No Murmur, Normal Peripheral Pulses Gastrointestinal: Normal Bowel Sounds, No Organomegaly, No Pulsatile Mass, Non Tender, Soft Extremity: Normal Capillary Refill, Normal Inspection, Normal Range of Motion, Non Tender, No Calf Tenderness, No Pedal Edema Skin: Normal Color, Warm/Dry Neurologic/Psychiatric: Alert, Oriented x3, No Motor/Sensory Deficits, Normal Mood/Affect Allergies: Coded Allergies: oxycodone (Verified Allergy, Unknown, 07/06/07) Discharge Summary Date of Admission May 14, 2020 at 16:06 Date of Discharge Discharge Date: May 15, 2020 Clinical Quality Measures DVT/VTE Risk/Contraindication: Risk Factor Score Per Nursin RFS Level Per Nursing on Admit: 4+=Very High WILLIE GARCIA DO May 15, 2020 11:24
--- NOTE | 2020-05-15 13:19 | NUR ---
RD ASSESSMENT PMHx: GERD; PT INTERACTION: Pt was awake and pleasant during nutrition assessment. Pt states current appetite is "slowly coming back," after having been poor for about 1w. Note PO intake 50% x1meal, per chart review. Pt states she follows a regular diet, but watches her chol intake. Pt states no issues with chewing/swallowing food. Pt states recent issues with nausea and constipation, and that her last BM was 05/12. Note pt currently on bowel regimen of senna BID, per chart review. Pt states no recent wt changes. Note recent 11# wt gain x2mon, per chart review. ABNORMAL NUTRITION-RELATED LAB VALUES LOW: K 3.2; BUN 4; Ca 8.0; Pro 5.7; alb 3.1 HIGH: AST 42 Est. kcal needs: 1800 kcal | 25 kcal/kg Est. Pro needs: 57 g Pro | 0.8 g Pro/kg PES STATEMENT: Inadequate oral intake (NI-2.1) related to loss of appetite | nausea | constipation as evidenced by pt interview | PO intake 50% x1meal INTERVENTION: Continue with current diet order of Regular diet. Pt may benefit from nutrition supplementation if PO intake declines. Encouraged pt to eat when able. Will continue to follow and reassess as pt needs, intake, and status change. MONITOR/EVALUATE: PO Intake; Plan of Care; Hydration Status; Weight Status; Lab Values Theodore Ray, , RD, LD
[2020-05-15] MEDS ORDERED: cefTRIAXone 1,000 MG/SWFI 10 ML IV PUSH IV SCH ×2 (14:00)
== END 2020-05-15 12:12 | disposition home or self-care (01) | DRG 872 ==
LOC: EDUNIT# 12:55 → ER 12:56 → UNDOADMIN 16:06 → 4TH 16:06
PROVIDERS: ADMIT Internal Medicine; ATTEND Internal Medicine
DX: A41.51 Sepsis due to Escherichia coli [E. coli] (principal); N10 Acute pyelonephritis; E86.0 Dehydration; F17.210 Nicotine dependence, cigarettes, uncomplicated; K21.9 Gastro-esophageal reflux disease without esophagitis; F31.9 Bipolar disorder, unspecified; D64.9 Anemia, unspecified
CPT/HCPCS: 36415; 71045; 80053; 81000; 83605; 83690; 84703; 85025; 85610; 85730; 87040; 87077; 87088; 87186

== ENCOUNTER 2023-01-29 15:16 | Emergency (ER) | payer MEDICAID ==
[~2023-01-29] VITALS: Ht 170 cm; Wt 68.0 kg
[~2023-01-29 15:16] MED LIST changes: +CEFD300C3 PO; -HYDR-3812 PO
--- NOTE | 2023-01-29 16:07 | ED Psychosocial ---
General Chief Complaint: Psych/Social Disorder Stated Complaint: ANXIETY Nursing Triage Note: ARRIVED VIA EMS FROM THE ALLEY WITH COMPLAINTS OF RESP ISSUES X1 WEEK AND FLUIDS COMING OUT OF EVERYWHERE IN HER BODY. Source: patient Exam Limitations: no limitations History of Present Illness Date Seen by Provider: Jan 29, 2023 Time Seen by Provider: 15:28 Allergies and Home Medications Allergies Coded Allergies: oxycodone (Verified Allergy, Unknown, 07/06/07) Patient Home Medication List Cefdinir (Cefdinir) 300 Mg Capsule, 300 MG PO BID Prescribed by: WILLIE GARCIA on 05/15/20 1123 Ondansetron (Ondansetron Odt) 4 Mg Tab.rapdis, 4 MG PO Q6H PRN for NAUSEA/VOMITING Prescribed by: WILLIE GARCIA on 05/15/20 1123 Past Bokixdg-Ymlqap-Zevrwd Hx Patient Social History Tobacco Use?: Yes Tobacco type used: Cigarettes Substance use?: Yes Substance type: Marijuana Alcohol Use?: Yes Alcohol Frequency: Couple times a week Immunizations Up To Date Tetanus Booster (TDap): Less than 5yrs Past Medical History Surgeries: Yes (C/S X6, INCISIONAL HERNIA REPAIR X4, DXLS, TUBES IN EARS, RSO) Abdominal, Section, Ear Surgery, Oophorectomy, Tubal Ligation Respiratory: No Cardiac: No Neurological: No Reproductive Disorders: Yes (ECTOPIC X2) Female Reproductive Disorders: Denies 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 0.0oz. [id number]; 23.00 BMI Method:Stated Progress/Results/Core Measures Results/Orders Lab Results Laboratory Tests Test 01/29/23 15:24 01/29/23 15:25 Range/Units White Blood Count 7.8 4.3-11.0 10^3/uL Red Blood Count 3.83 3.80-5.11 10^6/uL Hemoglobin 11.9 11.5-16.0 g/dL Hematocrit 35 35-52 % Mean Corpuscular Volume 92 80-99 fL Mean Corpuscular Hemoglobin 31 25-34 pg Mean Corpuscular Hemoglobin Concent 34 32-36 g/dL Red Cell Distribution Width 11.9 10.0-14.5 % Platelet Count 318 130-400 10^3/uL Mean Platelet Volume 10.5 9.0-12.2 fL Immature Granulocyte % (Auto) 0 % Neutrophils (%) (Auto) 63 42-75 % Lymphocytes (%) (Auto) 27 12-44 % Monocytes (%) (Auto) 7 0-12 % Eosinophils (%) (Auto) 2 0-10 % Basophils (%) (Auto) 1 0-10 % Neutrophils # (Auto) 4.9 1.8-7.8 10^3/uL Lymphocytes # (Auto) 2.1 1.0-4.0 10^3/uL Monocytes # (Auto) 0.6 0.0-1.0 10^3/uL Eosinophils # (Auto) 0.1 0.0-0.3 10^3/uL Basophils # (Auto) 0.1 0.0-0.1 10^3/uL Immature Granulocyte # (Auto) 0.0 0.0-0.1 10^3/uL Sodium Level 142 135-145 MMOL/L Potassium Level 3.2 L 3.6-5.0 MMOL/L Chloride Level 108 H 98-107 MMOL/L Carbon Dioxide Level 24 21-32 MMOL/L Anion Gap 10 5-14 MMOL/L Blood Urea Nitrogen 10 7-18 MG/DL Creatinine 0.70 0.60-1.30 MG/DL Estimat Glomerular Filtration Rate 111 BUN/Creatinine Ratio 14 Glucose Level 89 70-105 MG/DL Calcium Level 9.4 8.5-10.1 MG/DL Corrected Calcium 9.2 8.5-10.1 MG/DL Magnesium Level 1.8 1.6-2.4 MG/DL Total Bilirubin 0.3 0.1-1.0 MG/DL Aspartate Amino Transf (AST/SGOT) 24 5-34 U/L Alanine Aminotransferase (ALT/SGPT) 20 0-55 U/L Alkaline Phosphatase 66 40-136 U/L Total Protein 7.6 6.4-8.2 GM/DL Albumin 4.3 3.2-4.5 GM/DL TSH Schley Testing 2.53 0.35-4.94 UIU/ML Serum Test, Qualitative NEGATIVE NEGATIVE Serum Alcohol < 10 <10 MG/DL Urine Color YELLOW Urine Clarity CLEAR Urine pH 5.5 5-9 Urine Specific [place] >=1.030 1.016-1.022 Urine Protein NEGATIVE NEGATIVE Urine Glucose (UA) NEGATIVE NEGATIVE Urine Ketones NEGATIVE NEGATIVE Urine Nitrite POSITIVE H NEGATIVE Urine Bilirubin NEGATIVE NEGATIVE Urine Urobilinogen 0.2 < = 1.0 MG/DL Urine Leukocyte Esterase NEGATIVE NEGATIVE Urine RBC (Auto) 1+ H NEGATIVE Urine RBC NONE /HPF Urine WBC RARE /HPF Urine Squamous Epithelial Cells 5-10 /HPF Urine Crystals NONE /LPF Urine Bacteria TRACE /HPF Urine Casts NONE /LPF Urine Mucus SMALL H /LPF Urine Culture Indicated YES Urine Opiates Screen NEGATIVE NEGATIVE Urine Oxycodone Screen NEGATIVE NEGATIVE Urine Methadone Screen NEGATIVE NEGATIVE Urine Propoxyphene Screen NEGATIVE NEGATIVE Urine Barbiturates Screen NEGATIVE NEGATIVE Ur Tricyclic Antidepressants Screen NEGATIVE NEGATIVE Urine Phencyclidine Screen NEGATIVE NEGATIVE Urine Amphetamines Screen POSITIVE H NEGATIVE Urine Methamphetamines Screen POSITIVE H NEGATIVE Urine Benzodiazepines Screen NEGATIVE NEGATIVE Urine Cocaine Screen NEGATIVE NEGATIVE Urine Cannabinoids Screen POSITIVE H NEGATIVE My Orders Orders - MATT JON MD Alcohol (01/29/23 16:04) Cbc With Automated Diff (01/29/23 16:04) Comprehensive Metabolic Panel (01/29/23 16:04) Drug Screen Stat (Urine) (01/29/23 16:04) Hcg,Qualitative Serum (01/29/23 16:04) Magnesium (01/29/23 16:04) Thyroid Analyzer (01/29/23 16:04) Ua Culture If Indicated (01/29/23 16:04) Urine Culture (01/29/23 15:25) Potassium Chloride (Tablet) (Klor Con Ta (01/29/23 17:00) Medications Given in ED Current Medications Medications Dose Ordered Sig/Marlen Route Start Time Stop Time Status Last Admin Dose Admin Potassium Chloride 20 meq ONCE ONCE PO 01/29/23 17:00 01/29/23 17:01 DC 01/29/23 17:07 20 MEQ Vital Signs/I&O 01/29/23 15:18 Temp 36.2 Pulse 97 Resp 16 B/P (MAP) 125/85 (98) Pulse Ox 100 O2 Delivery Room Air Blood Pressure Mean: 98 Departure Impression Primary Impression: Otitis externa Qualified Codes: H60.503 - Unspecified acute noninfective otitis externa, bilateral Additional Impressions: Hypokalemia Polysubstance abuse Anxiety Disposition: 01 HOME, SELF-CARE Condition: Stable Departure-Patient Inst. Decision time for Depature: 17:16 Referrals: YAHIR LOVING MD (PCP/Family) Primary Care Physician Patient Instructions: Outer Ear Infection ED, ALCOHOL AND SUBSTANCE ABUSE Add. Discharge Instructions: Drink plenty of clear liquids to stay well-hydrated and eat a well-balanced diet. Use the antibiotics as prescribed for the infection in your ear canals and around your ears. Use the eardrops also as prescribed to help reduce inflammation of your ears. Follow-up with your primary care provider as soon as possible. Seek counseling with a behavioral health provider as well for your anxiety. Avoid any mind altering substances that could worsen your anxiety and emotional strain including marijuana, alcohol, methamphetamine, etc. Return to the emergency room if you have worsening symptoms despite following these instructions. All discharge instructions reviewed with patient and/or family. Voiced understanding. Scripts Neomycin/Polymyxin B Sulf/Hc (Hmklxxhr-Oniagigbu-Rv Ear Soln) 3.5 Mg/Ml-10,000 Unit/Ml-1 % Solution 4 DROPS EACH EAR TID for 7 Days, #1 EA Prov: MATT JON MD 01/29/23 Cephalexin (Cephalexin) 500 Mg Tablet 500 MG PO TID, #21 TAB Prov: MATT JON MD 01/29/23 MTAT JON MD Jan 29, 2023 16:07
[2023-01-29 16:11] LABS: BASOPHILS # (AUTO) 0.1 10^3/uL (0.0-0.1); BASOPHILS % (AUTO) 1 % (0-10); EOSINOPHILS # (AUTO) 0.1 10^3/uL (0.0-0.3); EOSINOPHILS % (AUTO) 2 % (0-10); HEMATOCRIT 35 % (35-52); HEMOGLOBIN 11.9 g/dL (11.5-16.0); LYMPHOCYTES # (AUTO) 2.1 10^3/uL (1.0-4.0); LYMPHOCYTES % (AUTO) 27 % (12-44); MEAN CORPUSCULAR HEMOGLOBIN 31 pg (25-34); MEAN CORPUSCULAR HGB CONC 34 g/dL (32-36); MEAN CORPUSCULAR VOLUME 92 fL (80-99); MEAN PLATELET VOLUME 10.5 fL (9.0-12.2); MONOCYTES # (AUTO) 0.6 10^3/uL (0.0-1.0); MONOCYTES % (AUTO) 7 % (0-12); NEUTROPHILS # (AUTO) 4.9 10^3/uL (1.8-7.8); NEUTROPHILS % (AUTO) 63 % (42-75); PLATELET COUNT 318 10^3/uL (130-400); WHITE BLOOD COUNT 7.8 10^3/uL (4.3-11.0)
[2023-01-29 16:17] LABS: ALBUMIN 4.3 GM/DL (3.2-4.5); CHLORIDE 108 MMOL/L (98-107); POTASSIUM 3.2 MMOL/L (3.6-5.0); SODIUM 142 MMOL/L (135-145)
[2023-01-29 16:18] LABS: CALCIUM 9.4 MG/DL (8.5-10.1)
[2023-01-29 16:19] LABS: GLUCOSE 89 MG/DL (70-105); TOTAL PROTEIN 7.6 GM/DL (6.4-8.2)
[2023-01-29 16:20] LABS: CARBON DIOXIDE 24 MMOL/L (21-32)
[2023-01-29 16:21] LABS: BILIRUBIN,TOTAL 0.3 MG/DL (0.1-1.0)
[2023-01-29 16:23] LABS: ALKALINE PHOSPHATASE 66 U/L (40-136); GFR ESTIMATED 111
[2023-01-29 16:24] LABS: BUN/CREATININE RATIO 14
[2023-01-29 16:26] LABS: ALANINE AMINOTRANSFERASE 20 U/L (0-55); MAGNESIUM 1.8 MG/DL (1.6-2.4)
[2023-01-29 16:38] LABS: BILIRUBIN,URINE NEGATIVE (NEGATIVE); CLARITY,URINE CLEAR; COLOR,URINE YELLOW; GLUCOSE, URINE (UA) NEGATIVE (NEGATIVE); KETONES,URINE NEGATIVE (NEGATIVE); LEUKOCYTE ESTERASE ,URINE NEGATIVE (NEGATIVE); NITRITE,URINE POSITIVE (NEGATIVE); PH,URINE 5.5 (5-9); PROTEIN,URINE NEGATIVE (NEGATIVE)
[2023-01-29 16:45] LABS: BACTERIA,URINE TRACE /HPF; WBC,URINE RARE /HPF
[2023-01-29 16:46] LABS: TSH (THYROID ANALYZER) 2.53 UIU/ML (0.35-4.94)
[2023-01-29 16:49] LABS: AMPHETAMINE SCREEN, URINE POSITIVE (NEGATIVE); BARBITURATE SCREEN URINE NEGATIVE (NEGATIVE); BENZODIAZEPINES SCREEN URINE NEGATIVE (NEGATIVE); CANNABINOID SCREEN, URINE POSITIVE (NEGATIVE); COCAINE SCREEN URINE NEGATIVE (NEGATIVE); METHADONE STAT NEGATIVE (NEGATIVE); OPIATE SCREEN URINE NEGATIVE (NEGATIVE); OXYCODONE STAT NEGATIVE (NEGATIVE); PROPOXYPHENE STAT NEGATIVE (NEGATIVE); TRICYCLIC ANTIDEPRESSANTS SCRE NEGATIVE (NEGATIVE)
[2023-01-29] MEDS ORDERED: KCL 10 MEQ TAB (MICRO K) PO ONE (17:00)
[2023-01-29] MEDS ORDERED: NEOM10SO8 EACH EAR (17:27)
[2023-01-29] MEDS ORDERED: CEPH500T PO (17:27)
[2023-01-29 17:37] VITALS: BP 121/83
== END 2023-01-29 17:37 | disposition home or self-care (01) ==
LOC: EDUNIT# 15:16 → ER 15:18
DX: F41.9 Anxiety disorder, unspecified (principal); H60.93 Unspecified otitis externa, bilateral; E87.6 Hypokalemia; F19.10 Other psychoactive substance abuse, uncomplicated; F17.210 Nicotine dependence, cigarettes, uncomplicated; Z96.22 Myringotomy tube(s) status; Z28.310 Unvaccinated for COVID-19
CPT/HCPCS: 36415; 80053; 80306; 80320; 81000; 83735; 84443; 84703; 85025; 87088

== ENCOUNTER 2023-07-31 17:02 | Emergency (ER) | payer MEDICAID ==
[~2023-07-31] VITALS: Ht 170 cm; Wt 75.0 kg
[~2023-07-31 17:02] MED LIST changes: +CEPH500T PO; +NEOM10SO8 EACH EAR
[2023-07-31 17:32] LABS: BACTERIA,URINE FEW /HPF; BILIRUBIN,URINE NEGATIVE (NEGATIVE); CLARITY,URINE CLEAR; COLOR,URINE YELLOW; GLUCOSE, URINE (UA) NEGATIVE (NEGATIVE); KETONES,URINE NEGATIVE (NEGATIVE); LEUKOCYTE ESTERASE ,URINE NEGATIVE (NEGATIVE); NITRITE,URINE NEGATIVE (NEGATIVE); PROTEIN,URINE NEGATIVE (NEGATIVE); RBC,URINE RARE /HPF; WBC,URINE RARE /HPF
[2023-07-31 17:51] LABS: BASOPHILS % (AUTO) 1 % (0-10); EOSINOPHILS # (AUTO) 0.1 10^3/uL (0.0-0.3); EOSINOPHILS % (AUTO) 2 % (0-10); HEMATOCRIT 39 % (35-52); HEMOGLOBIN 12.6 g/dL (11.5-16.0); LYMPHOCYTES # (AUTO) 2.3 10^3/uL (1.0-4.0); LYMPHOCYTES % (AUTO) 37 % (12-44); MEAN CORPUSCULAR HEMOGLOBIN 29 pg (25-34); MEAN CORPUSCULAR HGB CONC 32 g/dL (32-36); MEAN CORPUSCULAR VOLUME 89 fL (80-99); MEAN PLATELET VOLUME 10.1 fL (9.0-12.2); MONOCYTES # (AUTO) 0.8 10^3/uL (0.0-1.0); MONOCYTES % (AUTO) 13 % (0-12); NEUTROPHILS % (AUTO) 48 % (42-75); PLATELET COUNT 238 10^3/uL (130-400); WHITE BLOOD COUNT 6.3 10^3/uL (4.3-11.0)
[2023-07-31 17:55] LABS: ALBUMIN 4.1 GM/DL (3.2-4.5); POTASSIUM 3.7 MMOL/L (3.6-5.0)
--- NOTE | 2023-07-31 17:56 | ED Abdominal Pain ---
General Chief Complaint: - Reproductive Stated Complaint: BACK PAIN, CRAMPING, TROUBLE URINATING Nursing Triage Note: PT STATES MID CHEST PAIN THAT DROPPED INTO ABD, STARTED ABOUT 10 THIS A.M., PT TEARFUL ON ARRIVAL HOLDING ABD, HX OF GERD, PT DID GET SEPTIC LAST YR FROM [facility] Source of Information: Patient Exam Limitations: No Limitations History of Present Illness Date Seen by Provider: Jul 31, 2023 Time Seen by Provider: 17:14 Initial Comments 42-year-old female presents to the ER with reports of chest pain starting at 10 AM this morning, states that the pain moved into her upper abdomen, worse on the left side. She describes this pain as a cramping pain. She also complains of sharp stabbing pain cross her mid back, worse on the left. She reports nausea, no vomiting. Denies fevers, diarrhea, vaginal bleeding, discharge, dysuria. Last bowel movement was at 2 PM today and normal. Last menstrual cycle was 3 weeks ago. Patient has had a cholecystectomy and a tubal ligation. Allergies and Home Medications Allergies Coded Allergies: oxycodone (Verified Allergy, Unknown, 07/06/07) Patient Home Medication List Home Medication List Reviewed: Yes Amoxicillin/Potassium Clav (Amox Tr-K Clv 875-125 mg Tab) 875 Mg-125 Mg Tablet, 1 EACH PO BID Prescribed by: Pearl Banks on 07/31/231954 Cefdinir (Cefdinir) 300 Mg Capsule, 300 MG PO BID Prescribed by: WILLIE GARCIA on 05/15/201122 Cephalexin (Cephalexin) 500 Mg Tablet, 500 MG PO TID Prescribed by: MATT BISHOP on 01/29/231726 Neomycin/Polymyxin B Sulf/Hc (Auasmayc-Kbvqwamdo-Jy Ear Soln) 3.5 Mg/Ml-10,000 Unit/Ml-1 % Solution, 4 DROPS EACH EAR TID Prescribed by: MATT BISHOP on 01/29/231726 Ondansetron (Ondansetron Odt) 4 Mg Tab.rapdis, 4 MG PO Q6H PRN for NAUSEA/VOMITING Prescribed by: WILLIE GARCIA on 05/15/201122 Ondansetron (Ondansetron Odt) 4 Mg Tab.rapdis, 4 MG SL Q4H PRN for NAUSEA/VOMITING Prescribed by: Pearl Banks on 07/31/231954 Tramadol HCl (Tramadol HCl) 50 Mg Tablet, 50 MG PO Q6H Prescribed by: Pearl Banks on 07/31/231955 Review of Systems Review of Systems Constitutional: see HPI Past Aaytidc-Dhkkdn-Avyxwh Hx Patient Social History Tobacco Use?: Yes Tobacco type used: Cigarettes Smoking Status: Current Everyday Smoker Substance use?: Yes Substance type: Marijuana Alcohol Use?: Yes Alcohol Frequency: Once in a while Immunizations Up To Date Tetanus Booster (TDap): Less than 5yrs Past Medical History Surgery/Hospitalization HX: UTI'S, "SUGAR ISSUES," 6 C SECTIONS Surgeries: Yes (C/S X6, INCISIONAL HERNIA REPAIR X4, DXLS, TUBES IN EARS, RSO) Abdominal, Section, Ear Surgery, Oophorectomy, Tubal Ligation Respiratory: No Cardiac: No Neurological: No Reproductive Disorders: Yes (ECTOPIC X2) Female Reproductive Disorders: Denies [employer] History: Tubal Ligation Sexually Transmitted Disease: No HIV/AIDS: No Gastrointestinal: Yes Gastroesophageal Reflux Musculoskeletal: Yes (HERNIATED DISC) Endocrine: Yes (Gestational diabetes, hypoglycemia) Cancer: No Psychosocial: Yes Bipolar Integumentary: Yes Psoriasis Blood Disorders: Yes (anemia) Family Medical History Cervical cacer 19 MOTHER FH: depression G8 BROTHER G8 BROTHER Kidney disease 19 MOTHER Physical Exam Vital Signs Vital Signs - First Documented 07/31/23 17:10 Temp 36.9 Pulse 87 Resp 22 B/P (MAP) 129/103 (112) Pulse Ox 99 O2 Delivery Room Air Capillary Refill : Less Than 3 Seconds Height/Weight/BMI Height: 5'7.00" Weight: 130lbs. 0.0oz. [id number]; 25.00 BMI Method:Stated General Appearance: moderate distress Neck: supple, normal inspection Respiratory: lungs clear, normal breath sounds, no respiratory distress, no accessory muscle use Cardiovascular: regular rate, rhythm Gastrointestinal: normal bowel sounds, soft; No guarding; tenderness (Bilateral upper abdomen, worse in the left upper abdomen) Extremities: normal range of motion, normal inspection Back: normal inspection, no CVA tenderness Neurologic/Psychiatric: alert, normal mood/affect Skin: normal color, warm/dry Progress/Results/Core Measures Results/Orders Lab Results Laboratory Tests Test 07/31/23 17:15 07/31/23 17:30 Range/Units Urine Color YELLOW Urine Clarity CLEAR Urine pH 6.0 5-9 Urine Specific [place] 1.025 H 1.016-1.022 Urine Protein NEGATIVE NEGATIVE Urine Glucose (UA) NEGATIVE NEGATIVE Urine Ketones NEGATIVE NEGATIVE Urine Nitrite NEGATIVE NEGATIVE Urine Bilirubin NEGATIVE NEGATIVE Urine Urobilinogen 0.2 < = 1.0 MG/DL Urine Leukocyte Esterase NEGATIVE NEGATIVE Urine RBC (Auto) TRACE H NEGATIVE Urine RBC RARE /HPF Urine WBC RARE /HPF Urine Squamous Epithelial Cells 10-25 H /HPF Urine Crystals NONE /LPF Urine Bacteria FEW H /HPF Urine Casts NONE /LPF Urine Mucus NEGATIVE /LPF Urine Culture Indicated NO White Blood Count 6.3 4.3-11.0 10^3/uL Red Blood Count 4.40 3.80-5.11 10^6/uL Hemoglobin 12.6 11.5-16.0 g/dL Hematocrit 39 35-52 % Mean Corpuscular Volume 89 80-99 fL Mean Corpuscular Hemoglobin 29 25-34 pg Mean Corpuscular Hemoglobin Concent 32 32-36 g/dL Red Cell Distribution Width 16.1 H 10.0-14.5 % Platelet Count 238 130-400 10^3/uL Mean Platelet Volume 10.1 9.0-12.2 fL Immature Granulocyte % (Auto) 0 % Neutrophils (%) (Auto) 48 42-75 % Lymphocytes (%) (Auto) 37 12-44 % Monocytes (%) (Auto) 13 H 0-12 % Eosinophils (%) (Auto) 2 0-10 % Basophils (%) (Auto) 1 0-10 % Neutrophils # (Auto) 3.0 1.8-7.8 10^3/uL Lymphocytes # (Auto) 2.3 1.0-4.0 10^3/uL Monocytes # (Auto) 0.8 0.0-1.0 10^3/uL Eosinophils # (Auto) 0.1 0.0-0.3 10^3/uL Basophils # (Auto) 0.0 0.0-0.1 10^3/uL Immature Granulocyte # (Auto) 0.0 0.0-0.1 10^3/uL Sodium Level 137 135-145 MMOL/L Potassium Level 3.7 3.6-5.0 MMOL/L Chloride Level 107 98-107 MMOL/L Carbon Dioxide Level 19 L 21-32 MMOL/L Anion Gap 11 5-14 MMOL/L Blood Urea Nitrogen 5 L 7-18 MG/DL Creatinine 0.76 0.60-1.30 MG/DL Estimat Glomerular Filtration Rate 100 BUN/Creatinine Ratio 7 Glucose Level 103 70-105 MG/DL Calcium Level 9.0 8.5-10.1 MG/DL Corrected Calcium 8.9 8.5-10.1 MG/DL Total Bilirubin 0.4 0.1-1.0 MG/DL Aspartate Amino Transf (AST/SGOT) 21 5-34 U/L Alanine Aminotransferase (ALT/SGPT) 14 0-55 U/L Alkaline Phosphatase 96 40-136 U/L Troponin I < 0.028 <0.028 NG/ML Total Protein 7.6 6.4-8.2 GM/DL Albumin 4.1 3.2-4.5 GM/DL Lipase 14 8-78 U/L My Orders Orders - PEARL NORWOOD APRN Ua Culture If Indicated (07/31/23 17:14) Urine Bedside (07/31/23 17:14) Comprehensive Metabolic Panel (07/31/23 17:45) Lipase (07/31/23 17:45) Ed Iv/Invasive Line Start (07/31/23 17:45) Cbc And Automated Diff (07/31/23 17:45) Fentanyl Injection (Fentanyl Injection (07/31/23 18:00) Ondansetron Injection (Ondansetron Inj (07/31/23 18:00) Ns Iv 1000 Ml (Ns Iv 1000 Ml) (07/31/23 18:00) Troponin I [place] (07/31/23 17:48) Ekg Tracing (07/31/23 17:48) Ct Abdomen/Pelvis W (07/31/23 18:16) Iohexol Injection (Omnipaque 350 Mg/Ml 1 (07/31/23 18:30) Ns (Ivpb) 100 Ml (Sodium Chloride 0.9% 1 (07/31/23 18:30) Fentanyl Injection (Fentanyl Injection (07/31/23 19:15) Rx-Tramadol Hcl (Rx-Ultram) (07/31/23 19:48) Amoxicillin/Clavulanate Tablet (Amoxicil (07/31/23 20:00) Medications Given in ED Current Medications Medications Dose Ordered Sig/Marlen Route Start Time Stop Time Status Last Admin Dose Admin Amoxicillin/ Clavulanate Potassium 875 mg ONCE ONCE PO 07/31/23 20:00 07/31/23 20:01 DC 07/31/23 20:01 875 MG Fentanyl Citrate 75 mcg ONCE ONCE IVP 07/31/23 18:00 07/31/23 18:01 DC 07/31/23 18:00 75 MCG Fentanyl Citrate 75 mcg ONCE ONCE IVP 07/31/23 19:15 07/31/23 19:16 DC 07/31/23 19:19 75 MCG Iohexol 100 ml ONCE ONCE IV 07/31/23 18:30 07/31/23 18:31 DC 07/31/23 18:40 80 ML Ondansetron HCl 4 mg ONCE ONCE IVP 07/31/23 18:00 07/31/23 18:01 DC 07/31/23 18:00 4 MG Sodium Chloride 100 ml ONCE ONCE IV 07/31/23 18:30 07/31/23 18:31 DC 07/31/23 18:40 80 ML Vital Signs/I&O 07/31/23 07/31/23 07/31/23 17:10 18:00 20:03 Temp 36.9 36.9 36.9 Pulse 87 74 Resp 22 16 B/P (MAP) 129/103 (112) 100/68 Pulse Ox 99 99 O2 Delivery Room Air Room Air Blood Pressure Mean: 112 Progress Progress Note : Progress Note Patient seen and evaluated, lying in bed, moderate distress. Based on exam and symptoms, work-up initiated including CBC, CMP, lipase, troponin, EKG, urinalysis, urine . Fentanyl, Zofran, IV fluids ordered. [address] reviewed. CBC grossly normal. CMP grossly normal. Troponin negative. Lipase normal. Urinalysis shows trace RBCs, negative for infection. CT shows mild wall thickening in the left hemicolon which could be due to infectious or inflammatory colitis. Results discussed with patient. Will treat with Augmentin for possible bacterial cause of colitis. Will also provide prescription for Zofran extremities. Patient instructed to follow-up with primary care provider if symptoms do not improve. Patient was instructed to consume a clear liquid diet for the next 24 to 48 hours. Patient had improvement in pain after 2 doses of fentanyl. Patient is stable for discharge. Discharge instructions and return precautions provided. Initial ECG Impression Date: Jul 31, 2023 Initial ECG Impression Time: 18:11 Initial ECG Rate: 70 Initial ECG Rhythm: Normal Sinus Initial ECG Intervals: Normal Initial ECG Impression: Normal Initial ECG Comparisson: No Previous ECG Available Diagnostic Imaging Diagonstic Imaging: CT Plain Films/CT/US/NM/MRI: abdomen, pelvis Comments [facility] [place], [place] NAME: LUCY RESENDEZ [facility] REC#: [id number] PT STATUS: REG ER : 1980 PHYSICIAN: PEARL NORWOOD ELECTROLYSIST ADMIT DATE: 07/31/23/ER Signed Date of Exam:07/31/23 CT ABDOMEN/PELVIS W EXAMINATION: CT abdomen and pelvis with intravenous contrast. TECHNIQUE: Multiple contiguous axial images were obtained through the abdomen and pelvis after the uneventful administration of intravenous contrast. All CT scans use one or more of the following dose optimizing techniques: automated exposure control, MA and/or KvP adjustment based on patient size and exam type or iterative reconstruction. HISTORY: Abdominal pain COMPARISON: None available. FINDINGS: Lung bases: Bibasilar dependent atelectasis. Solid organs: The liver is normal without focal lesion. The gallbladder is surgically absent. There is mild biliary ductal dilatation which may be secondary to reservoir effect from prior cholecystectomy. Pancreas is normal. Spleen is normal. Adrenal glands are normal. The kidneys are normal without hydronephrosis. Bowel: The stomach and small bowel are normal without obstruction. There is mild wall thickening seen within the left hemicolon. The appendix is normal. Peritoneum: There is no intraperitoneal free fluid or free air. No suspicious lymphadenopathy. Vasculature: Normal without aneurysm. Musculoskeletal: Degenerative changes of the spine without suspicious osseous lesion or compression fracture. Surgical changes of the right abdominal wall likely from prior hernia repair. Pelvis: The uterus and adnexa are normal. The urinary bladder is normal. IMPRESSION: 1. Mild wall thickening in the left hemicolon which could be seen with infectious or inflammatory colitis. Dictated by: Dictated on workstation # [id number] Dict: 07/31/233 Trans: 07/31/231902 [facility] [id number] Interpreted by: WINTER GUTHRIE DO Electronically signed by: WINTER GUTHRIE DO 07/31/231902 Departure Impression Primary Impression: Colitis Disposition: 01 HOME, SELF-CARE Condition: Stable Departure-Patient Inst. Decision time for Depature: 19:50 Referrals: YAHIR LOVING MD (PCP/Family) Primary Care Physician Patient Instructions: Clear Liquid Diet, Colitis Add. Discharge Instructions: Consume a clear liquid diet for the next 24-48 hours. This includes water, broth, tea, Jell-O, anything that is liquid at room temperature and you can see through. This will give your bowels time to rest. Complete full course of antibiotic as prescribed. Take Zofran as needed for nausea. Take tramadol as needed for pain. It may make you sleepy, and also may cause constipation. Follow-up with your primary care provider if your symptoms are not improving after several days of the antibiotic. Return for recurrent vomiting, or any other new, concerning, or worsening symptoms. All discharge instructions reviewed with patient and/or family. Voiced understanding. Scripts Tramadol HCl (Tramadol HCl) 50 Mg Tablet 50 MG PO Q6H, #12 TAB 0 Refills Prov: PEARL NORWOOD APRN 07/31/23 Ondansetron (Ondansetron Odt) 4 Mg Tab.rapdis 4 MG SL Q4H PRN for NAUSEA/VOMITING, #12 TAB 0 Refills Prov: PEARL NORWOOD APRN 07/31/23 Amoxicillin/Potassium Clav (Amox Tr-K Clv 875-125 mg Tab) 875 Mg-125 Mg Tablet 1 EACH PO BID for 10 Days, #19 TAB 0 Refills Prov: PEARL NORWOOD APRN 07/31/23 PEARL NORWOOD APRN Jul 31, 2023 17:56
[2023-07-31 17:57] LABS: TOTAL PROTEIN 7.6 GM/DL (6.4-8.2)
[2023-07-31 17:59] LABS: BILIRUBIN,TOTAL 0.4 MG/DL (0.1-1.0)
[2023-07-31] MEDS ORDERED: fentaNYL INJECTION 100 MCG/2 ML VIAL IVP ONE ×2 (18:00→19:15)
[2023-07-31] MEDS ORDERED: NS IV 1000 ML 1,000 ML IV SCH (18:00)
[2023-07-31] MEDS ORDERED: ONDANSETRON INJECTION 4 MG/2 ML (SDV) IVP ONE (18:00)
[2023-07-31 18:01] LABS: CREATININE SERUM 0.76 MG/DL (0.60-1.30)
[2023-07-31] MEDS ORDERED: IOHEXOL 350 MG/ML 100 ML (OMNIPAQUE 350) VIAL IV ONE (18:30)
[2023-07-31] MEDS ORDERED: NS 100 ML (IVPB) BAG IV ONE (18:30)
--- NOTE | 2023-07-31 18:57 | Diagnostic Imaging Report ---
EXAMINATION: CT abdomen and pelvis with intravenous contrast. TECHNIQUE: Multiple contiguous axial images were obtained through the abdomen and pelvis after the uneventful administration of intravenous contrast. All CT scans use one or more of the following dose optimizing techniques: automated exposure control, MA and/or KvP adjustment based on patient size and exam type or iterative reconstruction. HISTORY: Abdominal pain COMPARISON: None available. FINDINGS: Lung bases: Bibasilar dependent atelectasis. Solid organs: The liver is normal without focal lesion. The gallbladder is surgically absent. There is mild biliary ductal dilatation which may be secondary to reservoir effect from prior cholecystectomy. Pancreas is normal. Spleen is normal. Adrenal glands are normal. The kidneys are normal without hydronephrosis. Bowel: The stomach and small bowel are normal without obstruction. There is mild wall thickening seen within the left hemicolon. The appendix is normal. Peritoneum: There is no intraperitoneal free fluid or free air. No suspicious lymphadenopathy. Vasculature: Normal without aneurysm. Musculoskeletal: Degenerative changes of the spine without suspicious osseous lesion or compression fracture. Surgical changes of the right abdominal wall likely from prior hernia repair. Pelvis: The uterus and adnexa are normal. The urinary bladder is normal. IMPRESSION: 1. Mild wall thickening in the left hemicolon which could be seen with infectious or inflammatory colitis. Dictated by: Dictated on workstation # [id number]
[2023-07-31] MEDS ORDERED: AMOX1TAB12 PO (19:55)
[2023-07-31] MEDS ORDERED: ONDA4TAB11 SL (19:55)
[2023-07-31] MEDS ORDERED: TRAM50TA3 PO (19:55)
[2023-07-31] MEDS ORDERED: AMOXICILLIN/Clavulanate 875 MG TABLET PO ONE (20:00)
[2023-07-31 20:03] VITALS: BP 100/68
== END 2023-07-31 20:03 | disposition home or self-care (01) ==
LOC: EDUNIT# 17:02 → ER 17:05
DX: K52.9 Noninfective gastroenteritis and colitis, unspecified (principal); F17.210 Nicotine dependence, cigarettes, uncomplicated; Z90.49 Acquired absence of other specified parts of digestive tract
CPT/HCPCS: 36415; 74177; 80053; 81000; 83690; 84484; 84703; 85025; 93005; 96361; 96374; 96375; 96376